=== PATIENT | male | born 1950 | race Caucasian/White ===

== ENCOUNTER 2020-05-28 10:00 | Day surgery (SDC) | payer MEDICARE, MEDICAID, SELFPAY ==
[2020-05-21 15:26] VITALS: BMI 34.0
--- NOTE | 2020-05-26 09:07 | P.CONAN_ITS ---
Documented by User: Jyoti Whitaker 05/28/20 10:25 HPI - Anesthesia Eval Consult details Narrative: 69yo M for Colonoscopy Extensive cardiac and vascular disease Patient to cardiology 05/27/20 for clearance. Exertional capacity <4 METS. Increased risk, but no further testing due to low risk procedure. ICD interrogated 05/27/20 [facility] Past Medical History Medical History Angina pectoris CAD (coronary artery disease) Elevated cholesterol GERD (gastroesophageal reflux disease) History of blood transfusion HTN (hypertension) Hx of decubitus ulcer ICD (implantable cardioverter-defibrillator) in place Ischemic cardiomyopathy with implantable cardioverter-defibrillator (ICD) Myocardial infarction On beta cole at home Paroxysmal ventricular tachycardia Peripheral arterial disease PVD (peripheral vascular disease) Renal artery stenosis Surgical History Surgical History (Updated 05/28/20 @ 10:25 by Jyoti Whitaker) H/O cardiac catheterization History of heart artery stent History of renal stent Hx of qjrfv-tlccy-dnorcek bypass Hx of CABG Hx of colonoscopy Social History Social History Do you presently have visiting nurse or other home services: No Smoking Status: Former smoker Smoking Quit Date: Age 35 Use of substances other than those prescribed or required for medical reasons: No Have you been hit, kicked, punched, or otherwise hurt by someone within the past year? If so, by whom?: No Advance Directives: No Advance Directives Information Provided: No Advance Directives on File: No Recently lost weight without trying: No Meds Allergies Allergy/AdvReac Type Severity Reaction Status Date / Time meperidine [Demerol] Allergy Unknown Nausea and Verified 05/21/20 14:56 Vomiting ivp dye Allergy Unknown redness Uncoded 05/21/20 14:56 and itching Home Medications Medication Instructions Recorded Confirmed Type acetaminophen 650 mg PO Q6H PRN 05/21/20 05/21/20 History acyclovir 400 mg PO 05/21/20 History aspirin [Aspir-81] 81 mg PO DAILY 05/21/20 05/28/20 History calcium carbonate [Calcium 500] 500 mg PO BID 05/21/20 05/21/20 History clopidogrel 1 tab PO DAILY 05/21/20 05/28/20 History ezetimibe 1 tab PO DAILY 05/21/20 05/21/20 History isosorbide mononitrate 1 tab PO DAILY 05/21/20 05/28/20 History losartan 25 mg PO 05/21/20 History metoprolol succinate 1 tab PO DAILY 05/21/20 05/28/20 History metoprolol succinate 1 tab PO DAILY 05/21/20 05/28/20 History nitroglycerin 0.4 mg SUBLINGUAL 05/21/20 History omeprazole 1 cap PO DAILY 05/21/20 05/21/20 History rosuvastatin 1 tab PO BEDTIME 05/21/20 05/21/20 History Exam Exam Date and Time: May 26, 2020 0907 Height,Weight and Vital Signs: Height 5 ft 9 in Weight 104.326 kg Pertinent Lab Results Pertinent Lab Results: Laboratory Tests 12/19/19 04/27/20 10:30 11:30 WBC 8.7 Hgb 12.9 L Hct 39.3 L Plt Count 233 Sodium 138 Potassium 4.4 Chloride 102 BUN 23 H Creatinine 1.22 Assessment and Plan Assessment Anesthesia Assessment: Chart Reviewed Documented by User: Hermes Gonzalez 05/28/20 12:07 [facility] Past Medical History Medical History Angina pectoris CAD (coronary artery disease) Elevated cholesterol GERD (gastroesophageal reflux disease) History of blood transfusion HTN (hypertension) Hx of decubitus ulcer ICD (implantable cardioverter-defibrillator) in place Ischemic cardiomyopathy with implantable cardioverter-defibrillator (ICD) Myocardial infarction On beta cole at home Paroxysmal ventricular tachycardia Peripheral arterial disease PVD (peripheral vascular disease) Renal artery stenosis Surgical History Surgical History (Updated 05/28/20 @ 10:25 by Jyoti Whitaker) H/O cardiac catheterization History of heart artery stent History of renal stent Hx of okvhj-hnprr-yorkgjj bypass Hx of CABG Hx of colonoscopy Social History Social History Do you presently have visiting nurse or other home services: No Smoking Status: Former smoker Smoking Quit Date: Age 35 Use of substances other than those prescribed or required for medical reasons: No Have you been hit, kicked, punched, or otherwise hurt by someone within the past year? If so, by whom?: No Advance Directives: No Advance Directives Information Provided: No Advance Directives on File: No Recently lost weight without trying: No Meds Allergies Allergy/AdvReac Type Severity Reaction Status Date / Time meperidine [Demerol] Allergy Unknown Nausea and Verified 05/21/20 14:56 Vomiting ivp dye Allergy Unknown redness Uncoded 05/21/20 14:56 and itching Home Medications Medication Instructions Recorded Confirmed Type acetaminophen 650 mg PO Q6H PRN 05/21/20 05/21/20 History acyclovir 400 mg PO 05/21/20 History aspirin [Aspir-81] 81 mg PO DAILY 05/21/20 05/28/20 History calcium carbonate [Calcium 500] 500 mg PO BID 05/21/20 05/21/20 History clopidogrel 1 tab PO DAILY 05/21/20 05/28/20 History ezetimibe 1 tab PO DAILY 05/21/20 05/21/20 History isosorbide mononitrate 1 tab PO DAILY 05/21/20 05/28/20 History losartan 25 mg PO 05/21/20 History metoprolol succinate 1 tab PO DAILY 05/21/20 05/28/20 History metoprolol succinate 1 tab PO DAILY 05/21/20 05/28/20 History nitroglycerin 0.4 mg SUBLINGUAL 05/21/20 History omeprazole 1 cap PO DAILY 05/21/20 05/21/20 History rosuvastatin 1 tab PO BEDTIME 05/21/20 05/21/20 History Exam Airway Mallampati Class: II TM Dist: >3cm Neck ROM: Limited Heart: RRR Assessment and Plan Assessment Anesthesia Assessment: Anesthesia Plan Discussed Final Anesthetic Review NPO: Yes ASA Class: IV Anesthetic Plan Anesthetic Plan: MAC:
[2020-05-28 11:41] VITALS: BP 158/66; PULSE 46; RESP 18; TEMP 36.4; O2SAT 100
--- NOTE | 2020-05-28 12:06 | P.HPSUR_ITS ---
Pre-Procedural Eval Section B Chief Complaint: Screening Relevant Family History (Specify if Yes): No Relevant Social History: None Present Medications: see Short Stay Collaborative assessment Medical History: Significant History (CAD, [place], renal art stenosis, HTN) History of Previous Operations: Relevant previous surgery/procedure and date(s) (CABG, renal artery stent) Allergies: Allergies Allergy/AdvReac Type Severity Reaction Status Date / Time meperidine [Demerol] Allergy Unknown Nausea and Verified 05/21/20 14:56 Vomiting ivp dye Allergy Unknown redness Uncoded 05/21/20 14:56 and itching Review of Systems Sugical H&P ROS: Negative: Constitution, Cardiovascular, Respiratory, Neurological, Psychiatric, Hem-Onc, Allergic/Immunologic, Gastrointestinal, Genitourinary, Musculoskeletal, Integumentary, Endocrine and Eyes/Ears/Nose/Throat Exam Surgical H&P Exam: Normal: HEENT, Normal: Heart, Normal: Lungs, Normal: Extre mities, Normal: Abdomen, Normal: Skin and Normal: Neurological Plan Diagnosis/Plan: Unchanged Patient has been examined and remains a candidate for the planned procedure
[2020-05-28 12:55] VITALS: BP 82/56; PULSE 42; RESP 12; TEMP 36.6; O2SAT 95
--- NOTE | 2020-05-28 12:55 | P.BOP_ITS ---
Brief Operative Note Date of procedure: 05/28/20 Pre-op diagnosis: colon screen Post-op diagnosis: same Procedure: Operative Information Procedure Description: Colonoscopy COLONOSCOPY Instrument: Olympus variable stiffness pediatric scope 190L Colonoscopy Monitoring: Vital signs and clinical assessment, continuous EKG monitoring, Pulse oximetry, Carbon Dioxide monitoring and blood pressure monitoring were done throughout the procedure. Colon withdrawal time was 18 minutes. Procedure: The patient was placed in the left lateral decubitis position and pre-procedure medications were administered. After a digital rectal examination of the ano-rectum, the video colonoscope was inserted into the rectum and advanced through the colon to the cecum/TI. The colonoscope was slowly withdrawn in a retrograde panoramic fashion and the colon mucosa was carefully examined including a retroflexed view of the rectum. Findings and interventions are described below. Procedure Difficulty: Findings: Terminal Ileum-normal Cecum: 5-6 mm sessile polyp removed with forceps Ascending Colon: normal Transverse Colon -normal Descending Colon: 10-12 mm sessile polyp removed with cold snare, 2 clips used to close defect Sigmoid Colon: severe diverticulosis with mucosal hypertrophy and large mouthed tics Rectum: Retroflexion with moderate sized internal hemorrhoids, grade 1 Anorectum - normal Colon preparation: [place] Bowel Preparation Scale Right colon; 3 Transverse colon: 2 Left colon; 3 (0 = Unprepared colon segment with mucosa not seen due to solid stool that cannot be cleared. 1 = Portion of mucosa of the colon segment seen, but other areas of the colon segment not well seen due to staining, residual stool and/or opaque liquid. 2 = Minor amount of residual staining, small fragments of stool and/or opaque liquid, but mucosa of colon segment seen well. 3 = Entire mucosa of colon segment seen well with no residual staining, small fragments of stool or opaque liquid) Impression and Post Procedure Diagnosis: sigmoid diverticulosis internal hemorrhoids polyps Plan: High fiber diet leaflet Avoid straining at stool, epsom salts and sitz bath as needed, anusol supps or cream prn Repeat Colonoscopy in 5-10 years pending path, if health allows, otherwise this would be considered his last screening colonoscopy. Above findings were reviewed with the patient and relevant handouts were provided if indicated. Surgeon: Mello Wallis MD Anesthesia: MAC Condition: stable Disposition: PACU
[2020-05-28 13:18] VITALS: BP 104/48; PULSE 50; RESP 14; O2SAT 96
[2020-05-28 13:33] VITALS: BP 128/56; PULSE 43; RESP 16; TEMP 36.6; O2SAT 98
== END 2020-05-28 14:13 | disposition home or self-care (01) ==
PROVIDERS: PCP Nurse Practitioner Family; Visit Provider Internal Medicine Gastroenterology
PROC: 0DJD8ZZ Inspection of Lower Intestinal Tract, Via Natural or Artificial Opening Endoscopic (ICD-10-PCS; CPT 45378; principal; 2020-05-28 12:50)
DX: Z12.11 Encounter for screening for malignant neoplasm of colon (principal); D12.4 Benign neoplasm of descending colon; K63.5 Polyp of colon; K57.30 Diverticulosis of large intestine without perforation or abscess without bleeding; K64.0 First degree hemorrhoids; K21.9 Gastro-esophageal reflux disease without esophagitis; I25.119 Atherosclerotic heart disease of native coronary artery with unspecified angina pectoris; Z98.61 Coronary angioplasty status; Z95.1 Presence of aortocoronary bypass graft; I10 Essential (primary) hypertension; I73.9 Peripheral vascular disease, unspecified; I70.1 Atherosclerosis of renal artery; Z95.810 Presence of automatic (implantable) cardiac defibrillator; E78.00 Pure hypercholesterolemia, unspecified; Z79.899 Other long term (current) drug therapy
CPT/HCPCS: 45385; 45380; 88305

== ENCOUNTER → 2020-06-08 08:31 | Outpatient (BNVA) | payer MEDICARE, MEDICAID, SELFPAY | PROVIDERS: PCP Nurse Practitioner Family; Referring Provider Nurse Practitioner Family; Visit Provider Nurse Practitioner | DX: D12.6 Benign neoplasm of colon, unspecified (principal) | CPT/HCPCS: 99213 ==

== ENCOUNTER 2020-06-29 08:47 | Outpatient (REF) | payer MEDICARE, MEDICAID, SELFPAY ==
--- NOTE | 2020-06-29 | US_ITS ---
EXAMINATION: NONINVASIVE ASSESSMENT OF THE ARTERIES OF BOTH LOWER EXTREMITIES WITH PVR EXAM AND BILATERAL LOWER EXTREMITY DUPLEX CLINICAL INFORMATION: Peripheral vascular disease TECHNIQUE: Ankle pulse volume recordings, ankle pressure measurements and ankle brachial indices were obtained of the lower extremity arterial system bilaterally in addition to duplex Doppler techniques with wave form analysis and measurement of velocities in the common femoral, profunda femoral, superficial femoral, popliteal and tibial arteries. The study was performed only at rest. COMPARISON: Previous exam December 2019 FINDINGS: There is a left axillary artery to left common femoral artery and left femoral to right femoral artery bypass graft. Both grafts are patent. Peak systolic velocity in the subclavian artery is 173 to 191 cm/s with biphasic flow. Peak systolic velocity in the graft is 238 cm/s with biphasic flow. There is hypoechoic material seen around the graft suggestive of a hematoma or leak that is unchanged. The femoral to femoral bypass graft is patent. Peak systolic velocity measures 207 cm/s with biphasic flow. RIGHT LE. The right ankle-brachial index is: 0.5 2. Right ankle pressure: Decreased 3. Right ankle PVR waveform: Dampened 4. Right direct duplex Doppler findings: * Common femoral artery: 36 cm/s, Diastolic flow reversal: No, biphasic * Superficial femoral artery (proximal, mid, distal): 67 proximal, 120 mid cm/s, the distal superficial femoral artery is occluded. Diastolic flow reversal: No, biphasic to monophasic. * Popliteal artery: Occluded * Posterior tibial artery: 8 cm/s, Diastolic flow reversal: No. Monophasic. The right profunda is occluded just beyond its origin. There is a graft off the right superficial femoral artery to the tibioperoneal trunk. This is occluded. LEFT LE. The left ankle-brachial index is: 0.78 2. Left ankle pressure: normal. 3. Left ankle PVR waveform: normal. 4. Left direct duplex Doppler findings: * Common femoral artery: 73 cm/s, Diastolic flow reversal: No, biphasic flow * Superficial femoral artery (proximal, mid, distal): 38 cm/s proximally and occluded in the mid and distal portions., Diastolic flow reversal: No, biphasic. * There is a graft off the left superficial femoral artery to the tibial peroneal trunk that is patent. This is not well visualized proximally/proximal anastomosis is not seen. Peak systolic velocity measures 51 cm/s with biphasic flow. * Popliteal artery: 23 cm/s, Diastolic flow reversal: No, monophasic. * Posterior tibial artery: 26 cm/s, Diastolic flow reversal: No, biphasic. The left profunda is patent. DOMINIQUE Reference: * >0.97-1.25 = normal - no significant arterial disease * 0.75-0.96 = mild peripheral arterial disease * 0.5-0.74 = moderate peripheral arterial disease * <0.50 = severe peripheral arterial disease US/US DOMINIQUE complete IMPRESSION: Patent left axillary to left femoral bypass graft. Patent femoral to femoral bypass graft. There is increased soft tissue seen surrounding the graft suggestive of a hematoma or leak that is stable. Right: The right DOMINIQUE is 0.5. The [place] right distal superficial femoral and popliteal arteries are occluded. The right femoral to tibioperoneal bypass graft is occluded. Left: The left DOMINIQUE is 0.8. The left superficial femoral artery to tibioperoneal trunk bypass graft is patent. The left posterior tibial is patent with biphasic flow. Findings are similar to December 2019 exam.
== END 2020-06-29 08:48 | disposition home or self-care (01) ==
LOC: HO.US 08:47
PROVIDERS: Visit Provider Surgery Vascular Surgery
DX: I73.9 Peripheral vascular disease, unspecified (principal)
CPT/HCPCS: 93923; 93925

== ENCOUNTER 2020-07-13 10:28 | Outpatient (REF) | payer MEDICARE, MEDICAID, SELFPAY ==
[2020-07-13 12:20] LABS: Alanine Aminotransferase 16 U/L (0-40); Albumin Level 4.2 g/dL (3.5-5.0); Alkaline Phosphatase 48 U/L (39-117); Anion Gap 13 (12-20); Aspartate Amino Transferase 20 U/L (5-37); Bilirubin Total 0.6 mg/dL (0.0-1.0); Blood Urea Nitrogen 16 mg/dL (9-16); Carbon Dioxide 28 mmol/L (22-29); Chloride 105 mmol/L (96-108); Cholesterol 146 mg/dL; Estimated Glomerular Filt Rate > 60; Glucose Fasting 97 mg/dL (60-99); HDL Cholesterol 44 mg/dL; LDL Cholesterol Calculated 61 mg/dl; Potassium 4.6 mmol/l (3.3-5.1); Sodium 141 mmol/L (135-145); Total Protein 6.9 g/dL (6.5-8.0); Triglycerides 209 mg/dL
== END 2020-07-13 10:29 | disposition home or self-care (01) ==
LOC: HO.HMGCLDS 10:28
PROVIDERS: PCP Nurse Practitioner Family; Visit Provider Nurse Practitioner Family
DX: I73.9 Peripheral vascular disease, unspecified (principal)
CPT/HCPCS: 80053; 80061

== ENCOUNTER → 2020-07-14 09:01 | Outpatient (BNVA) | payer MEDICAID, MEDICARE, SELFPAY | PROVIDERS: PCP Nurse Practitioner Family; Referring Provider Nurse Practitioner Family; Visit Provider Surgery Vascular Surgery | DX: Z76.89 Persons encountering health services in other specified circumstances (principal) ==

== ENCOUNTER 2020-07-17 09:43 | Outpatient (REF) | payer MEDICARE, MEDICAID, SELFPAY ==
[2020-07-17 12:04] LABS: Prostate Specific Antigen Scr 0.78 ng/mL (<0.05-4.0)
== END 2020-07-17 09:44 | disposition home or self-care (01) ==
LOC: HO.HMGCLDS 09:43
PROVIDERS: PCP Nurse Practitioner Family; Visit Provider Nurse Practitioner Family
DX: Z12.5 Encounter for screening for malignant neoplasm of prostate (principal)
CPT/HCPCS: 84153

== ENCOUNTER → 2020-10-08 14:44 | Outpatient (BNVA) | payer MEDICARE, MEDICAID, SELFPAY | PROVIDERS: PCP Nurse Practitioner Family; Visit Provider Surgery Vascular Surgery | DX: I73.9 Peripheral vascular disease, unspecified (principal) | CPT/HCPCS: 99212 ==

== ENCOUNTER 2020-10-19 13:17 | Outpatient (REF) | payer MEDICARE, MEDICAID, SELFPAY ==
--- NOTE | ~2020-10-19 | US_ITS ---
EXAMINATION: COLOR-FLOW DUPLEX IMAGING OF THE BILATERAL LOWER EXTREMITY ARTERIAL SYSTEM. VELOCITY MEASUREMENTS THROUGHOUT THE FEMORAL ARTERIES. CLINICAL INFORMATION: 70-year-old male status post left axillary to bifemoral bypass graft and reverse saphenous vein graft in the right leg, now presenting with bilateral leg ischemia. COMPARISON: Bilateral leg arterial Doppler study and DOMINIQUE of 06/29/2020. FINDINGS: The left axillary to bifemoral bypass graft is occluded. RIGHT FEMORAL RUNOFF VELOCITIES: The right common femoral artery is occluded. The right profunda femoral artery is occluded. Right superficial femoral artery is occluded. Right popliteal velocity is occluded. Posterior tibial velocity is occluded proximally with trace flow distally. Anterior tibial velocity is occluded. Dorsal pedis velocity is occluded. No flow is seen in the reverse saphenous vein bypass graft in the right leg. Right DOMINIQUE: 0.27 LEFT FEMORAL RUNOFF VELOCITIES: The left common femoral artery measures 67cm/s and is monophasic. The left profunda femoral artery is occluded. Left proximal superficial femoral artery measures 20 cm/s and is monophasic. Mid and distal superficial femoral artery are occluded. Left popliteal velocity is occluded. Posterior tibial velocity is 32cm/s and flow is monophasic. Anterior tibial velocity is occluded. Dorsal pedis velocity is trace and flow is monophasic. The superficial femoral vein occludes just after the origin of the left reverse saphenous vein graft. Graft is patent as entirely. The posterior tibial artery has flow. Left DOMINIQUE: 0.54 US/US arterial duplex LE BI IMPRESSION: 1. Occluded subclavian to femoral-femoral bypass graft which is new since the prior examination. 2. Occluded right reverse saphenous vein graft from the common femoral artery to the tibioperoneal trunk as previously seen. Essentially no flow seen in the [place] arteries of the right leg. 3. Persistent patent left reversed saphenous vein graft from the proximal superficial femoral artery to the tibioperoneal trunk.
--- NOTE | ~2020-10-19 | US_ITS ---
EXAMINATION: COLOR-FLOW DUPLEX IMAGING OF THE BILATERAL LOWER EXTREMITY ARTERIAL SYSTEM. VELOCITY MEASUREMENTS THROUGHOUT THE FEMORAL ARTERIES. CLINICAL INFORMATION: 70-year-old male status post left axillary to bifemoral bypass graft and reverse saphenous vein graft in the right leg, now presenting with bilateral leg ischemia. COMPARISON: Bilateral leg arterial Doppler study and DOMINIQUE of 06/29/2020. FINDINGS: The left axillary to bifemoral bypass graft is occluded. RIGHT FEMORAL RUNOFF VELOCITIES: The right common femoral artery is occluded. The right profunda femoral artery is occluded. Right superficial femoral artery is occluded. Right popliteal velocity is occluded. Posterior tibial velocity is occluded proximally with trace flow distally. Anterior tibial velocity is occluded. Dorsal pedis velocity is occluded. No flow is seen in the reverse saphenous vein bypass graft in the right leg. Right DOMINIQUE: 0.27 LEFT FEMORAL RUNOFF VELOCITIES: The left common femoral artery measures 67cm/s and is monophasic. The left profunda femoral artery is occluded. Left proximal superficial femoral artery measures 20 cm/s and is monophasic. Mid and distal superficial femoral artery are occluded. Left popliteal velocity is occluded. Posterior tibial velocity is 32cm/s and flow is monophasic. Anterior tibial velocity is occluded. Dorsal pedis velocity is trace and flow is monophasic. The superficial femoral vein occludes just after the origin of the left reverse saphenous vein graft. Graft is patent as entirely. The posterior tibial artery has flow. Left DOMINIQUE: 0.54 US/US DOMINIQUE complete IMPRESSION: 1. Occluded subclavian to femoral-femoral bypass graft which is new since the prior examination. 2. Occluded right reverse saphenous vein graft from the common femoral artery to the tibioperoneal trunk as previously seen. Essentially no flow seen in the [place] arteries of the right leg. 3. Persistent patent left reversed saphenous vein graft from the proximal superficial femoral artery to the tibioperoneal trunk.
== END 2020-10-19 13:18 | disposition home or self-care (01) ==
LOC: HO.US 13:17
PROVIDERS: PCP Nurse Practitioner Family; Visit Provider Surgery Vascular Surgery
DX: I65.29 Occlusion and stenosis of unspecified carotid artery (principal); I70.213 Atherosclerosis of native arteries of extremities with intermittent claudication, bilateral legs
CPT/HCPCS: 93923; 93925

== ENCOUNTER 2020-10-30 10:57 | Outpatient (REF) | payer MEDICARE, MEDICAID, SELFPAY ==
[2020-10-30 15:12] LABS: Alanine Aminotransferase 16 U/L (0-40); Albumin Level 4.3 g/dL (3.5-5.0); Alkaline Phosphatase 42 U/L (39-117); Anion Gap 15 (12-20); Aspartate Amino Transferase 22 U/L (5-37); Bilirubin Total 0.7 mg/dL (0.0-1.0); Blood Urea Nitrogen 20 mg/dL (9-16); Carbon Dioxide 23 mmol/L (22-29); Chloride 105 mmol/L (96-108); Cholesterol 145 mg/dL; Estimated Glomerular Filt Rate > 60; Glucose Fasting 92 mg/dL (60-99); HDL Cholesterol 45 mg/dL; LDL Cholesterol Calculated 58 mg/dl; Potassium 4.3 mmol/L (3.3-5.1); Sodium 139 mmol/L (135-145); Total Protein 6.9 g/dL (6.5-8.0); Triglycerides 211 mg/dL
== END 2020-10-30 10:58 | disposition home or self-care (01) ==
LOC: HO.HMGCLDS 10:57
PROVIDERS: PCP Nurse Practitioner Family; Visit Provider Nurse Practitioner Family
DX: I73.9 Peripheral vascular disease, unspecified (principal)
CPT/HCPCS: 36415; 80053; 80061

== ENCOUNTER → 2020-11-03 11:26 | Outpatient (BNVA) | payer MEDICARE, MEDICAID, SELFPAY | PROVIDERS: PCP Nurse Practitioner Family; Visit Provider Surgery Vascular Surgery | CPT/HCPCS: 99212 ==

== ENCOUNTER 2021-06-09 08:35 | Outpatient (REF) | payer MEDICARE, MEDICAID, SELFPAY ==
[2021-06-09 11:25] LABS: Appearance Urine CLEAR; Color Urine YELLOW; Glucose Urine UA NEG (NEG); Leukocyte Esterase Urine NEG (NEG); Nitrite Urine NEG (NEG); UACC Culture Trigger NO; Urine Blood NEG (NEG); Urine Ketones NEG (NEG); Urine Protein 2+ MG/DL (NEG-TRACE)
[2021-06-09 11:43] LABS: RBC Urine 0-2 /HPF (0); Squamous Epithelial Cell Urine TRACE /LPF; WBC Urine 0-2 /HPF (0-4)
[2021-06-09 11:58] LABS: Alanine Aminotransferase 25 U/L (0-40); Albumin Level 4.4 g/dL (3.5-5.0); Alkaline Phosphatase 35 U/L (39-117); Anion Gap 13 (12-20); Aspartate Amino Transferase 24 U/L (5-37); Bilirubin Total 0.9 mg/dL (0.0-1.0); Blood Urea Nitrogen 17 mg/dL (9-16); Calcium 9.3 mg/dL (8.4-10.2); Carbon Dioxide 27 mmol/L (22-29); Chloride 103 mmol/L (96-108); Cholesterol 133 mg/dL; Estimated Glomerular Filt Rate > 60; Glucose Fasting 99 mg/dL (60-99); HDL Cholesterol 41 mg/dL; LDL Cholesterol Calculated 51 mg/dl; Potassium 4.2 mmol/L (3.3-5.1); Sodium 139 mmol/L (135-145); Total Protein 6.9 g/dL (6.5-8.0); Triglycerides 208 mg/dL
[2021-06-09 12:22] LABS: TSH reflex Free T4 1.75 uIU/mL (0.32-4.0)
== END 2021-06-09 08:36 | disposition home or self-care (01) ==
LOC: HO.HMGCLDS 08:35
PROVIDERS: PCP Nurse Practitioner Family; Visit Provider Nurse Practitioner Family
DX: I21.9 Acute myocardial infarction, unspecified (principal); E78.1 Pure hyperglyceridemia; Z12.5 Encounter for screening for malignant neoplasm of prostate
CPT/HCPCS: 36415; 80053; 80061; 81001; 84153; 84443

== ENCOUNTER 2021-07-05 11:29 | Outpatient (REF) | payer MEDICARE, MEDICAID, SELFPAY | END 2021-07-05 11:30 | disposition home or self-care (01) | LOC: HO.HMGCLDS 11:29 | PROVIDERS: Visit Provider Internal Medicine | DX: Z20.822 Contact with and (suspected) exposure to COVID-19 (principal) | CPT/HCPCS: C9803; U0003; U0005 ==

== ENCOUNTER 2021-07-28 09:39 | Outpatient (REF) | payer MEDICARE, MEDICAID, SELFPAY ==
[2021-07-28 11:35] LABS: Appearance Urine CLEAR; Color Urine YELLOW; Glucose Urine UA NEG (NEG); Leukocyte Esterase Urine NEG (NEG); Nitrite Urine NEG (NEG); Specific Gravity - Urine 1.025 (1.005-1.025); UACC Culture Trigger NO; Urine Blood NEG (NEG); Urine Ketones NEG (NEG); Urine Protein 2+ MG/DL (NEG-TRACE)
[2021-07-28 12:04] LABS: Alanine Aminotransferase 28 U/L (0-40); Albumin Level 4.2 g/dL (3.5-5.0); Alkaline Phosphatase 32 U/L (39-117); Anion Gap 15 (12-20); Aspartate Amino Transferase 25 U/L (5-37); Bilirubin Total 0.7 mg/dL (0.0-1.0); Blood Urea Nitrogen 19 mg/dL (9-16); Calcium 9.4 mg/dL (8.4-10.2); Carbon Dioxide 27 mmol/L (22-29); Chloride 103 mmol/L (96-108); Cholesterol 134 mg/dL; Estimated Glomerular Filt Rate > 60; Glucose Fasting 98 mg/dL (60-99); HDL Cholesterol 43 mg/dL; LDL Cholesterol Calculated 44 mg/dl; Potassium 4.5 mmol/L (3.3-5.1); Sodium 140 mmol/L (135-145); Total Protein 6.9 g/dL (6.5-8.0); Triglycerides 239 mg/dL
[2021-07-28 12:23] LABS: Squamous Epithelial Cell Urine TRACE /LPF
[2021-07-28 12:24] LABS: RBC Urine 0-2 /HPF (0); WBC Urine 0-2 /HPF (0-4)
[2021-07-28 12:29] LABS: TSH reflex Free T4 2.37 uIU/mL (0.32-4.0)
== END 2021-07-28 09:40 | disposition home or self-care (01) ==
LOC: HO.HMGCLDS 09:39
PROVIDERS: PCP Nurse Practitioner Family; Visit Provider Nurse Practitioner Family
DX: E78.5 Hyperlipidemia, unspecified (principal); I21.9 Acute myocardial infarction, unspecified
CPT/HCPCS: 36415; 80053; 80061; 81001; 84443

== ENCOUNTER 2021-10-13 08:06 | Outpatient (REF) | payer MEDICARE, MEDICAID, SELFPAY ==
[2021-10-13 11:17] LABS: Appearance Urine CLEAR; Color Urine YELLOW; Glucose Urine UA NEG (NEG); Leukocyte Esterase Urine NEG (NEG); Nitrite Urine NEG (NEG); PH 6.5 (5.0-8.0); Specific Gravity - Urine 1.025 (1.005-1.025); UACC Culture Trigger NO; Urine Blood TRACE (NEG); Urine Ketones NEG (NEG); Urine Protein 3+ MG/DL (NEG-TRACE)
[2021-10-13 11:52] LABS: RBC Urine 0 /HPF (0); WBC Urine 0-2 /HPF (0-4)
[2021-10-13 11:54] LABS: Cholesterol 137 mg/dL; HDL Cholesterol 45 mg/dL; LDL Cholesterol Calculated 45 mg/dl; Triglycerides 235 mg/dL
== END 2021-10-13 08:07 | disposition home or self-care (01) ==
LOC: HO.HMGCLDS 08:06
PROVIDERS: Visit Provider Nurse Practitioner Family
DX: E78.1 Pure hyperglyceridemia (principal); I21.9 Acute myocardial infarction, unspecified
CPT/HCPCS: 36415; 80061; 81001

== ENCOUNTER 2022-03-16 10:34 | Outpatient (REF) | payer MEDICARE, SELFPAY ==
[2022-03-16 13:28] LABS: MANUAL DIFF FLAG NO
[2022-03-16 13:39] LABS: Basophils Absolute Auto 0.1 X10*3/uL (0.0-0.2); Basophils Percent Auto 0.8 % (0-2); Eosinophils Absolute Auto 0.4 X10*3/uL (0.0-0.4); Hematocrit 42.7 % (42.0-52.0); Hemoglobin 13.8 g/dl (14.0-18.0); Imm Gran Abs Auto 0.04 X10*3/uL (0.00-0.03); Imm Gran Pct Auto 0.4 % (0.0-0.4); Lymphocytes Absolute Auto 3.4 X10*3/uL (1.2-4.9); Lymphocytes Percent Auto 34.3 % (20-40); Mean Corpuscular HGB Conc 32.3 g/dl (31.0-36.0); Mean Corpuscular Hemoglobin 28.9 pg (27.0-33.0); Mean Corpuscular Volume 89.3 fL (80.0-98.0); Mean Platelet Volume 9.8 fL (9.4-12.4); Monocytes Absolute Auto 0.6 X10*3/uL (0.1-1.2); Neutrophils Absolute Auto 5.4 x10*3/uL (2.0-8.3); Neutrophils Percent Auto 54.5 % (45-73); Platelet Count 208 X10*3/uL (160-400); Red Blood Count 4.78 X10*6/uL (4.60-5.80); Red Cell Distribution Width 13.4 % (11.0-16.0); White Blood Count 9.8 X10*3/uL (4.8-10.8)
[2022-03-16 13:58] LABS: Appearance Urine CLOUDY; Color Urine YELLOW; Glucose Urine UA NEG (NEG); Leukocyte Esterase Urine NEG (NEG); Nitrite Urine NEG (NEG); Specific Gravity - Urine >= 1.030 (1.005-1.025); UACC Culture Trigger NO; Urine Blood NEG (NEG); Urine Ketones NEG (NEG); Urine Protein 2+ MG/DL (NEG-TRACE)
[2022-03-16 14:23] LABS: Amorphous Sediment Urine 3+ /LPF; Bacteria Urine TRACE /LPF; RBC Urine 0-2 /HPF (0); Squamous Epithelial Cell Urine TRACE /LPF; WBC Urine 0-2 /HPF (0-4)
[2022-03-16 14:36] LABS: TSH reflex Free T4 1.82 uIU/mL (0.32-4.0)
[2022-03-16 15:12] LABS: Alanine Aminotransferase 19 U/L (0-40); Albumin Level 4.5 g/dL (3.5-5.0); Alkaline Phosphatase 33 U/L (39-117); Anion Gap 18 (12-20); Aspartate Amino Transferase 17 U/L (5-37); Bilirubin Total 0.6 mg/dL (0.0-1.0); Blood Urea Nitrogen 27 mg/dL (9-16); Calcium 9.1 mg/dL (8.4-10.2); Carbon Dioxide 23 mmol/L (22-29); Chloride 106 mmol/L (96-108); Cholesterol 127 mg/dL; Estimated Glomerular Filt Rate 51; Glucose Fasting 107 mg/dL (60-99); HDL Cholesterol 38 mg/dL; LDL Cholesterol Calculated 50 mg/dl; Potassium 4.8 mmol/L (3.3-5.1); Sodium 142 mmol/L (135-145); Total Protein 7.2 g/dL (6.5-8.0); Triglycerides 196 mg/dL
== END 2022-03-16 10:35 | disposition home or self-care (01) ==
LOC: HO.HMGCLDS 10:34
PROVIDERS: PCP Nurse Practitioner Family; Visit Provider Nurse Practitioner Family
DX: E78.5 Hyperlipidemia, unspecified (principal)
CPT/HCPCS: 36415; 80053; 80061; 81001; 81003; 84443; 85025

== ENCOUNTER 2022-04-21 10:00 | Outpatient (REF) | payer MEDICARE, MEDICAID, SELFPAY ==
[2022-04-21 12:55] LABS: Prostate Specific Antigen Scr 0.73 ng/mL (<0.05-4.0)
== END 2022-04-21 10:01 | disposition home or self-care (01) ==
LOC: HO.HMGCLDS 10:00
PROVIDERS: PCP Nurse Practitioner Family; Visit Provider Nurse Practitioner Family
DX: Z12.5 Encounter for screening for malignant neoplasm of prostate (principal)
CPT/HCPCS: 36415; 84153

== ENCOUNTER 2023-01-10 12:02 | Outpatient (REF) | payer MEDICARE, MEDICAID, SELFPAY ==
--- NOTE | ~2023-01-10 | XR_ITS ---
EXAMINATION: XR SHOULDER, LEFT CLINICAL INFORMATION: Left shoulder pain. COMPARISON: None available. TECHNIQUE: AP external rotation, Grashey, scapular Y, and axillary views of the left shoulder. FINDINGS: There are some degenerative changes present at the AC joint. Some minimal degenerative changes seen at the inferior glenoid with some minimal sclerosis. The glenohumeral joint is preserved. No calcification is seen in the rotator cuff. Changes of CABG and median sternotomy are noted. The visualized ribs are unremarkable. XR/XR shoulder LT min 2V IMPRESSION: Mild degenerative changes in the AC joint and inferior glenoid.
== END 2023-01-10 12:03 | disposition home or self-care (01) ==
LOC: HO.XRAY 12:02
PROVIDERS: PCP Nurse Practitioner Family; Visit Provider Nurse Practitioner Family
DX: M25.512 Pain in left shoulder (principal)
CPT/HCPCS: 73030

== ENCOUNTER 2023-03-16 09:04 | Outpatient (REF) | payer MEDICARE, MEDICAID, SELFPAY ==
[2023-03-16 11:26] LABS: MANUAL DIFF FLAG NO
[2023-03-16 11:47] LABS: Basophils Absolute Auto 0.1 X10*3/uL (0.0-0.2); Basophils Percent Auto 0.9 % (0-2); Eosinophils Absolute Auto 0.3 X10*3/uL (0.0-0.4); Eosinophils Percent Auto 4.1 % (0-4); Hematocrit 40.4 % (42.0-52.0); Imm Gran Abs Auto 0.01 X10*3/uL (0.00-0.03); Imm Gran Pct Auto 0.1 % (0.0-0.4); Lymphocytes Absolute Auto 2.5 X10*3/uL (1.2-4.9); Lymphocytes Percent Auto 35.6 % (20-40); Mean Corpuscular HGB Conc 32.2 g/dl (31.0-36.0); Mean Corpuscular Hemoglobin 29.1 pg (27.0-33.0); Mean Corpuscular Volume 90.4 fL (80.0-98.0); Mean Platelet Volume 10.2 fL (9.4-12.4); Monocytes Absolute Auto 0.4 X10*3/uL (0.1-1.2); Neutrophils Absolute Auto 3.7 x10*3/uL (2.0-8.3); Neutrophils Percent Auto 53.3 % (45-73); Platelet Count 165 X10*3/uL (160-400); Red Blood Count 4.47 X10*6/uL (4.60-5.80); Red Cell Distribution Width 13.5 % (11.0-16.0); White Blood Count 6.9 X10*3/uL (4.8-10.8)
[2023-03-16 12:05] LABS: Alanine Aminotransferase 15 U/L (0-40); Albumin Level 4.3 g/dL (3.5-5.0); Alkaline Phosphatase 29 U/L (39-117); Anion Gap 16 (12-20); Aspartate Amino Transferase 19 U/L (5-37); Bilirubin Total 0.6 mg/dL (0.0-1.0); Blood Urea Nitrogen 23 mg/dL (9-16); Calcium 9.6 mg/dL (8.4-10.2); Carbon Dioxide 20 mmol/L (22-29); Chloride 108 mmol/L (96-108); Cholesterol 115 mg/dL; Estimated Glomerular Filt Rate > 60; Glucose Fasting 103 mg/dL (60-99); HDL Cholesterol 38 mg/dL; LDL Cholesterol Calculated 42 mg/dl; Potassium 4.3 mmol/L (3.3-5.1); Sodium 140 mmol/L (135-145); Triglycerides 179 mg/dL
[2023-03-16 12:08] LABS: Prostate Specific Antigen Scr 0.69 ng/mL (<0.05-4.0)
[2023-03-16 12:10] LABS: Appearance Urine Clear; Color Urine Yellow; Glucose Urine UA Negative (Negative); Leukocyte Esterase Urine Negative (Negative); Nitrite Urine Negative (Negative); PH 5.5 (5.0-9.0); UMIC TRIGGER UACC YES; Urine Blood Trace (Negative); Urine Ketones Negative (Negative); Urine Protein 300 (3+) mg/dL (Neg-Trace)
[2023-03-16 12:14] LABS: Bacteria Urine None Seen (None Seen); Hyaline Casts Urine 0-2 /LPF (0-2); RBC Urine 0-2 /HPF (0-2); Squamous Epithelial Cell Urine 0-2 /HPF (0-2); WBC Urine 0-5 /HPF (0-5)
== END 2023-03-16 09:05 | disposition home or self-care (01) ==
LOC: HO.HMGCLDS 09:04
PROVIDERS: PCP Nurse Practitioner Family; Visit Provider Nurse Practitioner Family
DX: Z12.5 Encounter for screening for malignant neoplasm of prostate (principal); I73.9 Peripheral vascular disease, unspecified; E78.5 Hyperlipidemia, unspecified
CPT/HCPCS: 36415; 80053; 80061; 81001; 81003; 84153; 84443; 85025

== ENCOUNTER 2023-03-29 08:54 | Outpatient (AMB) | payer MEDICARE, MEDICAID, SELFPAY ==
--- NOTE | 2023-03-29 09:10 | AM.OFFVISMDC ---
Intake Intake Visit Reasons: Annual PE Allergies meperidine [Demerol] Allergy (Unknown, Verified 01/05/23 13:03) Nausea and Vomiting ivp dye Allergy (Unknown, Uncoded 03/28/22 12:49) redness and itching PFSH Medical History (Reviewed 01/05/23 @ 13:03 by Kwaku Flood [facility]) Angina pectoris CAD (coronary artery disease) Dilated cardiomyopathy Elevated cholesterol GERD (gastroesophageal reflux disease) History of blood transfusion HTN (hypertension) Hx of decubitus ulcer ICD (implantable cardioverter-defibrillator) in place Ischemic cardiomyopathy Ischemic cardiomyopathy with implantable cardioverter-defibrillator (ICD) Myocardial infarction On beta cole at home Paroxysmal ventricular tachycardia Peripheral arterial disease PVD (peripheral vascular disease) Renal artery stenosis Thoracic aortic aneurysm Surgical History H/O cardiac catheterization History of heart artery stent History of renal stent Hx of jdrba-jflva-nbytjat bypass Hx of CABG Hx of colonoscopy Hx of endoscopy Family History Father History of cancer Mother History of cancer Brother Substance use disorder Family/Other Substance use disorder Social History Housing: House Do you presently have visiting nurse or other home services: No Alcohol intake: never Patient Tobacco Use Status: Former Tobacco user Years Smoked: 35 years ago e-Cigarette/Vaping Use: Never Used Second Hand Smoke Exposure: No service: No Current occupational status: retired Cognitive needs: No Hearing needs: No Vision needs: Yes Coding Diagnoses
[2023-03-29 09:11] VITALS: BP 122/74; PULSE 54; O2SAT 97; BMI 31.9
--- NOTE | 2023-03-29 09:11 | A.OFFPC_ITS ---
Vital Signs 03/29/23 09:11 Height 5 ft 9 in Weight 216 lb 6 oz BMI 31.9 BP 122/74 Blood Pressure Location Rt brachial Position Sitting Pulse 54 Pulse Source Pulse Oximeter Pulse Oximetry (%) 97 Oxygen Delivery Method Room Air Intake Visit Reasons: Annual PE Allergies meperidine [Demerol] Allergy (Unknown, Verified 03/29/23 09:15) Nausea and Vomiting ivp dye Allergy (Unknown, Uncoded 03/29/23 09:15) redness and itching Tobacco use date assessed: 03/29/23 Fall risk assessment: 1 Fall in past year Last assessed Fall Risk: 03/29/23 Dental Screening Dental Screen Date: 03/29/23 Did you have a dental visit in the last 12 months?: No Did you have a dental problem in the last 6 months where you did not have access to dental care?: No Was dental information given to patient?: Patient has dentist HPI Annual PE HPI Details Pt is here for a PE. Labs were already performed. PSA is up to date. Pt has a family hx of prostate cancer (father). Colon screen is up to date. Pt sees a vascular specialist, cardiology, and podiatry. Pt reports hitting his eye with a piece of plastic. Denies blurred vision and drainage. He knows to seek medical attention with any worsening symptoms. Pt is fair skinned and has dry patches to his face and scalp. Will refer to derm. [facility] Medical History Angina pectoris CAD (coronary artery disease) Dilated cardiomyopathy Elevated cholesterol GERD (gastroesophageal reflux disease) History of blood transfusion HTN (hypertension) Hx of decubitus ulcer ICD (implantable cardioverter-defibrillator) in place Ischemic cardiomyopathy Ischemic cardiomyopathy with implantable cardioverter-defibrillator (ICD) Myocardial infarction On beta cole at home Paroxysmal ventricular tachycardia Peripheral arterial disease PVD (peripheral vascular disease) Renal artery stenosis Thoracic aortic aneurysm Surgical History H/O cardiac catheterization History of heart artery stent History of renal stent Hx of ggyoh-jfavv-ciuvjpb bypass Hx of CABG Hx of colonoscopy Hx of endoscopy Family History Father History of cancer Mother History of cancer Brother Substance use disorder Family/Other Substance use disorder Social History (Reviewed 03/29/23 @ 09:44 by Yifan Delcid, [facility]) Housing: House Do you presently have visiting nurse or other home services: No Alcohol intake: never Patient Tobacco Use Status: Former Tobacco user Years Smoked: 35 years ago e-Cigarette/Vaping Use: Never Used Second Hand Smoke Exposure: No service: No Current occupational status: retired Cognitive needs: No Hearing needs: No Vision needs: Yes Questionnaire Thrive Questionnaire Date Thrive assessed: 01/05/23 AUDIT C Alcohol Use Questionnaire (AUDIT-C) 1. How often do you have a drink containing alcohol?: Never 3. How often do you have six or more drinks on one occasion?: Never Total Score: 0 SAMMIE-7 AMB Questionnaire SAMMIE-7 Date SAMMIE - 7 assessed: 01/05/23 Feeling nervous, anxious, or on edge: 0 = Not at all Not being able to stop or control worryin = Several days Worrying too much about different things: 1 = Several days Trouble relaxin = Not at all Being so restless that it is hard to sit still: 0 = Not at all Becoming easily annoyed or irritable: 1 = Several days Feeling afraid as if something awful might happen: 1 = Several days Total SAMMIE-7 score (0-4 normal; 5-9 mild; 10-14 moderate; 15-21 severe): 4 Source: Developed by Drs. Torsten Schroeder, Ayaka Cam, Christopher Hinton and colleagues, with an educational neal from [employer]. SAMMIE-7 Assessment Billing SAMMIE-7 Assessment Tool: SAMMIE-7 Assessment 30924 Review of Systems Const Denies chills and Denies fever(s) Eyes Denies blurry vision ENT Denies vertigo, Denies dizziness and Denies sore throat Card Denies chest pain at rest, Denies chest pain with activity, Denies diaphoresis, Denies dyspnea and Denies dyspnea on exertion Resp Denies cough, Denies dyspnea, Denies dyspnea on exertion and Denies wheezing GI Denies abdominal pain, Denies melena, Denies hematochezia, Denies constipation, Denies diarrhea and Denies loose stools Denies hematuria Musc Denies numbness and Denies tingling Skin/Breast Denies lesions Neuro Denies vertigo, Denies dizziness, Denies numbness and Denies tingling Psych Denies anxiety, Denies depression, Denies homicidal ideation, Denies suicidal ideation and Denies other (substance abuse) Aller/Immun Denies wheezing Physical exam (Primary Care) Vital Signs: Last Vital Signs Pulse 54 03/29/23 09:11 BP 122/74 03/29/23 09:11 Pulse Ox 97 03/29/23 09:11 Oxygen Delivery Method Room Air 03/29/23 09:11 BMI result Body Mass Index 31.9 Tobacco/Smoking Status: Tobacco use Status Tobacco use date assessed 03/29/23 03/29/23 09:18 Patient Tobacco Use Status Former Tobacco user 03/29/23 09:18 e-Cigarette/Vaping Use Never Used 03/29/23 09:18 Thrive Assessment: Date of Thrive Assessment Date Thrive assessed 01/05/23 03/29/23 09:18 Const General: cooperative Nutritional Appearance: well nourished Orientation/consciousness: patient oriented x3 HENMT Other: lower lateral sclera (right eye), erythema. Head: Yes normal to inspection, Yes normocephalic and Yes atraumatic Ears: TM's normal bilaterally Eyes General: appearance normal, both eyes and all related structures Alignment and Position: alignment normal and position normal Neck Neck: Yes normal visual inspection and Yes no lymphadenopathy Thyroid: Thyroid normal Resp Effort & Inspection: normal respiratory effort Auscultation: clear to auscultation bilaterally Cardio Rate: regular rate Rhythm: regular rhythm Heart sounds: S1 normal heart sound present, S2 normal heart sound present and no murmurs GI Other: small umbilical hernia Palpation (GI): Soft to palpation and nontender Auscultation: normal bowel sounds Other: DEREK: ? slightly enlarged prostate, no nodules palpated Male General Exam: Yes normal external exam Penis: normal penis Scrotum: scrotum normal, testes descended bilaterally and no inguinal hernias Testes: no testicular mass Skin Other: scattered circular dry patches to face and scalp Rashes: no rashes Neuro General: patient oriented x3, moves all extremities, no focal motor deficits and deep tendon reflexes 2+ bilaterally Romberg Test: Negative Psych Appearance: grossly normal Mental Status: mental status grossly normal Speech and movement: Normal speech and movement present Affect: normal affect Attitude: cooperative Thought process: Normal thought process present Thought content: Normal thought content present Insight: Good insight present (Psych) Judgement: Good judgement present (Psych) Assessment and Plan Assessment & Plan (1) Physical exam: Code(s): Z00.00 - Encounter for general adult medical examination without abnormal findin gs (2) Skin lesion: Code(s): L98.9 - Disorder of the skin and subcutaneous tissue, unspecified Plan The patient agreed to the use of a medical customer service representative for this encounter. Scribed for JACLYN Ackerman by Juliana Harden medical customer service representative, on 03/29/2023 at 09:40 EST. Orders: Referrals Dermatology Referral L98.9 - Disorder of the skin and subcutaneous tissue, unspecified Coding Level of Care Code Est Pt Prev Care >65y(64957) Diagnoses Physical exam Z00.00 Skin lesion L98.9 Additional Codes SAMMIE-7 Assessment Billing - SAMMIE-7 Assessment Tool: SAMMIE-7 Assessment 61784 ([id number])
== END 2023-03-29 09:50 | disposition home or self-care (01) ==
PROVIDERS: Visit Provider Nurse Practitioner Family
DX: Z00.00 Encounter for general adult medical examination without abnormal findings (principal); L98.9 Disorder of the skin and subcutaneous tissue, unspecified
CPT/HCPCS: 99397

== ENCOUNTER 2023-03-29 09:59 | Outpatient (REF) | payer MEDICARE, MEDICAID, SELFPAY ==
[2023-03-29 13:50] LABS: Cholesterol 114 mg/dL; HDL Cholesterol 40 mg/dL; LDL Cholesterol Calculated 39 mg/dl; Triglycerides 177 mg/dL
== END 2023-03-29 10:00 | disposition home or self-care (01) ==
LOC: HO.HMGCLDS 09:59
PROVIDERS: PCP Nurse Practitioner Family; Visit Provider Nurse Practitioner Acute Care
DX: I25.10 Atherosclerotic heart disease of native coronary artery without angina pectoris (principal)
CPT/HCPCS: 36415; 80061

== ENCOUNTER 2023-04-04 10:00 | Outpatient (RCR) | payer MEDICARE, MEDICAID, SELFPAY ==
--- NOTE | 2023-02-28 16:18 | MHC.PT.EP ---
[facility] [place] Office [place] Office [place] Office [address] [phone] F: [phone] F: [phone] F: [phone] F: [phone] Physical Therapy Plan of Care Date of Evaluation: Date of Surgery: NA Diagnosis: PAIN IN L SHOULDER Assessment: Pt IS 72 YO M REFERRED TO PT FROM [facility] WITH PAIN IN L SHOULDER. Pt REPORTS HE FELL LANDING ON L SHOULDER IN SEPTEMBER. WAITED TO SEE IF IT WOULD GET BETTER AND IT DIDNT. WHEN AT PCP HE MENTIONED IT AND HAD XRAYS DONE AND REFERRED TO PT. HAD PT AFTER HEART SURGERY 3-4 YEARS AGO CAN ONLY WALK SMALL DISTANCES BECAUSE OF SIGNIFICANT PVD..HAS BEEN USING WC FOR ABOUT 3 YEARS Frequency and Duration: The patient will be seen 2X/WK X 6WKS Short Term Goals: 1. INCREASED POSTURE AWARENESS AND AWARENESS SHLDER CARE 2. I HEP WITH DC EX PLAN Rehabilitation Attendant Goals: 1. INCREASED L SHLDER ROM 10-20 DEGREES 2. DECREASED L SHLDER PAIN AT LEAST 50% WITH ADLS Treatment Plan: Modalities to reduce pain, spasms and effusion. Manual therapy to restore motion and function. Therapeutic exercise to improve strength and flexibility. Neuromuscular re-education for posture and balance. Therapeutic activities to return to functional activities of daily living. Electronically signed by: CJ MONTOYA PT Please sign and return to therapist. Thank you for your referral.
[2023-03-21 12:20] LABS: Urine Cytology See Pathology rpt
[2023-03-21 12:30] LABS: Appearance Urine Clear; Color Urine Yellow; Glucose Urine UA Negative (Negative); Leukocyte Esterase Urine Trace (Negative); Nitrite Urine Negative (Negative); PH 5.5 (5.0-9.0); Specific Gravity - Urine 1.025 (1.005-1.025); UMIC TRIGGER UA YES; UMIC TRIGGER UACC YES; Urine Blood Negative (Negative); Urine Ketones Negative (Negative); Urine Protein 100 (2+) mg/dL (Neg-Trace)
[2023-03-21 12:35] LABS: Bacteria Urine None Seen (None Seen); Hyaline Casts Urine 0-2 /LPF (0-2); RBC Urine 0-2 /HPF (0-2); Squamous Epithelial Cell Urine 0-2 /HPF (0-2); WBC Urine 0-5 /HPF (0-5)
--- NOTE | 2023-04-04 12:44 | MHC.PT.DC ---
[facility] [place] Office [place] Office [place] Office [address] Dianne Arthur 140 [facility] [phone] F: [phone] F: [phone] F: [phone] F: [phone] Physical Therapy Discharge Report Diagnosis: PAIN IN L SHOULDER Date of Surgery: NA Date of Evaluation: 02/28/23 Date of Discharge: 04/04/23 Treatments to Date: 7 Cancellations to Date: No Shows to Date: Discharge Status: Achieved Goals Improved Function Independent with HEP Discharge Summary: HAS MET MOST PT GOALS, LESS PAIN, GOOD PERF HEP Electronically signed by: CJ MONTOYA PT Please sign and return to therapist. Thank you for your referral.
== END 2023-04-04 12:45 | disposition home or self-care (01) ==
LOC: HO.PT 10:00
PROVIDERS: PCP Nurse Practitioner Family; Visit Provider Nurse Practitioner Family
DX: M25.512 Pain in left shoulder (principal)
CPT/HCPCS: 81001; 87086; 88112; 97110; 97140; 97161; 97535

== ENCOUNTER 2023-08-01 09:35 | Outpatient (AMB) | payer MEDICARE, MEDICAID, SELFPAY ==
--- NOTE | 2023-08-01 09:37 | MHC.PC.OV ---
Vital Signs 08/01/23 09:40 Height 5 ft 9 in Weight 212 lb BMI 31.3 BP 112/74 Blood Pressure Location Rt brachial Position Sitting Pulse 58 Pulse Source Pulse Oximeter Pulse Oximetry (%) 97 Oxygen Delivery Method Room Air Intake Visit Reasons: 4 month Follow up Intake Note: Patient here for follow up Allergies meperidine [Demerol] Allergy (Unknown, Verified 08/01/23 09:41) Nausea and Vomiting ivp dye Allergy (Unknown, Uncoded 08/01/23 09:41) redness and itching Tobacco use date assessed: 03/29/23 HPI 4 month Follow up HPI Details HTN: Blood pressure is stable, managed with amlodipine 2.5mg bid, isosorbide mononitrate 30mg, losartan 25mg, and metoprolol 200mg. Denies chest pain, shortness of breath, headache, dizziness, and blurred vision. Micro hem noted previously. He denies any visible hematuria. Cytology in the past was negative. Will order UA and CT urogram. Will also refer to urology. Hx of proteinuria, on a ARB. Will refer to nephrology. [facility] Medical History (Updated 08/01/23 @ 10:02 by JACLYN Paolmo) Thoracic aortic aneurysm Ischemic cardiomyopathy Dilated cardiomyopathy ICD (implantable cardioverter-defibrillator) in place History of blood transfusion GERD (gastroesophageal reflux disease) Hx of decubitus ulcer Renal artery stenosis Ischemic cardiomyopathy with implantable cardioverter-defibrillator (ICD) Paroxysmal ventricular tachycardia Peripheral arterial disease On beta cole at home Elevated cholesterol PVD (peripheral vascular disease) Myocardial infarction CAD (coronary artery disease) Angina pectoris HTN (hypertension) Surgical History Hx of endoscopy H/O cardiac catheterization History of heart artery stent History of renal stent Hx of uoesr-snzbf-kwwunwl bypass Hx of colonoscopy Hx of CABG Family History Father History of cancer Mother History of cancer Brother Substance use disorder Family/Other Substance use disorder Social History Housing: House Do you presently have visiting nurse or other home services: No Alcohol intake: never Patient Tobacco Use Status: Former Tobacco user Years Smoked: 35 years ago e-Cigarette/Vaping Use: Never Used Second Hand Smoke Exposure: No service: No Current occupational status: retired Cognitive needs: No Hearing needs: No Vision needs: Yes Questionnaire Thrive Questionnaire Date Thrive assessed: 01/05/23 ASMMIE-7 AMB Questionnaire SAMMIE-7 Date SAMMIE - 7 assessed: 01/05/23 Source: Developed by Drs. Torsten Schroeder, Ayaka Cam, Christopher Hinton and colleagues, with an educational neal from [employer]. Review of Systems Const Reports as per HPI Physical exam (Primary Care) Vital Signs: Last Vital Signs Pulse 58 08/01/23 09:40 BP 112/74 08/01/23 09:40 Pulse Ox 97 08/01/23 09:40 Oxygen Delivery Method Room Air 08/01/23 09:40 BMI result Body Mass Index 31.3 Tobacco/Smoking Status: Tobacco use Status Tobacco use date assessed 03/29/23 08/01/23 09:43 Patient Tobacco Use Status Former Tobacco user 08/01/23 09:43 e-Cigarette/Vaping Use Never Used 08/01/23 09:43 Thrive Assessment: Date of Thrive Assessment Date Thrive assessed 01/05/23 08/01/23 09:43 Const General: cooperative Nutritional Appearance: obese Orientation/consciousness: patient oriented x3 Resp Effort & Inspection: normal respiratory effort Auscultation: clear to auscultation bilaterally Cardio Rate: regular rate Rhythm: regular rhythm Heart sounds: S1 normal heart sound present and S2 normal heart sound present Neuro General: patient oriented x3 Extrem Right lower extremity: edema (trace) Left lower extremity: edema (trace) Psych Appearance: grossly normal Mental Status: mental status grossly normal Speech and movement: Normal speech and movement present Affect: normal affect Attitude: cooperative Thought process: Normal thought process present Thought content: Normal thought content present Insight: Good insight present (Psych) Judgement: Good judgement present (Psych) Assessment and Plan Assessment & Plan (1) HTN (hypertension): Code(s): I10 - Essential (primary) hypertension (2) Microscopic hematuria: Code(s): R31.29 - Other microscopic hematuria (3) Protein in urine: Code(s): R80.9 - Proteinuria, unspecified Plan The patient agreed to the use of a medical coding auditor for this encounter. Scribed for Yifan Delcid, [employer]- by Juliana Harden, medical coding auditor, on 08/01/2023 at 09:55 EST. Orders: Orders Complete Blood Count Auto Diff Today I10 - Essential (primary) hypertension TSH reflex Free T4 Today I10 - Essential (primary) hypertension Comprehensive [place]. Panel Fast Today I10 - Essential (primary) hypertension UA CC w/rflx Micro + Cult Today I10 - Essential (primary) hypertension Lipid Panel Today I10 - Essential (primary) hypertension CT urogram Today R31.29 - Other microscopic hematuria Referrals Urology Referral R31.29 - Other microscopic hematuria Nephrology Referral R80.9 - Proteinuria, unspecified Coding Level of Care Code Est Pt Level 3 (82297) Diagnoses HTN (hypertension) I10 Microscopic hematuria R31.29 Protein in urine R80.9
[2023-08-01 09:40] VITALS: BP 112/74; PULSE 58; O2SAT 97; BMI 31.3
== END 2023-08-01 10:05 | disposition home or self-care (01) ==
PROVIDERS: PCP Nurse Practitioner Family; Visit Provider Nurse Practitioner Family
DX: I10 Essential (primary) hypertension (principal); R31.29 Other microscopic hematuria; R80.9 Proteinuria, unspecified
CPT/HCPCS: 99213

== ENCOUNTER 2023-08-24 10:41 | Outpatient (AMB) | payer MEDICARE, MEDICAID, SELFPAY ==
--- NOTE | 2023-08-24 11:05 | HO.NEPHOV_ITS ---
HPI HPI Comments History of Present Illness Details 72 yr old man with a h/o significant PVD and CAD with HTN was found to have proteinuria by dipstick Initially he had trace hematuria. Repeat UA did not show hematuria. NO RBCs were seem REferred for evaluation of protinuria Also has an appoinment with Urology and IVP has been ordered OF note, he has severe PVD. Being managed in [place] h/o ODELL - attempted stenting few years ago and was complicated by severe hemorrhage and acute PR At present, BP is well controlled. Renal function has been stable. [facility] Medical History (Updated 08/24/23 @ 11:33 by Darron Hyde MD) Thoracic aortic aneurysm Ischemic cardiomyopathy Dilated cardiomyopathy ICD (implantable cardioverter-defibrillator) in place History of blood transfusion GERD (gastroesophageal reflux disease) Hx of decubitus ulcer Renal artery stenosis Ischemic cardiomyopathy with implantable cardioverter-defibrillator (ICD) Paroxysmal ventricular tachycardia Peripheral arterial disease On beta cole at home Elevated cholesterol PVD (peripheral vascular disease) Myocardial infarction CAD (coronary artery disease) Angina pectoris HTN (hypertension) Surgical History Hx of endoscopy H/O cardiac catheterization History of heart artery stent History of renal stent Hx of nmrqb-vmoas-eaqnfuh bypass Hx of colonoscopy Hx of CABG Family History Father History of cancer Mother History of cancer Brother Substance use disorder Family/Other Substance use disorder Social History Housing: House Do you presently have visiting nurse or other home services: No Alcohol intake: never Patient Tobacco Use Status: Former Tobacco user Years Smoked: 35 years ago e-Cigarette/Vaping Use: Never Used Second Hand Smoke Exposure: No service: No Current occupational status: retired Cognitive needs: No Hearing needs: No Vision needs: Yes Vital Signs 08/24/23 11:06 Height 5 ft 9 in Weight 216 lb 4 oz BMI 31.9 BP 102/60 Blood Pressure Location Rt brachial Position Sitting Pulse 57 Pulse Source Pulse Oximeter Pulse Oximetry (%) 98 Oxygen Delivery Method Room Air Physical Exam Vital Signs: Last Vital Signs Pulse 57 08/24/23 11:06 BP 102/60 08/24/23 11:06 Pulse Ox 98 08/24/23 11:06 Oxygen Delivery Method Room Air 08/24/23 11:06 BMI result Body Mass Index 31.9 In a wheelchair Const General: comfortable Nutritional Appearance: well nourished Orientation/consciousness: patient oriented x3 HEENT Head: No normal to inspection Mouth: moist mucous membranes Neck Neck: Yes supple and Yes no JVD Resp Auscultation: clear to auscultation bilaterally, no rales and rub present Cardio Jugular venous distension: no JVD Palpation: no palpable S3 and no palpable S4 Heart sounds: no rubs GI Palpation (GI): Soft to palpation and nontender Percussion: No Fluid wave present General: Yes no CVA tenderness Back/Spine/Pelvis Back: no CVA tenderness Skin General skin exam: no rashes or lesions noted Neuro General: patient oriented x3 Extrem General: Yes no pedal edema and No clubbing Assessment & Plan Assessment & Plan (1) Protein in urine: Code(s): R80.9 - Proteinuria, unspecified Plan: Will quantify proteinuria Most likely due to underlying hypertensive disease GN or AiN are unlikely NO significant hematuria Will quantify proteinuria Keep Losartan for renal protection Renal sonogram Will hold off on IVP for now Further work up based on baseline investigations (2) HTN (hypertension): Code(s): I10 - Essential (primary) hypertension Plan: BP is well controlled. No change in meds Low salt diet (3) PAD (peripheral artery disease): Code(s): I73.9 - Peripheral vascular disease, unspecified Plan: Continue follow up with Vascular surgeon (4) Renal artery stenosis: Comment: renal stent x 2 Code(s): I70.1 - Atherosclerosis of renal artery Plan: At present, BP is well controlled and renal function is stable Would continue conservative medical management Check renal sonogram for renal sizes and echogenicity (5) Ischemic cardiomyopathy with implantable cardioverter-defibrillator (ICD): Comment: [employer] VVI ICD Model 1411- Implanted 2016 Code(s): I25.5 - Ischemic cardiomyopathy; Z95.810 - Presence of automatic (implantable) cardiac defibrillator Plan: Continue close follow up with Cardiology Orders: Orders Blood Urea Nitrogen Today I10 - Essential (primary) hypertension, R80.9 - Proteinuria, unspecified Sodium Urine Random Today I10 - Essential (primary) hypertension, R80.9 - Proteinuria, unspecified UA and rflx microscopic Today I10 - Essential (primary) hypertension, R80.9 - Proteinuria, unspecified Creatinine Urine Today I10 - Essential (primary) hypertension, R80.9 - Prot einuria, unspecified Complete Blood Count no Diff Today I10 - Essential (primary) hypertension, R80.9 - Proteinuria, unspecified US renal BI Today I10 - Essential (primary) hypertension, R80.9 - Proteinuria, unspecified Electrolytes Today I10 - Essential (primary) hypertension, R80.9 - Proteinuria, unspecified Creatinine Today I10 - Essential (primary) hypertension, R80.9 - Proteinuria, unspecified Calcium Today I10 - Essential (primary) hypertension, R80.9 - Proteinuria, unspecified Total Protein Urine Random Today I10 - Essential (primary) hypertension, R80.9 - Proteinuria, unspecified Coding Level of Care Code New Pt Level 5 (36826) Diagnoses Protein in urine R80.9 HTN (hypertension) I10 PAD (peripheral artery disease) I73.9 Renal artery stenosis I70.1 Ischemic cardiomyopathy with implantable cardioverter-defibrillator (ICD) I25.5; Z95.810 Results Reviewed Nephrology Results: Hgb 13.0 g/dl (14.0-18.0) L 03/16/23 WBC 6.9 X10*3/uL (4.8-10.8) 03/16/23 Plt Count 165 X10*3/uL (160-400) 03/16/23 Sodium 140 mmol/L (135-145) 03/16/23 Potassium 4.3 mmol/L (3.3-5.1) 03/16/23 Chloride 108 mmol/L (96-108) 03/16/23 Carbon Dioxide 20 mmol/L (22-29) L 03/16/23 BUN 23 mg/dL (9-16) H 03/16/23 Creatinine 1.01 mg/dL (0.5-1.4) 03/16/23 Calcium 9.6 mg/dL (8.4-10.2) 03/16/23 Urine Protein 100 (2+) mg/dL (Neg-Trace) H 03/21/23
[2023-08-24 11:06] VITALS: BP 102/60; PULSE 57; O2SAT 98; BMI 31.9
== END 2023-08-24 11:36 | disposition home or self-care (01) ==
PROVIDERS: PCP Nurse Practitioner Family; Referring Provider Nurse Practitioner Family; Visit Provider Internal Medicine Hypertension Specialist
DX: R80.9 Proteinuria, unspecified (principal); I10 Essential (primary) hypertension; I73.9 Peripheral vascular disease, unspecified; I70.1 Atherosclerosis of renal artery; I25.5 Ischemic cardiomyopathy; Z95.810 Presence of automatic (implantable) cardiac defibrillator; Z95.828 Presence of other vascular implants and grafts
CPT/HCPCS: 99205

== ENCOUNTER → 2023-08-24 10:41 | Outpatient (BNVA) | payer MEDICARE, MEDICAID, SELFPAY | PROVIDERS: PCP Nurse Practitioner Family; Referring Provider Nurse Practitioner Family; Visit Provider Internal Medicine Hypertension Specialist | DX: R80.9 Proteinuria, unspecified (principal); I73.9 Peripheral vascular disease, unspecified; I10 Essential (primary) hypertension; I70.1 Atherosclerosis of renal artery; I25.5 Ischemic cardiomyopathy; Z95.810 Presence of automatic (implantable) cardiac defibrillator | CPT/HCPCS: 99202 ==

== ENCOUNTER 2023-09-18 10:25 | Outpatient (REF) | payer MEDICARE, MEDICAID, SELFPAY ==
[2023-09-18 19:44] LABS: Urine Cytology See Pathology rpt
== END 2023-09-18 10:26 | disposition home or self-care (01) ==
LOC: HO.LAB 10:25
PROVIDERS: PCP Nurse Practitioner Family; Visit Provider Urology
DX: R31.29 Other microscopic hematuria (principal); Z87.891 Personal history of nicotine dependence; Z79.82 Long term (current) use of aspirin
CPT/HCPCS: 81003; 88112; 99202

== ENCOUNTER 2023-09-18 10:25 | Outpatient (AMB) | payer MEDICARE, MEDICAID, SELFPAY ==
--- NOTE | 2023-09-18 10:41 | A.OFFVIS_ITS ---
Intake Intake Visit Reasons: Microscopic hematuria Intake Note: Patient presents today for a follow-up on: Meds- None Allergies to Antibiotic- No Known Allergies Blood Thinner- Aspirin Patient stated he is not having any symptoms, pain, or visible blood in the urine Safety Spec Required: No Accompanied by: Self / Same As Patient Allergies meperidine [Demerol] Allergy (Unknown, Verified 09/18/23 10:43) Nausea and Vomiting ivp dye Allergy (Unknown, Uncoded 09/18/23 10:43) redness and itching Medication List - Last Reconciled 09/18/23 by Sharita Powell MD acetaminophen 500 mg PO Q6H PRN amlodipine 2.5 mg PO BID aspirin 81 mg PO DAILY clopidogrel 1 tab PO DAILY ezetimibe 1 tab PO DAILY isosorbide mononitrate ER 1 tab PO DAILY losartan 50 mg PO metoprolol succinate ER 200 mg PO DAILY nitroglycerin 0.4 mg sublingual omega-3 fatty acids 2,000 mg (2 x 1,000 mg) PO BID 90 days omeprazole 20 mg PO DAILY 90 days rosuvastatin 1 tab PO BEDTIME HPI HPI Comments History of Present Illness Details John is a 72-year-old male who is here for evaluation for microscopic hematuria. Past Medical history - significant peripheral vascular disease, history of CABG, history of thoracic abdominal aortic aneurysm. He is on Plavix blood thinner. He states he gets lower extremity pain from walking and uses a wheelchair to get around when outside of his home. The patient denies irritative voiding symptoms, denies gross hematuria, he has history of nicotine use. I have reviewed chart, PSA 03/16/2023--0.69. I have discussed avoiding dietary bladder irritants, including caffeine usage, he states that he drinks a lot of water daily. I have discussed reasons for blood in the urine may include but are not limited to kidney stones, cancer in the urinary tract, kidney stone disease or inflammatory conditions of the urinary tract, BPH. I have discussed workup to include evaluation of the upper tracts and cystoscopy evaluation. UA--leukocytes negative, protein 3+, Plan: The patient has seen nephrology for proteinuria and has renal ultrasound pending for October 03, 2023. Schedule Office cystoscopy, urine for cytology [facility] Medical History Thoracic aortic aneurysm Ischemic cardiomyopathy Dilated cardiomyopathy ICD (implantable cardioverter-defibrillator) in place History of blood transfusion GERD (gastroesophageal reflux disease) Hx of decubitus ulcer Renal artery stenosis Ischemic cardiomyopathy with implantable cardioverter-defibrillator (ICD) Paroxysmal ventricular tachycardia Peripheral arterial disease On beta cole at home Elevated cholesterol PVD (peripheral vascular disease) Myocardial infarction CAD (coronary artery disease) Angina pectoris HTN (hypertension) Surgical History Hx of endoscopy H/O cardiac catheterization History of heart artery stent History of renal stent Hx of [id number]-[id number] bypass Hx of colonoscopy Hx of CABG Family History Father History of cancer Mother History of cancer Brother Substance use disorder Family/Other Substance use disorder Social History Housing: House Do you presently have visiting nurse or other home services: No Alcohol intake: never Patient Tobacco Use Status: Former Tobacco user Years Smoked: 35 years ago e-Cigarette/Vaping Use: Never Used Second Hand Smoke Exposure: No service: No Current occupational status: retired Cognitive needs: No Hearing needs: No Vision needs: Yes Review of Systems Const All systems reviewed & are unremarkable except as noted in HPI and below Reports no additional complaints Eyes Reports no additional complaints ENT Reports no additional complaints Card Denies dyspnea Resp Denies cough and Denies dyspnea GI Reports no additional complaints Musc Reports no additional complaints Skin/Breast Denies rash and Denies unusual bruising Neuro Reports no additional complaints Psych Reports no additional complaints Endo Reports no additional complaints Gianfranco/Lymph Reports no additional complaints Aller/Immun Reports no additional complaints Physical Exam Const General: healthy appearing, no acute distress and well developed Orientation/consciousness: patient oriented x3 HEENT Head: Yes normocephalic and Yes atraumatic Eyes Conjunctivae: conjunctivae normal Neck Neck: Yes normal visual inspection Chest Chest palpation & inspection: normal inspection of the chest Resp Effort & Inspection: normal respiratory effort Cardio Rate: regular rate GI Inspection: Yes normal to inspection Skin General skin exam: no rashes or lesions noted Neuro General: patient oriented x3 Extrem General: No pedal edema Psych Appearance: grossly normal Affect: normal affect Results AMB Urinalysis, Automated UA Leukoctes 0 A[place]/uL Last Edit by Kelle Shahblake Shah [facility] on 09/18/23 10 :46 UA Nitrite Negative [facility] on 09/18/23 10: 46 UA Urobilinogen 1 mg/dL [facility] on 09/18/23 10:46 UA Protein 300 mg/dL Last Edit by Kelle Shah Shah, [facility] on 09/18/23 10: 46 UA pH 6.0 Last [facility], [facility] on 09/18/23 10:46 UA Blood 0 [place]/uL Last Edit by Kelle Shah Shah, [facility] on 09/18/23 10:46 UA Specific [place] 1.030 Last [facility], [facility] on 10:46 UA Ketone Negative Last Edit by Kelle Shah Shah, [facility] on 09/18/23 10:4 6 UA Bilirubin 1 mg/dL Last [facility] on 09/18/23 10: 46 UA Glucose 0 mg/dL Last Edit [facility], [facility] on 09/18/23 10:46 Results Reviewed Results Reviewed: Laboratory Last Values Urine pH (Auto) 6.0 09/18/23 10:44 Specific [place] (Auto) 1.030 09/18/23 10:44 Urine Protein (Auto) 300 mg/dL 09/18/23 10:44 Glucose (UA)(Auto) 0 mg/dL 09/18/23 10:44 Urine Ketones (Auto) Negative 09/18/23 10:44 Urine Blood (Auto) 0 [place]/uL 09/18/23 10:44 Urine Nitrite (Auto) Negative 09/18/23 10:44 Urine Bilirubin (Auto) 1 mg/dL 09/18/23 10:44 Urine Urobilinogen (Auto) 1 mg/dL 09/18/23 10:44 Leukocyte Esterase (Auto) 0 A[place]ley/uL 09/18/23 10:44 Assessment & Plan Assessment & Plan (1) Microscopic hematuria: Code(s): R31.29 - Other microscopic hematuria (2) History of nicotine use: Code(s): Z87.891 - Personal history of nicotine dependence Plan Office cystoscopy. Urine for cytology Orders: Orders AMB Urinalysis Automated Today R33.9 - Retention of urine, unspecified Patient Instructions: The patient had an opportunity to ask questions regarding treatment plan. All questions were answered. Laboratory studies and physical exam results were discussed and reviewed in detail. No major barriers to understanding were identified. The patient expressed understanding and agreement with the above treatment plan. The patient is aware they should contact our office by phone for worsening of their current condition or the appearance of new symptoms. Compliance is encouraged with any medications and followup testing that is ordered. It is a privilege to be allowed the opportunity to participate in the urologic care of your patient. If you have any questions or concerns regarding treatment for the above conditions please do not hesitate to contact me. The office telephone contact is [phone]. This note is constructed in part using voice recognition software. While every effort has been made to ensure accuracy personal computer network analyst errors may have been included. Yours sincerely, Sharita Powell MD Coding Level of Care Code New Pt Level 4 (39444) Diagnoses Microscopic hematuria R31.29 History of nicotine use Z87.891
== END 2023-09-18 11:15 | disposition home or self-care (01) ==
PROVIDERS: PCP Nurse Practitioner Family; Visit Provider Urology
DX: R31.29 Other microscopic hematuria (principal); Z87.891 Personal history of nicotine dependence; R33.9 Retention of urine, unspecified
CPT/HCPCS: 99204

== ENCOUNTER 2023-09-25 10:51 | Outpatient (AMB) | payer MEDICARE, MEDICAID, SELFPAY ==
[2023-09-25 11:04] VITALS: BP 150/60; PULSE 49; O2SAT 96; BMI 31.5
--- NOTE | 2023-09-25 11:04 | HO.NEPHOV_ITS ---
HPI HPI Comments History of Present Illness Details 72 yr old man with a h/o significant PVD and CAD with HTN was found to have proteinuria by dipstick Initially he had trace hematuria. Repeat UA did not show hematuria. NO RBCs were seem REferred for evaluation of protinuria Also has an appoinment with Urology and IVP has been ordered OF note, he has severe PVD. Being managed in [place] h/o ODELL - attempted stenting few years ago and was complicated by severe hemorrhage and acute IN At present, BP is well controlled. Renal function has been stable. [facility] Medical History Thoracic aortic aneurysm Ischemic cardiomyopathy Dilated cardiomyopathy ICD (implantable cardioverter-defibrillator) in place History of blood transfusion GERD (gastroesophageal reflux disease) Hx of decubitus ulcer Renal artery stenosis Ischemic cardiomyopathy with implantable cardioverter-defibrillator (ICD) Paroxysmal ventricular tachycardia Peripheral arterial disease On beta cole at home Elevated cholesterol PVD (peripheral vascular disease) Myocardial infarction CAD (coronary artery disease) Angina pectoris HTN (hypertension) Surgical History Hx of endoscopy H/O cardiac catheterization History of heart artery stent History of renal stent Hx of [id number]-epmogde bypass Hx of colonoscopy Hx of CABG Family History Father History of cancer Mother History of cancer Brother Substance use disorder Family/Other Substance use disorder Social History Housing: House Do you presently have visiting nurse or other home services: No Alcohol intake: never Patient Tobacco Use Status: Former Tobacco user Years Smoked: 35 years ago e-Cigarette/Vaping Use: Never Used Second Hand Smoke Exposure: No service: No Current occupational status: retired Cognitive needs: No Hearing needs: No Vision needs: Yes Vital Signs 09/25/23 11:04 Height 5 ft 9 in Weight 213 lb BMI 31.5 BP 150/60 H Blood Pressure Location Lt brachial Position Sitting Pulse 49 L Pulse Source Pulse Oximeter Pulse Oximetry (%) 96 Oxygen Delivery Method Room Air Physical Exam Vital Signs: Last Vital Signs Pulse 49 L 09/25/23 11:04 BP 150/60 H 09/25/23 11:04 Pulse Ox 96 09/25/23 11:04 Oxygen Delivery Method Room Air 09/25/23 11:04 BMI result Body Mass Index 31.5 In a wheelchair Const General: comfortable Nutritional Appearance: well nourished Orientation/consciousness: patient oriented x3 HEENT Head: No normal to inspection Mouth: moist mucous membranes Neck Neck: Yes supple and Yes no JVD Resp Auscultation: clear to auscultation bilaterally, no rales and rub present Cardio Jugular venous distension: no JVD Palpation: no palpable S3 and no palpable S4 Heart sounds: no rubs GI Palpation (GI): Soft to palpation and nontender Percussion: No Fluid wave present General: Yes no CVA tenderness Back/Spine/Pelvis Back: no CVA tenderness Skin General skin exam: no rashes or lesions noted Neuro General: patient oriented x3 Extrem General: Yes no pedal edema and No clubbing Assessment & Plan Assessment & Plan (1) Protein in urine: Code(s): R80.9 - Proteinuria, unspecified Plan: Will quantify proteinuria Most likely due to underlying hypertensive disease GN or AiN are unlikely NO significant hematuria Will quantify proteinuria Keep Losartan for renal protection Renal sonogram Will hold off on IVP for now Further work up based on baseline investigations (2) HTN (hypertension): Code(s): I10 - Essential (primary) hypertension Plan: BP is well controlled. No change in meds Low salt diet (3) PAD (peripheral artery disease): Code(s): I73.9 - Peripheral vascular disease, unspecified Plan: Continue follow up with Vascular surgeon (4) Renal artery stenosis: Comment: renal stent x 2 Code(s): I70.1 - Atherosclerosis of renal artery Plan: At present, BP is well controlled and renal function is stable Would continue conservative medical management Check renal sonogram for renal sizes and echogenicity (5) Ischemic cardiomyopathy with implantable cardioverter-defibrillator (ICD): Comment: [employer] VVI ICD Model 1411- Implanted 2015 Code(s): I25.5 - Ischemic cardiomyopathy; Z95.810 - Presence of automatic (implantable) cardiac defibrillator Plan: Continue close follow up with Cardiology Plan Work up in progress Await renal sonogram/Doppler Await office cystoscopy by Orders: Orders Basic Metabolic Panel 3 Months I10 - Essential (primary) hypertension, R80.9 - Proteinuria, unspecified Creatinine Urine 3 Months I10 - Essential (primary) hypertension, R80.9 - Proteinuria, unspecified Total Protein Urine Random 3 Months I10 - Essential (primary) hypertension, R80.9 - Proteinuria, unspecified Coding Level of Care Code Est Pt Level 4 (88594) Diagnoses Protein in urine R80.9 HTN (hypertension) I10 PAD (peripheral artery disease) I73.9 Renal artery stenosis I70.1 Ischemic cardiomyopathy with implantable cardioverter-defibrillator (ICD) I25.5; Z95.810 Results Reviewed Nephrology Results: Hgb 13.0 g/dl (14.0-18.0) L 03/16/23 WBC 6.9 X10*3/uL (4.8-10.8) 03/16/23 Plt Count 165 X10*3/uL (160-400) 03/16/23 Sodium 140 mmol/L (135-145) 03/16/23 Potassium 4.3 mmol/L (3.3-5.1) 03/16/23 Chloride 108 mmol/L (96-108) 03/16/23 Carbon Dioxide 20 mmol/L (22-29) L 03/16/23 BUN 23 mg/dL (9-16) H 03/16/23 Creatinine 1.01 mg/dL (0.5-1.4) 03/16/23 Calcium 9.6 mg/dL (8.4-10.2) 03/16/23 Urine Protein 100 (2+) mg/dL (Neg-Trace) H 03/21/23
== END 2023-09-25 11:15 | disposition home or self-care (01) ==
PROVIDERS: PCP Nurse Practitioner Family; Visit Provider Internal Medicine Hypertension Specialist
DX: R80.9 Proteinuria, unspecified (principal); I10 Essential (primary) hypertension; I73.9 Peripheral vascular disease, unspecified; I70.1 Atherosclerosis of renal artery; I25.5 Ischemic cardiomyopathy; Z95.810 Presence of automatic (implantable) cardiac defibrillator
CPT/HCPCS: 99214

== ENCOUNTER → 2023-09-25 10:51 | Outpatient (BNVA) | payer MEDICARE, MEDICAID, SELFPAY | PROVIDERS: PCP Nurse Practitioner Family; Visit Provider Internal Medicine Hypertension Specialist | DX: R80.9 Proteinuria, unspecified (principal); I10 Essential (primary) hypertension; I73.9 Peripheral vascular disease, unspecified; I70.1 Atherosclerosis of renal artery; I25.5 Ischemic cardiomyopathy; Z95.810 Presence of automatic (implantable) cardiac defibrillator | CPT/HCPCS: 99212 ==

== ENCOUNTER 2023-10-03 08:14 | Outpatient (REF) | payer MEDICARE, MEDICAID, SELFPAY ==
--- NOTE | ~2023-10-03 | US_ITS ---
EXAMINATION: US RETROPERITONEAL LIMITED (RENAL ONLY) CLINICAL INFORMATION: Proteinuria, unspecified. COMPARISON: None available. TECHNIQUE: Real-time imaging of the kidneys. Limited visualization due to bowel gas. FINDINGS: RIGHT KIDNEY: 9.6 x 4.1 x 5.2 cm (SAG x AP x TRV). Multiple renal cysts, largest midpole 1.9 x 1.2 x 1.7 cm is complex with moderately thickened septations. Midpole 1.2 x 1.4 x 1.3 cm simple cyst. Koo-ky-wrafh pole 1.1 x 1.2 x 0.8 cm simple cyst. No hydronephrosis. No renal calculi. Limited visualization. LEFT KIDNEY: 12.3 x 6.8 x 6.5 cm (SAG x AP x TRV). No hydronephrosis. No renal calculi. Limited visualization. Multiple renal cysts, largest midpole exophytic 5.9 x 5.5 x 6.3 cm is complex with thick internal septations and internal echoes. US/US renal BI IMPRESSION: Bilateral renal cysts, largest left 6.3 cm and right 1.9 cm are moderately complex. CT scan with intravenous contrast employing renal mass protocol recommended.
== END 2023-10-03 08:15 | disposition home or self-care (01) ==
LOC: HO.US 08:14
PROVIDERS: PCP Nurse Practitioner Family; Visit Provider Internal Medicine Hypertension Specialist
DX: R80.9 Proteinuria, unspecified (principal); I10 Essential (primary) hypertension
CPT/HCPCS: 76775

== ENCOUNTER 2023-10-30 08:23 | Outpatient (AMB) | payer MEDICARE, MEDICAID, SELFPAY ==
--- NOTE | 2023-10-30 08:43 | MHC.OFFVIS ---
Intake Intake Visit Reasons: 5w/US Intake Note: Patient presents today for a follow-up on US Meds- None Allergies to Antibiotic- No Known Allergies Blood Thinner- Aspirin Patient having Cysto today per Dr. Pollard Urinalysis test clear for Cysto? Yes Disposable Uro-G Cystoscope Cannula: Lot: [id number] Exp: 06/08/2026 Mail Courier Required: No Accompanied by: Self / Same As Patient Allergies meperidine [Demerol] Allergy (Unknown, Verified 10/30/23 08:45) Nausea and Vomiting ivp dye Allergy (Unknown, Uncoded 10/30/23 08:45) redness and itching Medication List - Last Reconciled 10/30/23 by Sharita Powell MD acetaminophen 500 mg PO Q6H PRN amlodipine 2.5 mg PO BID aspirin 81 mg PO DAILY clopidogrel 1 tab PO DAILY ezetimibe 1 tab PO DAILY isosorbide mononitrate ER 1 tab PO DAILY losartan 50 mg PO metoprolol succinate ER 200 mg PO DAILY nitroglycerin 0.4 mg sublingual omega-3 fatty acids 2,000 mg (2 x 1,000 mg) PO BID 90 days omeprazole 20 mg PO DAILY 90 days rosuvastatin 1 tab PO BEDTIME HPI HPI Comments History of Present Illness Details 10/30/2023--John is a 73-year-old male who has been evaluated for microscopic hematuria. He is here in follow-up. I have reviewed recent renal ultrasound dated 10/03/23, notable for bilateral renal cysts simple and complex. He is also followed by Nephrology. I have discussed CT abd/ renal mass protocol for follow up in 6 months Office Cysto today- findings: no suspicious bladder lesions, bilobar enlargement of prostate with bladder wall thickening. I have discussed to start an alpha cole, tamsulosin 0.4 mg daily. Review of chart: 09/18/23--John is a 72-year-old male who is here for evaluation for microscopic hematuria. Past Medical history - significant peripheral vascular disease, history of CABG, history of thoracic abdominal aortic aneurysm. He is on Plavix blood thinner. He states he gets lower extremity pain from walking and uses a wheelchair to get around when outside of his home. The patient denies irritative voiding symptoms, denies gross hematuria, he has history of nicotine use. I have reviewed chart, PSA 03/16/2023--0.69. I have discussed avoiding dietary bladder irritants, including caffeine usage, he states that he drinks a lot of water daily. I have discussed reasons for blood in the urine may include but are not limited to kidney stones, cancer in the urinary tract, kidney stone disease or inflammatory conditions of the urinary tract, BPH. I have discussed workup to include evaluation of the upper tracts and cystoscopy evaluation. UA--leukocytes negative, protein 3+, Plan: The patient has seen nephrology for proteinuria and has renal ultrasound pending for October 03, 2023. Schedule Office cystoscopy, urine for cytology 10/30/23--PLAN: tamsulosin 0.4 mg daily in the evening CT abd w/wo IV contrast in 6 months PFSH Medical History Thoracic aortic aneurysm Ischemic cardiomyopathy Dilated cardiomyopathy ICD (implantable cardioverter-defibrillator) in place History of blood transfusion GERD (gastroesophageal reflux disease) Hx of decubitus ulcer Renal artery stenosis Ischemic cardiomyopathy with implantable cardioverter-defibrillator (ICD) Paroxysmal ventricular tachycardia Peripheral arterial disease On beta cole at home Elevated cholesterol PVD (peripheral vascular disease) Myocardial infarction CAD (coronary artery disease) Angina pectoris HTN (hypertension) Surgical History Hx of endoscopy H/O cardiac catheterization History of heart artery stent History of renal stent Hx of bbbly-qnqnj-rbuhbvq bypass Hx of colonoscopy Hx of CABG Family History Father History of cancer Mother History of cancer Brother Substance use disorder Family/Other Substance use disorder Social History Housing: House Do you presently have visiting nurse or other home services: No Alcohol intake: never Patient Tobacco Use Status: Former Tobacco user Years Smoked: 35 years ago e-Cigarette/Vaping Use: Never Used Second Hand Smoke Exposure: No service: No Current occupational status: retired Cognitive needs: No Hearing needs: No Vision needs: Yes Review of Systems Const All systems reviewed & are unremarkable except as noted in HPI and below Reports no additional complaints Eyes Reports no additional complaints ENT Reports no additional complaints Card Denies dyspnea Resp Denies cough and Denies dyspnea GI Reports no additional complaints Musc Reports no additional complaints Skin/Breast Denies rash Neuro Reports no additional complaints Psych Reports no additional complaints Endo Reports no additional complaints Gianfranco/Lymph Reports no additional complaints Aller/Immun Reports no additional complaints Office Procedures Cystoscopy Consent Discussed risk and benefit or proposed procedure with the patient. Information consent for procedure given to the patient. Discussed technical aspects, risks, benefits and alternatives in full. Addressed all of the patient's questions and concerns regarding the procedure. The patient demonstrated knowledge and understanding. They wish to proceed with this procedure. Preparation The patient was prepped in the usual manner. A childcare teacher was present and in the room. Genitalia was prepped with betadine solution in a sterile manner. Lidocaine Jelly 2% was placed into the urethra and 16Fr flexible Olympus cystoscope was inserted into the meatus after adequate lubrication. Procedure Time out per protocol performed. Bladder Inspection Bladder Inspection: The bladder was inspected in its entirety with utilization retroflexion displaying: Tumor(s): none visualized Trabeculation: moderate Mucosal Erthema: N/A Orifices: normal shape and position Urethra: normal Cystoscopy findings: prostatic urethra -bilobar enlargement of prostate, bulbous urethra WNL, no suspicious bladder lesions visualized [id number] DISPOSABLE SCOPE URO-G FLEXIBLE SCOPE Procedure code (CPT) selection complete Office Meds lidocaine HCl 2 % mucosal jelly in applicator Performing Provider: Sharita Powell MD [place] [facility] [place] [facility] Administered by: Javid Mortensen LPN on 10/30/23 09:24 Dose Route Admin Location Dispensed Lot Number Expiration Date ND Fiberline Supervisor 20 mL intra-urethral 20 mL naproxen 500 mg tablet Performing Provider: Sharita Powell MD [place] [facility] [place] [facility] Administered by: Javid Mortensen LPN on 10/30/23 09:24 Dose Route Admin Location Dispensed Lot Number Expiration Date NDC Fiberline Supervisor 500 mg PO 1 tab ciprofloxacin HCl 500 mg tablet Performing Provider: Sharita Powell MD [place] [facility] [place] [facility] Administered by: Javid Mortensen LPN on 10/30/23 09:24 Dose Route Admin Location Dispensed Lot Number Expiration Date NDC Fiberline Supervisor 500 mg PO 1 tab Results AMB Urinalysis, Automated UA Leukoctes 0 Ainsley/uL Last Edit by Kelle Shah [facility] on 10/30/23 08:48 UA Nitrite Negative Last Edit by Kelle Shah, [facility] on 10/30/23 08:48 UA Urobilinogen 0.2 mg/dL Last Edit by Kelle Shah [facility] on 10/30/23 08:48 UA Protein 300 mg/dL Last Edit by Kelle Shah, [facility] on 10/30/23 08:48 UA pH 6.0 Last Edit by Kelle Shahblake Shah, [facility] on 10/30/23 08:48 UA Blood 25 [place]/uL Last Edit by Kelle Shah, [facility] on 10/30/23 08:48 UA Specific [place] 1.025 Last Edit by Kelle Shah, [facility] on 10/30/23 08:48 UA Ketone Negative Last Edit by Kelle Shahblake Shah, [facility] on 10/30/23 08:48 UA Bilirubin 0 mg/dL Last Edit by Kelle Shahblake Shah [facility] on 10/30/23 08:48 UA Glucose 0 mg/dL Last Edit by Kelle Shahblake Shah [facility] on 10/30/23 08:48 Results Reviewed Results Reviewed: Laboratory Last Values Urine pH (Auto) 6.0 10/30/23 08:46 Specific [place] (Auto) 1.025 10/30/23 08:46 Urine Protein (Auto) 300 mg/dL 10/30/23 08:46 Glucose (UA)(Auto) 0 mg/dL 10/30/23 08:46 Urine Ketones (Auto) Negative 10/30/23 08:46 Urine Blood (Auto) 25 [place]/uL 10/30/23 08:46 Urine Nitrite (Auto) Negative 10/30/23 08:46 Urine Bilirubin (Auto) 0 mg/dL 10/30/23 08:46 Urine Urobilinogen (Auto) 0.2 mg/dL 10/30/23 08:46 Leukocyte Esterase (Auto) 0 Ainsley/uL 10/30/23 08:46 Date of Service: 10/03/23 EXAMINATION: US RETROPERITONEAL LIMITED (RENAL ONLY) CLINICAL INFORMATION: Proteinuria, unspecified. COMPARISON: None available. TECHNIQUE: Real-time imaging of the kidneys. Limited visualization due to bowel gas. FINDINGS: RIGHT KIDNEY: 9.6 x 4.1 x 5.2 cm (SAG x AP x TRV). Multiple renal cysts, largest midpole 1.9 x 1.2 x 1.7 cm is complex with moderately thickened septations. Midpole 1.2 x 1.4 x 1.3 cm simple cyst. Cih-kl-zlywt pole 1.1 x 1.2 x 0.8 cm simple cyst. No hydronephrosis. No renal calculi. Limited visualization. LEFT KIDNEY: 12.3 x 6.8 x 6.5 cm (SAG x AP x TRV). No hydronephrosis. No renal calculi. Limited visualization. Multiple renal cysts, largest midpole exophytic 5.9 x 5.5 x 6.3 cm is complex with thick internal septations and internal echoes. IMPRESSION: Bilateral renal cysts, largest left 6.3 cm and right 1.9 cm are moderately complex. CT scan with intravenous contrast employing renal mass protocol recommended. Assessment & Plan Assessment & Plan (1) Renal artery stenosis: Comment: renal stent x 2 Code(s): I70.1 - Atherosclerosis of renal artery (2) Complex renal cyst: Code(s): N28.1 - Cyst of kidney, acquired (3) Microscopic hematuria: Code(s): R31.29 - Other microscopic hematuria Plan tamsulosin 0.4 mg daily in the evening CT abd w/wo IV contrast in 6 months Orders: Orders AMB Urinalysis Automated Today R33.9 - Retention of urine, unspecified AMB Cystoscopy Today R31.29 - Other microscopic hematuria CT abdomen wo/w IV con 5 Months I70.1 - Atherosclerosis of renal artery, N28.1 - Cyst of kidney, acquired, R31.29 - Other microscopic hematuria Medications: New tamsulosin (Flomax) 0.4 mg PO BEDTIME 30 caps 7RF Patient Instructions: The patient had an opportunity to ask questions regarding treatment plan. All questions were answered. Imaging, Laboratory studies and physical exam results were discussed and reviewed in detail. No major barriers to understanding were identified. The patient expressed understanding and agreement with the above treatment plan. The patient is aware they should contact our office by phone for worsening of their current condition or the appearance of new symptoms. Compliance is encouraged with any medications and followup testing that is ordered. It is a privilege to be allowed the opportunity to participate in the urologic care of your patient. If you have any questions or concerns regarding treatment for the above conditions please do not hesitate to contact me. The office telephone contact is [phone]. This note is constructed in part using voice recognition software. While every effort has been made to ensure accuracy automobile brakes bonder errors may have been included. Yours sincerely, Sharita Powell MD Coding Level of Care Code Est Pt Level 4 (22760) Diagnoses Renal artery stenosis I70.1 Complex renal cyst N28.1 Microscopic hematuria R31.29 CPT Codes Cystoscopy - CPT: 30317-[id number] ([id number])
== END 2023-10-30 10:16 | disposition home or self-care (01) ==
PROVIDERS: PCP Nurse Practitioner Family; Visit Provider Urology
DX: I70.1 Atherosclerosis of renal artery (principal); N28.1 Cyst of kidney, acquired; R31.29 Other microscopic hematuria; R33.9 Retention of urine, unspecified
CPT/HCPCS: 52000; 99214

== ENCOUNTER → 2023-10-30 08:23 | Outpatient (BNVA) | payer MEDICARE, MEDICAID, SELFPAY | PROVIDERS: PCP Nurse Practitioner Family; Visit Provider Urology | DX: R31.29 Other microscopic hematuria (principal); I70.1 Atherosclerosis of renal artery; N28.1 Cyst of kidney, acquired; R33.9 Retention of urine, unspecified | CPT/HCPCS: 52000; 81003; 99212 ==

== ENCOUNTER 2023-12-26 10:22 | Outpatient (REF) | payer MEDICARE, MEDICAID, SELFPAY ==
[2023-12-26 13:16] LABS: MANUAL DIFF FLAG NO
[2023-12-26 13:22] LABS: Basophils Absolute Auto 0.1 X10*3/uL (0.0-0.2); Basophils Percent Auto 1.2 % (0-2); Eosinophils Absolute Auto 0.2 X10*3/uL (0.0-0.4); Eosinophils Percent Auto 3.2 % (0-4); Hematocrit 41.1 % (42.0-52.0); Hemoglobin 13.2 g/dl (14.0-18.0); Imm Gran Abs Auto 0.02 X10*3/uL (0.00-0.03); Imm Gran Pct Auto 0.3 % (0.0-0.4); Lymphocytes Absolute Auto 2.4 X10*3/uL (1.2-4.9); Lymphocytes Percent Auto 33.1 % (20-40); Mean Corpuscular HGB Conc 32.1 g/dl (31.0-36.0); Mean Corpuscular Hemoglobin 28.9 pg (27.0-33.0); Mean Corpuscular Volume 90.1 fL (80.0-98.0); Mean Platelet Volume 10.2 fL (9.4-12.4); Monocytes Absolute Auto 0.5 X10*3/uL (0.1-1.2); Monocytes Percent Auto 6.6 % (2-11); Neutrophils Percent Auto 55.6 % (45-73); Platelet Count 162 X10*3/uL (160-400); Red Blood Count 4.56 X10*6/uL (4.60-5.80); Red Cell Distribution Width 13.5 % (11.0-16.0); White Blood Count 7.2 X10*3/uL (4.8-10.8)
[2023-12-26 13:47] LABS: Appearance Urine Clear; Color Urine Yellow; Glucose Urine UA Negative (Negative); Leukocyte Esterase Urine Negative (Negative); Nitrite Urine Negative (Negative); PH 5.5 (5.0-9.0); Specific Gravity - Urine >= 1.030 (1.005-1.025); UMIC TRIGGER UACC YES; Urine Blood Negative (Negative); Urine Ketones Trace mg/dL (Negative); Urine Protein 300 (3+) mg/dL (Neg-Trace)
[2023-12-26 13:48] LABS: Alanine Aminotransferase 20 U/L (0-40); Albumin Level 4.2 g/dL (3.5-5.0); Alkaline Phosphatase 27 U/L (39-117); Anion Gap 16 (12-20); Aspartate Amino Transferase 21 U/L (5-37); Bilirubin Total 0.7 mg/dL (0.0-1.0); Blood Urea Nitrogen 18 mg/dL (9-16); Calcium 9.4 mg/dL (8.4-10.2); Carbon Dioxide 24 mmol/L (22-29); Chloride 106 mmol/L (96-108); Cholesterol 126 mg/dL (<200); Estimated Glomerular Filt Rate 56; Glucose Fasting 109 mg/dL (60-99); Glucose Random 109 mg/dL (60-115); HDL Cholesterol 46 mg/dL (>40); LDL Cholesterol Calculated 36 mg/dL (<100); Sodium 141 mmol/L (135-145); Total Protein 6.8 g/dL (6.5-8.0); Triglycerides 221 mg/dL (<150)
[2023-12-26 14:18] LABS: Bacteria Urine None Seen (None Seen); Hyaline Casts Urine 0-2 /LPF (0-2); RBC Urine 0-2 /HPF (0-2); Squamous Epithelial Cell Urine 0-2 /HPF (0-2); WBC Urine 0-5 /HPF (0-5)
[2023-12-26 14:19] LABS: Creatinine Urine 432.63 mg/dL
[2023-12-26 14:45] LABS: Total Protein Urine Random 392 mg/dL (<12)
[2023-12-26 20:31] LABS: TSH reflex Free T4 1.76 uIU/mL (0.32-4.0)
== END 2023-12-26 10:23 | disposition home or self-care (01) ==
LOC: HO.HMGCLDS 10:22
PROVIDERS: Internal Medicine Hypertension Specialist; Urology; PCP Nurse Practitioner Family; Visit Provider Nurse Practitioner Family
DX: R80.9 Proteinuria, unspecified (principal); I10 Essential (primary) hypertension; I70.1 Atherosclerosis of renal artery
CPT/HCPCS: 36415; 80048; 80053; 80061; 81001; 81003; 82570; 84156; 84443; 85025; 99212

== ENCOUNTER 2023-12-26 11:08 | Outpatient (AMB) | payer MEDICARE, MEDICAID, SELFPAY ==
[2023-12-26 11:09] VITALS: BP 70/54; PULSE 50; O2SAT 98; BMI 32.0
--- NOTE | 2023-12-26 11:09 | HO.NEPHOV ---
Vital Signs 12/26/23 11:09 Height 5 ft 9 in Weight 217 lb BMI 32.0 BP 70/54 L Blood Pressure Location Rt brachial Position Sitting Pulse 50 Pulse Source Pulse Oximeter Pulse Oximetry (%) 98 Oxygen Delivery Method Room Air Intake Visit Reasons: 3 MO FU/ Confirmed Lead Fabricator Required: No Accompanied by: Self / Same As Patient Allergies meperidine [Demerol] Allergy (Unknown, Verified 12/26/23 11:11) Nausea and Vomiting ivp dye Allergy (Unknown, Uncoded 10/30/23 08:45) redness and itching HPI Comments Details: 72 yr old man with a h/o significant PVD and CAD with HTN was found to have proteinuria by dipstick Initially he had trace hematuria. Repeat UA did not show hematuria. NO RBCs were seem REferred for evaluation of protinuria Also has an appoinment with Urology and IVP has been ordered OF note, he has severe PVD. Being managed in [place] h/o ODELL - attempted stenting few years ago and was complicated by severe hemorrhage and acute VA At present, BP is well controlled. Renal function has been stable. [facility] Medical History Thoracic aortic aneurysm Ischemic cardiomyopathy Dilated cardiomyopathy ICD (implantable cardioverter-defibrillator) in place History of blood transfusion GERD (gastroesophageal reflux disease) Hx of decubitus ulcer Renal artery stenosis Ischemic cardiomyopathy with implantable cardioverter-defibrillator (ICD) Paroxysmal ventricular tachycardia Peripheral arterial disease On beta cole at home Elevated cholesterol PVD (peripheral vascular disease) Myocardial infarction CAD (coronary artery disease) Angina pectoris HTN (hypertension) Surgical History Hx of endoscopy H/O cardiac catheterization History of heart artery stent History of renal stent Hx of etayt-dgdqb-ntsqiod bypass Hx of colonoscopy Hx of CABG Family History Father History of cancer Mother History of cancer Brother Substance use disorder Family/Other Substance use disorder Social History Housing: House Do you presently have visiting nurse or other home services: No Alcohol intake: never Patient Tobacco Use Status: Former Tobacco user Years Smoked: 35 years ago e-Cigarette/Vaping Use: Never Used Second Hand Smoke Exposure: No service: No Current occupational status: retired Cognitive needs: No Hearing needs: No Vision needs: Yes Physical Exam Vital Signs: Last Vital Signs Pulse 50 12/26/23 11:09 BP 70/54 L 12/26/23 11:09 Pulse Ox 98 12/26/23 11:09 Oxygen Delivery Method Room Air 12/26/23 11:09 BMI result Body Mass Index 32.0 In a wheelchair Left UE 130/60 ; With a bruit over elbow Right UE : 80/50 Const General: comfortable Nutritional Appearance: well nourished Orientation/consciousness: patient oriented x3 HEENT Head: No normal to inspection Mouth: moist mucous membranes Neck Neck: Yes supple and Yes no JVD Resp Auscultation: clear to auscultation bilaterally, no rales and rub present Cardio Jugular venous distension: no JVD Palpation: no palpable S3 and no palpable S4 Heart sounds: no rubs GI Palpation (GI): Soft to palpation and nontender Percussion: No Fluid wave present General: Yes no CVA tenderness Back/Spine/Pelvis Back: no CVA tenderness Skin General skin exam: no rashes or lesions noted Neuro General: patient oriented x3 Extrem General: Yes no pedal edema and No clubbing Results Reviewed Results Reviewed: Bilateral renal cysts, largest left 6.3 cm and right 1.9 cm are moderately complex. CT scan with intravenous contrast employing renal mass protocol recommended. Nephrology Results: Hgb 13.2 g/dl (14.0-18.0) L 12/26/23 WBC 7.2 X10*3/uL (4.8-10.8) 12/26/23 Plt Count 162 X10*3/uL (160-400) 12/26/23 Sodium 141 mmol/L (135-145) 12/26/23 Potassium 5.0 mmol/L (3.3-5.1) 12/26/23 Chloride 106 mmol/L (96-108) 12/26/23 Carbon Dioxide 24 mmol/L (22-29) 12/26/23 BUN 18 mg/dL (9-16) H 12/26/23 Creatinine 1.26 mg/dL (0.5-1.4) 12/26/23 Calcium 9.4 mg/dL (8.4-10.2) 12/26/23 Urine Protein 300 (3+) mg/dL (Neg-Trace) H 12/26/23 Urine Creatinine 432.63 mg/dL 12/26/23 Renal US 10/03/23 Assessment & Plan Assessment & Plan (1) Protein in urine: Code(s): R80.9 - Proteinuria, unspecified Category: Medical Plan: Mild CKD with proteinuria Most likely due to underlying hypertensive disease GN or AiN are unlikely NO significant hematuria proteinuria - protein creatinine ratio was 0.90. UA did not reveal any significant RBCs/hematuria. Specific gravity was more than 1.010. Keep Losartan for renal protection Renal sonogram Showed complex cyst and currently being evaluated by Urology. Waiting for cystoscopy as well (2) HTN (hypertension): Code(s): I10 - Essential (primary) hypertension Category: Medical Plan: BP is well controlled. No change in meds Low salt diet (3) PAD (peripheral artery disease): Code(s): I73.9 - Peripheral vascular disease, unspecified Category: Medical Plan: Continue follow up with Vascular surgeon (4) Renal artery stenosis: Comment: renal stent x 2 Code(s): I70.1 - Atherosclerosis of renal artery Category: Medical Plan: At present, BP is well controlled and renal function is stable Would continue conservative medical management Check renal sonogram for renal sizes and echogenicity (5) Ischemic cardiomyopathy with implantable cardioverter-defibrillator (ICD): Comment: [employer] VVI ICD Model 1411- Implanted 2015 Code(s): I25.5 - Ischemic cardiomyopathy; Z95.810 - Presence of automatic (implantable) cardiac defibrillator Category: Medical Plan: Continue close follow up with Cardiology Coding Level of Care Code Est Pt Level 4 (03738) Diagnoses Protein in urine R80.9 HTN (hypertension) I10 PAD (peripheral artery disease) I73.9 Renal artery stenosis I70.1 Ischemic cardiomyopathy with implantable cardioverter-defibrillator (ICD) I25.5; Z95.810
== END 2023-12-26 11:27 | disposition home or self-care (01) ==
PROVIDERS: PCP Nurse Practitioner Family; Visit Provider Internal Medicine Hypertension Specialist
DX: R80.9 Proteinuria, unspecified (principal); I10 Essential (primary) hypertension; I73.9 Peripheral vascular disease, unspecified; I70.1 Atherosclerosis of renal artery; I25.5 Ischemic cardiomyopathy; Z95.810 Presence of automatic (implantable) cardiac defibrillator
CPT/HCPCS: 99214

== ENCOUNTER 2024-01-01 10:11 | Outpatient (AMB) | payer MEDICARE, MEDICAID, SELFPAY ==
--- NOTE | 2024-01-01 10:14 | A.OFFPC_ITS ---
Vital Signs 01/01/24 10:16 Height 5 ft 9 in Weight 218 lb BMI 32.2 BP 130/70 Blood Pressure Location Lt brachial Position Sitting Pulse 64 Pulse Source Pulse Oximeter Pulse Oximetry (%) 97 Oxygen Delivery Method Room Air Intake Visit Reasons: 5 month fu Intake Note: Patient here for HTN f/u, he also wanted to talk about recent cardiovascular visit. Allergies meperidine [Demerol] Allergy (Unknown, Verified 01/01/24 10:53) Nausea and Vomiting ivp dye Allergy (Unknown, Uncoded 01/01/24 10:53) redness and itching Medication List - Last Reconciled 01/01/24 by Yifan Delcid, [employer]- acetaminophen 500 mg PO Q6H PRN amlodipine 2.5 mg PO BID aspirin 81 mg PO DAILY clopidogrel 1 tab PO DAILY ezetimibe 1 tab PO DAILY isosorbide mononitrate ER 1 tab PO DAILY losartan 50 mg PO DAILY metoprolol succinate ER 200 mg PO DAILY nitroglycerin 0.4 mg sublingual PRN omega-3 fatty acids 2,000 mg (2 x 1,000 mg) PO BID 90 days omeprazole 20 mg PO DAILY 90 days rosuvastatin 1 tab PO BEDTIME tamsulosin (Flomax) 0.4 mg PO BEDTIME 90 days Tobacco use date assessed: 01/01/24 Fall risk assessment: No Falls in past year Last assessed Fall Risk: 01/01/24 Dental Screening Dental Screen Date: 01/01/24 Did you have a dental visit in the last 12 months?: No Did you have a dental problem in the last 6 months where you did not have access to dental care?: No Was dental information given to patient?: Patient has dentist HPI 5 month fu HPI Details HTN: Blood pressure is stable, managed with amlodipine 2.5mg bid, isosorbide mononitrate, losartan 50mg, and metoprolol 200mg. Denies chest pain, shortness of breath, headache, dizziness, and blurred vision. Pt follows up with nephrology, urology, and cardiology. #2 Fall last week, developed swelling to his medial left elbow. Ironically, he was following up with vascular around this time, US: upper left arterial-venous fistual involving distal brachial artery and basilic vein. Possible superficial venous thrombus near a venous valve in the basilic vein. Pt has a follow up with sarah in 8 days. pt denies any changes in swelling/tenderness. [facility] Medical History Thoracic aortic aneurysm Ischemic cardiomyopathy Dilated cardiomyopathy ICD (implantable cardioverter-defibrillator) in place History of blood transfusion GERD (gastroesophageal reflux disease) Hx of decubitus ulcer Renal artery stenosis Ischemic cardiomyopathy with implantable cardioverter-defibrillator (ICD) Paroxysmal ventricular tachycardia Peripheral arterial disease On beta cole at home Elevated cholesterol PVD (peripheral vascular disease) Myocardial infarction CAD (coronary artery disease) Angina pectoris HTN (hypertension) Surgical History Hx of endoscopy H/O cardiac catheterization History of heart artery stent History of renal stent Hx of hvykv-qelvs-kgyvklp bypass Hx of colonoscopy Hx of CABG Family History Father History of cancer Mother History of cancer Brother Substance use disorder Family/Other Substance use disorder Social History Housing: House Do you presently have visiting nurse or other home services: No Alcohol intake: never Patient Tobacco Use Status: Former Tobacco user Years Smoked: 35 years ago e-Cigarette/Vaping Use: Never Used Second Hand Smoke Exposure: No service: No Current occupational status: retired Cognitive needs: No Hearing needs: No Vision needs: Yes Questionnaire PHQ-9 Over the last 2 weeks, how often have you been bothered by any of the following problems? 1. Little interest or pleasure in doing things: not at all 2. Feeling down, depressed, or hopeless: not at all 3. Trouble falling or staying asleep, or sleeping too much: not at all 4. Feeling tired or having little energy: not at all 5. Poor appetite or overeating: not at all 6. Feeling bad about yourself - or that you are a failure or have let yourself or your family down: not at all 7. Trouble concentrating on things, such as reading the newspaper or watching television: not at all 8. Moving or speaking so slowly that other people could have noticed. Or the o pposite - being so fidgety or restless that you have been moving around a lot more than usual: not at all 9. Thoughts that you would be better off or of hurting yourself in some way: not at all Total score: 0 Depression Screening Interpretation: Negative Depression Screening Done: Yes 23257 - PHQ-9 Billing: Yes Source: Developed by Drs. Torsten Schroeder, Ayaka Cam, Christopher Hinton and colleagues, with an educational neal from [employer]. Thrive Questionnaire Date Thrive assessed: 01/01/24 I am a: Patient What is your living situation today?: I choose not to answer this question Within the past 12 months, did the food you bought not last and you didn't have the money to get more?: I choose not to answer this question Within the past 12 months, did you worry whether your food would run out before you got money to buy more?: I choose not to answer this question Do you have trouble paying for medicines?: I choose not to answer this question Do you have trouble getting transportation to medical appointments?: I choose not to answer this question Do you have trouble paying your heating and electricity bill?: I choose not to answer this question Do you have trouble taking care of your child, family member or friend?: I choose not to answer this question Do you have trouble with day-to-day activities such as bathing, preparing meals, shopping, managing finances, etc.?: I choose not to answer this question Are you currently unemployed and looking for a job?: I choose not to answer this question Are you interested in more education?: I choose not to answer this question Currently or been in a relationship where the following occur: I choose not to answer this question THRIVE Score: 0 AUDIT C Alcohol Use Questionnaire (AUDIT-C) 1. How often do you have a drink containing alcohol?: Never 3. How often do you have six or more drinks on one occasion?: Never Total Score: 0 Score Reviewed/Action Taken: No SAMMIE-7 AMB Questionnaire SAMMIE-7 Date SAMMIE - 7 assessed: 01/05/23 Feeling nervous, anxious, or on edge: 0 = Not at all Not being able to stop or control worryin = Several days Worrying too much about different things: 1 = Several days Trouble relaxin = Not at all Being so restless that it is hard to sit still: 0 = Not at all Becoming easily annoyed or irritable: 0 = Not at all Feeling afraid as if something awful might happen: 1 = Several days Total SAMMIE-7 score (0-4 normal; 5-9 mild; 10-14 moderate; 15-21 severe): 3 Source: Developed by Drs. Torsten Schroeder, Ayaka Cam, Christopher Hinton and colleagues, with an educational neal from [employer]. SAMMIE-7 Assessment Billing SAMMIE-7 Assessment Tool: SAMMIE-7 Assessment 93239 Review of Systems Const Reports as per HPI Physical exam (Primary Care) Vital Signs: Last Vital Signs Pulse 64 01/01/24 10:16 BP 130/70 01/01/24 10:16 Pulse Ox 97 01/01/24 10:16 Oxygen Delivery Method Room Air 01/01/24 10:16 BMI result Body Mass Index 32.2 Tobacco/Smoking Status: Tobacco use Status Tobacco use date assessed 01/01/24 01/01/24 10:21 Patient Tobacco Use Status Former Tobacco user 01/01/24 10:15 e-Cigarette/Vaping Use Never Used 01/01/24 10:15 PHQ-9: PHQ-9 Score PHQ-9: Total score 0 01/01/24 10:32 Depression Screening Interpretation: Negative Thrive Assessment: Date of Thrive Assessment Date Thrive assessed 01/01/24 01/01/24 10:24 Currently or been in a relationship where the following occur: I choose not to answer this question Const General: cooperative Nutritional Appearance: obese Orientation/consciousness: patient oriented x3 Resp Effort & Inspection: normal respiratory effort Auscultation: clear to auscultation bilaterally Cardio Rate: regular rate Rhythm: regular rhythm Heart sounds: S1 normal heart sound present and S2 normal heart sound present Neuro General: patient oriented x3 Extrem Other: swelling to left medial elbow region just medial to AC region, + bruit palpated Right lower extremity: edema (trace) Left lower extremity: edema (trace) Psych Appearance: grossly normal Mental Status: mental status grossly normal Speech and movement: Normal speech and movement present Affect: normal affect Attitude: cooperative Thought process: Normal thought process present Thought content: Normal thought content present Insight: Good insight present (Psych) Judgement: Good judgement present (Psych) Assessment and Plan Assessment & Plan (1) HTN (hypertension): Code(s): I10 - Essential (primary) hypertension Plan: Stable currently (2) AV fistula: Code(s): I77.0 - Arteriovenous fistula, acquired Plan: Seeing vascular, no changes in region (according to pt). Pt knows to seek medical attention JONNA with any changes. Plan The patient agreed to the use of a emergency medicine medical director for this encounter. Scribed for JACLYN Ackerman by mahsa Crump scribe, on 01/01/2024 at 10:30 EST. Coding Level of Care Code Est Pt Level 3 (71673) Diagnoses HTN (hypertension) I10 AV fistula I77.0 Additional Codes SAMMIE-7 Assessment Billing - SAMMIE-7 Assessment Tool: SAMMIE-7 Assessment 39194 ([id number])
[2024-01-01 10:16] VITALS: BP 130/70; PULSE 64; O2SAT 97; BMI 32.2
== END 2024-01-01 10:49 | disposition home or self-care (01) ==
PROVIDERS: PCP Nurse Practitioner Family; Visit Provider Nurse Practitioner Family
DX: I10 Essential (primary) hypertension (principal); I77.0 Arteriovenous fistula, acquired
CPT/HCPCS: 99213

== ENCOUNTER 2024-03-26 10:27 | Outpatient (REF) | payer MEDICARE, MEDICAID, SELFPAY ==
[2024-03-26 14:08] LABS: Blood Urea Nitrogen 19 mg/dL (9-16); Estimated Glomerular Filt Rate > 60
== END 2024-03-26 10:28 | disposition home or self-care (01) ==
LOC: HO.HMGCLDS 10:27
PROVIDERS: Urology; PCP Nurse Practitioner Family; Referring Provider Internal Medicine Hypertension Specialist; Visit Provider Nurse Practitioner Family
DX: N28.1 Cyst of kidney, acquired (principal); I70.1 Atherosclerosis of renal artery; R80.9 Proteinuria, unspecified
CPT/HCPCS: 36415; 82565; 84520

== ENCOUNTER 2024-04-01 08:50 | Outpatient (REF) | payer MEDICARE, MEDICAID, SELFPAY ==
--- NOTE | ~2024-04-01 | CT_ITS ---
EXAMINATION: CT ABDOMEN WITHOUT AND WITH CONTRAST CLINICAL INFORMATION: Atherosclerosis of renal artery. COMPARISON: Renal ultrasound 10/03/2023. TECHNIQUE: Contiguous axial thin section helical images of the abdomen were performed before and after the administration of 85 mL of Omnipaque 350 intravenous contrast. The data set was reformatted in the coronal and sagittal planes and reviewed on an independent workstation. This CT examination was performed using dose optimization techniques as appropriate, variously including the following: *Automated exposure control *Adjustment of mA and/or kV according to patient size (this includes techniques or standardized protocols for targeted exams where dose is matched to indication/reason for exam; i.e. extremities or head) *Use of iterative reconstruction technique DLP: 493 mGy-cm FINDINGS: LUNG BASES: No suspicious lung nodule. LIVER, GALLBLADDER, AND BILIARY TREE: Small hypodensities in the liver too small to characterize but most likely cysts. No imaging follow-up is recommended. No biliary ductal dilatation. The gallbladder has been removed. PANCREAS: No discrete pancreatic mass. No pancreatic ductal dilatation. SPLEEN: The spleen is normal in size. ADRENAL GLANDS AND KIDNEYS: No adrenal mass. Atrophic right kidney. Complex cyst in the mid right kidney measures 1.3 cm with a calcified septation measuring 3 mm. Bosniak 2F. Compensatory hypertrophy of the left kidney. There is a complex density cystic capsular/perinephric lesion in the mid to lower left kidney measuring 5.5 cm. This has a layering effect suggesting old blood product. Recommend correlation for any history of renal biopsy or spontaneous hematoma. Additional cysts in the right kidney are simple and do not need any follow-up. No hydronephrosis. BOWEL LOOPS: Small and large bowel loops are normal in caliber. Mild colonic diverticulosis. LYMPH NODES: No pathologically enlarged lymph nodes. VASCULAR: The exam was not performed as a CT angiogram which limits assessment. There is severe atherosclerotic disease throughout the lower thoracic and abdominal aorta with infrarenal abdominal aortic occlusion. The stents in the distal aorta and proximal iliac arteries are occluded. There is a bypass graft in the left chest wall which appears occluded. The right renal artery is occluded. The left renal artery is stented and appears patent, though in-stent stenosis cannot be determined due to technique and the artifact created by the dense calcium and mental. I suspect embolization coils along the anterior upper aspect of the kidney left kidney. Mild atherosclerosis of the celiac artery. Moderate to severe atherosclerosis of the superior mesenteric artery. Inferior mesenteric artery appears occluded proximally. BONES: No destructive osseous lesions. Degenerative changes in the spine. CT/CT abdomen wo/w IV con IMPRESSION: The exam was not performed as a CT angiogram which limits assessment. Stented left renal artery is patent, but in stent stenosis cannot be assessed due to the technique, dense calcium, and metallic artifact. Consider renal artery Doppler. Calcified aortoiliac occlusion. Occluded bilateral iliac artery stents. Bypass graft in the left chest wall appears occluded though this appearance could be related to the bolus timing of the exam as it was not performed to evaluate the bypass graft. Clinical correlation is necessary. Atrophic right kidney. Compensatory hypertrophy of the left kidney. 1.3 cm Bosniak 2F calcified septated cyst in the mid right kidney. Recommend follow-up CT in 6 months. 5.5 cm complex cystic lesion/collection along the left mid kidney capsular surface. This could be a chronic hematoma. Recommend correlation for any history of renal biopsy, renal trauma, spontaneous hemorrhage. Fleischner guidelines were followed. Electronically signed by: Seymour Park MD 04/18/2024 09:11 AM EDT
[2024-04-01] MEDS: iohexoL 350 MG/ML 75 ML INFUS..BTL 85 ML IV (09:50)
== END 2024-04-01 08:51 | disposition home or self-care (01) ==
LOC: HO.CT 08:50
PROVIDERS: PCP Nurse Practitioner Family; Visit Provider Urology
DX: I70.1 Atherosclerosis of renal artery (principal); N28.1 Cyst of kidney, acquired; R31.29 Other microscopic hematuria
CPT/HCPCS: 74170; Q9967

== ENCOUNTER 2024-05-22 08:11 | Outpatient (AMB) | payer MEDICARE, MEDICAID, SELFPAY ==
[2024-05-22 08:12] VITALS: BP 102/60; PULSE 76; O2SAT 97; BMI 30.9
--- NOTE | 2024-05-22 08:12 | MHC.PC.OV ---
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 Will order labs. Colon screen is up to date. Due for PSA, will order. Denies dribbling with urination, weak stream, and frequent nocturia. Pt is seeing cardiology, dermatology, plastic surgery, nephrology, vascular, podiatry, and urology. Recently, right anti-helix skin cancer removed, grafting involved. [facility] Medical History NSTEMI (non-ST elevated myocardial infarction) STEMI (ST elevation myocardial infarction) BCC (basal cell carcinoma), ear Thoracic aortic aneurysm Ischemic cardiomyopathy Dilated cardiomyopathy ICD (implantable cardioverter-defibrillator) in place History of blood transfusion GERD (gastroesophageal reflux disease) Hx of decubitus ulcer Renal artery stenosis Ischemic cardiomyopathy with implantable cardioverter-defibrillator (ICD) Paroxysmal ventricular tachycardia Peripheral arterial disease On beta cole at home Elevated cholesterol PVD (peripheral vascular disease) Myocardial infarction CAD (coronary artery disease) Angina pectoris HTN (hypertension) Surgical History H/O skin graft Hx of endoscopy H/O cardiac catheterization History of heart artery stent History of renal stent Hx of nraio-godgi-dvmyuyr bypass Hx of colonoscopy Hx of CABG Family History Father History of cancer Mother History of cancer Brother Substance use disorder Family/Other Substance use disorder Social History Housing: House Do you presently have visiting nurse or other home services: No Alcohol intake: never Patient Tobacco Use Status: Former Tobacco user Years Smoked: 35 years ago e-Cigarette/Vaping Use: Never Used Second Hand Smoke Exposure: No service: No Current occupational status: retired Cognitive needs: No Hearing needs: No Vision needs: Yes Questionnaire PHQ-9 Over the last 2 weeks, how often have you been bothered by any of the following problems? 1. Little interest or pleasure in doing things: not at all 2. Feeling down, depressed, or hopeless: not at all 3. Trouble falling or staying asleep, or sleeping too much: not at all 4. Feeling tired or having little energy: not at all 5. Poor appetite or overeating: not at all 6. Feeling bad about yourself - or that you are a failure or have let yourself or your family down: not at all 7. Trouble concentrating on things, such as reading the newspaper or watching television: not at all 8. Moving or speaking so slowly that other people could have noticed. Or the opposite - being so fidgety or restless that you have been moving around a lot more than usual: not at all 9. Thoughts that you would be better off or of hurting yourself in some way: not at all Total score: 0 Depression Screening Interpretation: Negative Depression Screening Done: Yes 77259 - PHQ-9 Billing: Yes Source: Developed by Drs. Torsten Schroeder, Ayaka Cam, Christopher Hinton and colleagues, with an educational neal from [employer]. Thrive Questionnaire Date Thrive assessed: 05/22/24 I am a: Patient What is your living situation today?: I have a steady place to live Within the past 12 months, did the food you bought not last and you didn't have the money to get more?: Sometimes True Within the past 12 months, did you worry whether your food would run out before you got money to buy more?: Often true Do you have trouble paying for medicines?: No Do you have trouble getting transportation to medical appointments?: No Do you have trouble paying your heating and electricity bill?: No Do you have trouble taking care of your child, family member or friend?: No Do you have trouble with day-to-day activities such as bathing, preparing meals, shopping, managing finances, etc.?: No Are you interested in more education?: No Please select the resources that you would like help with: None Currently or been in a relationship where the following occur: No concerns reported THRIVE Score: 2 AUDIT C Alcohol Use Questionnaire (AUDIT-C) 1. How often do you have a drink containing alcohol?: Never 3. How often do you have six or more drinks on one occasion?: Never Total Score: 0 Score Reviewed/Action Taken: Yes SAMMIE-7 AMB Questionnaire SAMMIE-7 Date SAMMIE - 7 assessed: 05/22/24 Feeling nervous, anxious, or on edge: 0 = Not at all Not being able to stop or control worryin = Not at all Worrying too much about different things: 0 = Not at all Trouble relaxin = Not at all Being so restless that it is hard to sit still: 0 = Not at all Becoming easily annoyed or irritable: 0 = Not at all Feeling afraid as if something awful might happen: 0 = Not at all Total SAMMIE-7 score (0-4 normal; 5-9 mild; 10-14 moderate; 15-21 severe): 0 Source: Developed by Drs. Torsten Schroeder, Ayaka Cam, Christopher Hinton and colleagues, with an educational neal from [employer]. SAMMIE-7 Assessment Billing SAMMIE-7 Assessment Tool: SAMMIE-7 Assessment 61067 Review of Systems Const Denies chills and Denies fever(s) Eyes Denies blurry vision ENT Denies vertigo, Denies dizziness and Denies sore throat Card Denies chest pain at rest, Denies chest pain with activity, Denies diaphoresis, Denies dyspnea and Denies dyspnea on exertion Resp Denies cough, Denies dyspnea, Denies dyspnea on exertion and Denies wheezing GI Denies abdominal pain, Denies melena, Denies hematochezia, Denies constipation, Denies diarrhea and Denies loose stools Denies hematuria Musc Denies numbness and Denies tingling Skin/Breast Denies lesions Neuro Denies vertigo, Denies dizziness, Denies numbness and Denies tingling Psych Denies anxiety, Denies depression, Denies homicidal ideation, Denies suicidal ideation and Denies other (substance abuse) Aller/Immun Denies wheezing Physical exam (Primary Care) Vital Signs: Last Vital Signs Pulse 76 05/22/24 08:12 BP 102/60 05/22/24 08:12 Pulse Ox 97 05/22/24 08:12 BMI result Body Mass Index 30.9 Tobacco/Smoking Status: Tobacco use Status Tobacco use date assessed 01/01/24 05/22/24 08:14 Patient Tobacco Use Status Former Tobacco user 05/22/24 08:14 e-Cigarette/Vaping Use Never Used 05/22/24 08:14 PHQ-9: PHQ-9 Score PHQ-9: Total score 0 05/22/24 08:14 Depression Screening Interpretation: Negative Thrive Assessment: Date of Thrive Assessment Date Thrive assessed 05/22/24 05/22/24 08:14 Currently or been in a relationship where the following occur: No concerns reported Const General: cooperative Nutritional Appearance: well nourished Orientation/consciousness: patient oriented x3 HENMT Head: Yes normal to inspection, Yes normocephalic and Yes atraumatic Ears: TM's normal bilaterally Eyes General: appearance normal, both eyes and all related structures Alignment and Position: alignment normal and position normal Neck Neck: Yes normal visual inspection, Yes no lymphadenopathy and Yes supple Resp Effort & Inspection: normal respiratory effort Auscultation: clear to auscultation bilaterally Cardio Rate: regular rate Rhythm: regular rhythm Heart sounds: S1 normal heart sound present, S2 normal heart sound present and Murmur heart sound present systolic GI Palpation (GI): Soft to palpation and nontender Auscultation: normal bowel sounds Male General Exam: Yes normal external exam Penis: normal penis Scrotum: scrotum normal, testes descended bilaterally and no inguinal hernias Testes: no testicular mass Skin Other: right upper antihelix with healing scabbed lesion Rashes: no rashes Neuro General: patient oriented x3, moves all extremities, no focal motor deficits and deep tendon reflexes 2+ bilaterally Romberg Test: Negative Extrem Other: left medial proximal forearm with bulging palpable thrill (fistula) Psych Appearance: grossly normal Mental Status: mental status grossly normal Speech and movement: Normal speech and movement present Affect: normal affect Attitude: cooperative Thought process: Normal thought process present Thought content: Normal thought content present Insight: Good insight present (Psych) Judgement: Good judgement present (Psych) Coding Level of Care Code Est Pt Prev Care >65y(28010) Diagnoses Physical exam Z00.00 Screening PSA (prostate specific antigen) Z12.5 Additional Codes SAMMIE-7 Assessment Billing - SAMMIE-7 Assessment Tool: SAMMIE-7 Assessment 19855 ([id number]) Assessment & Plan Assessment & Plan (1) Physical exam: Code(s): Z00.00 - Encounter for general adult medical examination without abnormal findings Category: Medical Plan: Labs ordered (2) Screening PSA (prostate specific antigen): Code(s): Z12.5 - Encounter for screening for malignant neoplasm of prostate Category: Medical Plan: PSA order Plan The patient agreed to the use of a medical laboratory manager for this encounter. Scribed for JACLYN Ackerman by Juliana Harden medical laboratory manager, on 05/22/2024 at 08:30 EST. Orders: Orders Complete Blood Count Auto Diff Today Z00.00 - Encounter for general adult medical examination without abnormal findings Comprehensive [place]. Panel Fast Today Z00.00 - Encounter for general adult medical examination without abnormal findings TSH reflex Free T4 Today Z00.00 - Encounter for general adult medical examination without abnormal findings UA CC w/rflx Micro + Cult Today Z00.00 - Encounter for general adult medical examination without abnormal findings Lipid Panel Today Z00.00 - Encounter for general adult medical examination without abnormal findings Prostate Specific Antigen Scr Today Z12.5 - Encounter for screening for malignant neoplasm of prostate
== END 2024-05-22 09:41 | disposition home or self-care (01) ==
PROVIDERS: PCP Nurse Practitioner Family; Visit Provider Nurse Practitioner Family
DX: Z00.00 Encounter for general adult medical examination without abnormal findings (principal); Z12.5 Encounter for screening for malignant neoplasm of prostate

== ENCOUNTER → 2024-05-22 08:11 | Outpatient (BNVA) | payer MEDICARE, MEDICAID, SELFPAY | PROVIDERS: PCP Nurse Practitioner Family; Visit Provider Nurse Practitioner Family | DX: Z00.00 Encounter for general adult medical examination without abnormal findings (principal); I10 Essential (primary) hypertension; E78.00 Pure hypercholesterolemia, unspecified | CPT/HCPCS: 96127; 99397 ==

== ENCOUNTER 2024-05-23 10:53 | Outpatient (AMB) | payer MEDICARE, MEDICAID, SELFPAY ==
[2024-05-23 11:02] VITALS: BP 82/54; PULSE 52; O2SAT 96; BMI 30.6
--- NOTE | 2024-05-23 11:02 | HO.NEPHOV ---
Vital Signs 05/23/24 11:02 05/23/24 11:38 Height 5 ft 9 in Weight 207 lb BMI 30.6 BP 82/54 L 120/60 Blood Pressure Location Rt brachial Lt brachial Position Sitting Sitting Pulse 52 Pulse Source Pulse Oximeter Pulse Oximetry (%) 96 Oxygen Delivery Method Room Air Intake Visit Reasons: HTN / 5 MO FU/ Conf Data Communications Analyst Required: No Accompanied by: Self / Same As Patient Allergies meperidine [Demerol] Allergy (Unknown, Verified 05/23/24 11:15) Nausea and Vomiting ivp dye Allergy (Unknown, Uncoded 01/01/24 10:53) redness and itching Medication List - Last Reconciled 05/23/24 by Darron Hyde MD acetaminophen 500 mg PO Q6H PRN amlodipine 2.5 mg PO BID aspirin 81 mg PO DAILY clopidogrel 1 tab PO DAILY dapagliflozin propanediol (Farxiga) 10 mg PO DAILY diphenhydramine HCl (Allergy (diphenhydramine)) 50 mg (2 x 25 mg) PO ONCE PRN ezetimibe 1 tab PO DAILY furosemide 20 mg PO DAILY isosorbide mononitrate ER 1 tab PO DAILY losartan 50 mg PO DAILY metoprolol succinate ER 200 mg PO DAILY nitroglycerin 0.4 mg sublingual PRN omega-3 fatty acids 2,000 mg (2 x 1,000 mg) PO BID 90 days omeprazole 20 mg PO DAILY 90 days rosuvastatin 1 tab PO BEDTIME HPI Comments Details: 72 yr old man with a h/o significant PVD and CAD with HTN was found to have proteinuria by dipstick Initially he had trace hematuria. Repeat UA did not show hematuria. NO RBCs were seem REferred for evaluation of protinuria Also has an appoinment with Urology and IVP has been ordered OF note, he has severe PVD. Being managed in [place] h/o ODELL - attempted stenting few years ago and was complicated by severe hemorrhage and acute AL At present, BP is well controlled. Renal function has been stable. 05/23/[address] [facility] Underwent cardiac Cath Farxiga ahs been added . [facility] Medical History NSTEMI (non-ST elevated myocardial infarction) STEMI (ST elevation myocardial infarction) BCC (basal cell carcinoma), ear Thoracic aortic aneurysm Ischemic cardiomyopathy Dilated cardiomyopathy ICD (implantable cardioverter-defibrillator) in place History of blood transfusion GERD (gastroesophageal reflux disease) Hx of decubitus ulcer Renal artery stenosis Ischemic cardiomyopathy with implantable cardioverter-defibrillator (ICD) Paroxysmal ventricular tachycardia Peripheral arterial disease On beta cole at home Elevated cholesterol PVD (peripheral vascular disease) Myocardial infarction CAD (coronary artery disease) Angina pectoris HTN (hypertension) Surgical History H/O skin graft Hx of endoscopy H/O cardiac catheterization History of heart artery stent History of renal stent Hx of [id number]-webyeoy bypass Hx of colonoscopy Hx of CABG Family History Father History of cancer Mother History of cancer Brother Substance use disorder Family/Other Substance use disorder Social History Housing: House Do you presently have visiting nurse or other home services: No Alcohol intake: never Patient Tobacco Use Status: Former Tobacco user Years Smoked: 35 years ago e-Cigarette/Vaping Use: Never Used Second Hand Smoke Exposure: No service: No Current occupational status: retired Cognitive needs: No Hearing needs: No Vision needs: Yes Physical Exam Vital Signs: Last Vital Signs Pulse 52 05/23/24 11:02 BP 82/54 L 05/23/24 11:02 Pulse Ox 96 05/23/24 11:02 Oxygen Delivery Method Room Air 05/23/24 11:02 BMI result Body Mass Index 30.6 Results Reviewed Results Reviewed: CT Mar 2024 ADRENAL GLANDS AND KIDNEYS: No adrenal mass. Atrophic right kidney. Complex cyst in the mid right kidney measures 1.3 cm with a calcified septation measuring 3 mm. Bosniak 2F. Compensatory hypertrophy of the left kidney. There is a complex density cystic capsular/perinephric lesion in the mid to lower left kidney measuring 5.5 cm. This has a layering effect suggesting old blood product. Recommend correlation for any history of renal biopsy or spontaneous hematoma. Additional cysts in the right kidney are simple and do not need any follow-up. No hydronephrosis. Nephrology Results: Hgb 13.2 g/dl (14.0-18.0) L 12/26/23 WBC 7.2 X10*3/uL (4.8-10.8) 12/26/23 Plt Count 162 X10*3/uL (160-400) 12/26/23 Sodium 141 mmol/L (135-145) 12/26/23 Potassium 5.0 mmol/L (3.3-5.1) 12/26/23 Chloride 106 mmol/L (96-108) 12/26/23 Carbon Dioxide 24 mmol/L (22-29) 12/26/23 BUN 19 mg/dL (9-16) H 03/26/24 Creatinine 1.14 mg/dL (0.5-1.4) 03/26/24 Calcium 9.4 mg/dL (8.4-10.2) 12/26/23 Urine Protein 300 (3+) mg/dL (Neg-Trace) H 12/26/23 Urine Creatinine 432.63 mg/dL 12/26/23 Renal US 10/03/23 Assessment & Plan Assessment & Plan (1) Protein in urine: Code(s): R80.9 - Proteinuria, unspecified Category: Medical Plan: Mild CKD with proteinuria Most likely due to underlying hypertensive disease GN or AiN are unlikely NO significant hematuria proteinuria - protein creatinine ratio was 0.90. UA did not reveal any significant RBCs/hematuria. Specific gravity was more than 1.010. Keep Losartan for renal protection Renal sonogram Showed complex cyst and currently being evaluated by Urology. Waiting for cystoscopy as well . (2) HTN (hypertension): Code(s): I10 - Essential (primary) hypertension Category: Medical Plan: BP is well controlled. Left arm readings greater beatriz right arm No change in meds Low salt diet (3) PAD (peripheral artery disease): Code(s): I73.9 - Peripheral vascular disease, unspecified Category: Medical Plan: Continue follow up with Vascular surgeon (4) Renal artery stenosis: Comment: renal stent x 2 Code(s): I70.1 - Atherosclerosis of renal artery Category: Medical Plan: At present, BP is well controlled and renal function is stable Would continue conservative medical management (5) Ischemic cardiomyopathy with implantable cardioverter-defibrillator (ICD): Comment: [employer] VVI ICD Model 1411- Implanted 2015 Code(s): I25.5 - Ischemic cardiomyopathy; Z95.810 - Presence of automatic (implantable) cardiac defibrillator Category: Medical Plan: Continue close follow up with Cardiology Recheck renal panel post cath (6) Complex renal cyst: Code(s): N28.1 - Cyst of kidney, acquired Category: Medical Plan AWait follow up Orders: Orders Basic Metabolic Panel 6 Months I10 - Essential (primary) hypertension, N28.1 - Cyst of kidney, acquired Coding Level of Care Code Est Pt Level 4 (96042) Diagnoses Protein in urine R80.9 HTN (hypertension) I10 PAD (peripheral artery disease) I73.9 Renal artery stenosis I70.1 Ischemic cardiomyopathy with implantable cardioverter-defibrillator (ICD) I25.5; Z95.810 Complex renal cyst N28.1
[2024-05-23 11:38] VITALS: BP 120/60
== END 2024-05-23 11:46 | disposition home or self-care (01) ==
PROVIDERS: PCP Nurse Practitioner Family; Visit Provider Internal Medicine Hypertension Specialist
DX: R80.9 Proteinuria, unspecified (principal); I10 Essential (primary) hypertension; I73.9 Peripheral vascular disease, unspecified; I70.1 Atherosclerosis of renal artery; I25.5 Ischemic cardiomyopathy; Z95.810 Presence of automatic (implantable) cardiac defibrillator; N28.1 Cyst of kidney, acquired
CPT/HCPCS: 99214

== ENCOUNTER → 2024-05-23 10:53 | Outpatient (BNVA) | payer MEDICARE, MEDICAID, SELFPAY | PROVIDERS: PCP Nurse Practitioner Family; Visit Provider Internal Medicine Hypertension Specialist | DX: I10 Essential (primary) hypertension (principal); N28.1 Cyst of kidney, acquired; R80.9 Proteinuria, unspecified; I73.9 Peripheral vascular disease, unspecified; I70.1 Atherosclerosis of renal artery; I25.5 Ischemic cardiomyopathy; Z95.810 Presence of automatic (implantable) cardiac defibrillator | CPT/HCPCS: 99212 ==

== ENCOUNTER 2024-05-30 08:27 | Outpatient (AMB) | payer MEDICARE, MEDICAID, SELFPAY ==
--- NOTE | 2024-05-30 08:29 | MHC.OFFVIS ---
Intake Visit Reasons: 7m/CT Intake Note: Patient is present for 7m/CT Urology Medication:DIPHENHYDRAMINE Antibiotic Allergy:NONE Blood Thinner:ASPIRIN Engineering Vice President Required: No Allergies meperidine [Demerol] Allergy (Unknown, Verified 05/30/24 08:31) Nausea and Vomiting ivp dye Allergy (Unknown, Uncoded 05/30/24 08:31) redness and itching Medication List - Last Reconciled 05/30/24 by Sharita Powell MD acetaminophen 500 mg PO Q6H PRN amlodipine 2.5 mg PO BID aspirin 81 mg PO DAILY clopidogrel 1 tab PO DAILY dapagliflozin propanediol (Farxiga) 10 mg PO DAILY ezetimibe 1 tab PO DAILY furosemide 20 mg PO DAILY isosorbide mononitrate ER 1 tab PO DAILY losartan 50 mg PO DAILY metoprolol succinate ER 200 mg PO DAILY nitroglycerin 0.4 mg sublingual PRN omega-3 fatty acids 2,000 mg (2 x 1,000 mg) PO BID 90 days omeprazole 20 mg PO DAILY 90 days rosuvastatin 1 tab PO BEDTIME HPI Comments Details: 05/30/24--John was initially referred due to microscopic hematuria. Upper tract imaging with renal ultrasound noted bilateral complex renal cysts. He is here in follow-up I have reviewed CT abdomen with and without IV contrast on 04/01/24- Atrophic right kidney. Compensatory hypertrophy of the left kidney. 1.3 cm Bosniak 2F calcified septated cyst in the mid right kidney. 5.5 cm complex cystic lesion/collection along the left mid kidney capsular surface. This could be a chronic hematoma. The patient is followed by nephrology. He was started on tamsulosin but stated he had dizziness and blood pressure lowered his PCP advised him to stop the tamsulosin. He states that he has a good urinary flow. Review of labs- PSA 03/16/2023--0.69. Patient has labs pending ordered by his PCP which include a screening PSA. Will follow-up in 1 year with renal ultrasound prior. Review of chart: 10/30/2023--John is a 73-year-old male who has been evaluated for microscopic hematuria. He is here in follow-up. I have reviewed recent renal ultrasound dated 10/03/23, notable for bilateral renal cysts simple and complex. He is also followed by Nephrology. I have discussed CT abd/ renal mass protocol for follow up in 6 months Office Cysto today- findings: no suspicious bladder lesions, bilobar enlargement of prostate with bladder wall thickening. I have discussed to start an alpha cole, tamsulosin 0.4 mg daily. 10/30/23--PLAN: tamsulosin 0.4 mg daily in the evening CT abd w/wo IV contrast in 6 months. 09/18/23--John is a 72-year-old male who is here for evaluation for microscopic hematuria. Past Medical history - significant peripheral vascular disease, history of CABG, history of thoracic abdominal aortic aneurysm. He is on Plavix blood thinner. He states he gets lower extremity pain from walking and uses a wheelchair to get around when outside of his home. The patient denies irritative voiding symptoms, denies gross hematuria, he has history of nicotine use. I have reviewed chart, PSA 03/16/2023--0.69. I have discussed avoiding dietary bladder irritants, including caffeine usage, he states that he drinks a lot of water daily. I have discussed reasons for blood in the urine may include but are not limited to kidney stones, cancer in the urinary tract, kidney stone disease or inflammatory conditions of the urinary tract, BPH. I have discussed workup to include evaluation of the upper tracts and cystoscopy evaluation. UA--leukocytes negative, protein 3+, Plan: The patient has seen nephrology for proteinuria and has renal ultrasound pending for October 03, 2023. Schedule Office cystoscopy, urine for cytology. [facility] Medical History NSTEMI (non-ST elevated myocardial infarction) STEMI (ST elevation myocardial infarction) BCC (basal cell carcinoma), ear Thoracic aortic aneurysm Ischemic cardiomyopathy Dilated cardiomyopathy ICD (implantable cardioverter-defibrillator) in place History of blood transfusion GERD (gastroesophageal reflux disease) Hx of decubitus ulcer Renal artery stenosis Ischemic cardiomyopathy with implantable cardioverter-defibrillator (ICD) Paroxysmal ventricular tachycardia Peripheral arterial disease On beta cole at home Elevated cholesterol PVD (peripheral vascular disease) Myocardial infarction CAD (coronary artery disease) Angina pectoris HTN (hypertension) Surgical History H/O skin graft Hx of endoscopy H/O cardiac catheterization History of heart artery stent History of renal stent Hx of cnebb-cbqxv-sejkxjw bypass Hx of colonoscopy Hx of CABG Family History Father History of cancer Mother History of cancer Brother Substance use disorder Family/Other Substance use disorder Social History Housing: House Do you presently have visiting nurse or other home services: No Alcohol intake: never Patient Tobacco Use Status: Former Tobacco user Years Smoked: 35 years ago e-Cigarette/Vaping Use: Never Used Second Hand Smoke Exposure: No service: No Current occupational status: retired Cognitive needs: No Hearing needs: No Vision needs: Yes Results AMB Urinalysis, Automated UA Leukoctes 0 [place]/uL Last Edit by STEVE Jacobson on 05/30/24 08:51 UA Nitrite Negative Last Edit by STEVE Jacobson on 05/30/24 08:51 UA Urobilinogen 0.2 mg/dL Last Edit by STEVE Jacobson on 05/30/24 08:51 UA Protein 300 mg/dL Last Edit by STEVE Jacobson on 05/30/24 08:51 UA pH 6.0 Last Edit by STEVE Jacobson on 05/30/24 08:51 UA Blood 0 [place]/uL Last Edit by STEVE Jacobson on 05/30/24 08:51 UA Specific [place] 1.025 Last Edit by STEVE Jacobson on 05/30/24 08:51 UA Ketone Negative Last Edit by STEVE Jacobson on 05/30/24 08:51 UA Bilirubin 0 mg/dL Last Edit by STEVE Jacobson on 05/30/24 08:51 UA Glucose 1000 mg/dL Last Edit by STEVE Jacobson on 05/30/24 08:51 Results Reviewed Results Reviewed: Laboratory Last Values Urine pH (Auto) 6.0 05/30/24 08:50 Specific [place] (Auto) 1.025 05/30/24 08:50 Urine Protein (Auto) 300 mg/dL 05/30/24 08:50 Glucose (UA)(Auto) 1000 mg/dL 05/30/24 08:50 Urine Ketones (Auto) Negative 05/30/24 08:50 Urine Blood (Auto) 0 [place]/uL 05/30/24 08:50 Urine Nitrite (Auto) Negative 05/30/24 08:50 Urine Bilirubin (Auto) 0 mg/dL 05/30/24 08:50 Urine Urobilinogen (Auto) 0.2 mg/dL 05/30/24 08:50 Leukocyte Esterase (Auto) 0 [place]/uL 05/30/24 08:50 Date of Service: 04/01/24 CT ABDOMEN WITHOUT AND WITH CONTRAST CLINICAL INFORMATION: Atherosclerosis of renal artery. COMPARISON: Renal ultrasound 10/03/2023. TECHNIQUE: Contiguous axial thin section helical images of the abdomen were performed before and after the administration of 85 mL of Omnipaque 350 intravenous contrast. The data set was reformatted in the coronal and sagittal planes and reviewed on an independent workstation. This CT examination was performed using dose optimization techniques as appropriate, variously including the following: *Automated exposure control *Adjustment of mA and/or kV according to patient size (this includes techniques or standardized protocols for targeted exams where dose is matched to indication/reason for exam; i.e. extremities or head) *Use of iterative reconstruction technique DLP: 493 mGy-cm FINDINGS: LUNG BASES: No suspicious lung nodule. LIVER, GALLBLADDER, AND BILIARY TREE: Small hypodensities in the liver too small to characterize but most likely cysts. No imaging follow-up is recommended. No biliary ductal dilatation. The gallbladder has been removed. PANCREAS: No discrete pancreatic mass. No pancreatic ductal dilatation. SPLEEN: The spleen is normal in size. ADRENAL GLANDS AND KIDNEYS: No adrenal mass. Atrophic right kidney. Complex cyst in the mid right kidney measures 1.3 cm with a calcified septation measuring 3 mm. Bosniak 2F. Compensatory hypertrophy of the left kidney. There is a complex density cystic capsular/perinephric lesion in the mid to lower left kidney measuring 5.5 cm. This has a layering effect suggesting old blood product. Recommend correlation for any history of renal biopsy or spontaneous hematoma. Additional cysts in the right kidney are simple and do not need any follow-up. No hydronephrosis. BOWEL LOOPS: Small and large bowel loops are normal in caliber. Mild colonic diverticulosis. LYMPH NODES: No pathologically enlarged lymph nodes. VASCULAR: The exam was not performed as a CT angiogram which limits assessment. There is severe atherosclerotic disease throughout the lower thoracic and abdominal aorta with infrarenal abdominal aortic occlusion. The stents in the distal aorta and proximal iliac arteries are occluded. There is a bypass graft in the left chest wall which appears occluded. The right renal artery is occluded. The left renal artery is stented and appears patent, though in-stent stenosis cannot be determined due to technique and the artifact created by the dense calcium and mental. I suspect embolization coils along the anterior upper aspect of the kidney left kidney. Mild atherosclerosis of the celiac artery. Moderate to severe atherosclerosis of the superior mesenteric artery. Inferior mesenteric artery appears occluded proximally. BONES: No destructive osseous lesions. Degenerative changes in the spine. IMPRESSION: The exam was not performed as a CT angiogram which limits assessment. Stented left renal artery is patent, but in stent stenosis cannot be assessed due to the technique, dense calcium, and metallic artifact. Consider renal artery Doppler. Calcified aortoiliac occlusion. Occluded bilateral iliac artery stents. Bypass graft in the left chest wall appears occluded though this appearance could be related to the bolus timing of the exam as it was not performed to evaluate the bypass graft. Clinical correlation is necessary. Atrophic right kidney. Compensatory hypertrophy of the left kidney. 1.3 cm Bosniak 2F calcified septated cyst in the mid right kidney. Recommend follow-up CT in 6 months. 5.5 cm complex cystic lesion/collection along the left mid kidney capsular surface. This could be a chronic hematoma. Recommend correlation for any history of renal biopsy, renal trauma, spontaneous hemorrhage. Date of Service: 10/03/23 EXAMINATION: US RETROPERITONEAL LIMITED (RENAL ONLY) CLINICAL INFORMATION: Proteinuria, unspecified. COMPARISON: None available. TECHNIQUE: Real-time imaging of the kidneys. Limited visualization due to bowel gas. FINDINGS: RIGHT KIDNEY: 9.6 x 4.1 x 5.2 cm (SAG x AP x TRV). Multiple renal cysts, largest midpole 1.9 x 1.2 x 1.7 cm is complex with moderately thickened septations. Midpole 1.2 x 1.4 x 1.3 cm simple cyst. Leo-ae-pnwcf pole 1.1 x 1.2 x 0.8 cm simple cyst. No hydronephrosis. No renal calculi. Limited visualization. LEFT KIDNEY: 12.3 x 6.8 x 6.5 cm (SAG x AP x TRV). No hydronephrosis. No renal calculi. Limited visualization. Multiple renal cysts, largest midpole exophytic 5.9 x 5.5 x 6.3 cm is complex with thick internal septations and internal echoes. IMPRESSION: Bilateral renal cysts, largest left 6.3 cm and right 1.9 cm are moderately complex. CT scan with intravenous contrast employing renal mass protocol recommended. Assessment & Plan Assessment & Plan (1) Renal artery stenosis: Comment: renal stent x 2 Code(s): I70.1 - Atherosclerosis of renal artery Category: Medical (2) Complex renal cyst: Code(s): N28.1 - Cyst of kidney, acquired Category: Medical (3) Microscopic hematuria: Code(s): R31.29 - Other microscopic hematuria Category: Medical (4) Protein in urine: Code(s): R80.9 - Proteinuria, unspecified Category: Medical Plan FU in one year - renal US prior Hypotension with tamsulosin use Orders: Orders US renal BI 10 Months N28.1 - Cyst of kidney, acquired AMB Urinalysis Automated Today Z13.9 - Encounter for screening, unspecified Patient Instructions: The patient had an opportunity to ask questions regarding treatment plan. The patient expressed understanding and agreement with the above treatment plan. The patient is aware they should contact our office by phone for worsening of their current condition or the appearance of new symptoms. Compliance is encouraged with any medications and followup testing that is ordered. It is a privilege to be allowed the opportunity to participate in the urologic care of your patient. If you have any questions or concerns regarding treatment for the above conditions please do not hesitate to contact me. The office telephone contact is [phone]. This note is constructed in part using voice recognition software. While every effort has been made to ensure accuracy rail maintenance worker errors may have been included. Yours sincerely, Sharita Powell MD Coding Level of Care Code Est Pt Level 4 (68517) Diagnoses Renal artery stenosis I70.1 Complex renal cyst N28.1 Microscopic hematuria R31.29 Protein in urine R80.9
== END 2024-05-30 09:16 | disposition home or self-care (01) ==
PROVIDERS: PCP Nurse Practitioner Family; Visit Provider Urology
DX: I70.1 Atherosclerosis of renal artery (principal); N28.1 Cyst of kidney, acquired; R31.29 Other microscopic hematuria; R80.9 Proteinuria, unspecified; Z13.9 Encounter for screening, unspecified
CPT/HCPCS: 99214

== ENCOUNTER → 2024-05-30 08:27 | Outpatient (BNVA) | payer MEDICARE, MEDICAID, SELFPAY | PROVIDERS: PCP Nurse Practitioner Family; Visit Provider Urology | DX: N28.1 Cyst of kidney, acquired (principal); R31.29 Other microscopic hematuria; R80.9 Proteinuria, unspecified; I70.1 Atherosclerosis of renal artery | CPT/HCPCS: 81003; 99212 ==

== ENCOUNTER 2024-06-26 12:44 | Outpatient (REF) | payer MEDICARE, MEDICAID, SELFPAY ==
[2024-06-26 16:19] LABS: Appearance Urine Clear; Color Urine Dark Yellow; Glucose Urine UA >=1000 mg/dL (Negative); Leukocyte Esterase Urine Negative (Negative); Nitrite Urine Negative (Negative); Specific Gravity - Urine >= 1.030 (1.005-1.025); UMIC TRIGGER UACC YES; Urine Blood Negative (Negative); Urine Ketones Trace mg/dL (Negative); Urine Protein 300 (3+) mg/dL (Neg-Trace)
[2024-06-26 16:22] LABS: Bacteria Urine None Seen (None Seen); Hyaline Casts Urine 0-2 /LPF (0-2); RBC Urine 0-2 /HPF (0-2); Squamous Epithelial Cell Urine 0-2 /HPF (0-2); WBC Urine 0-5 /HPF (0-5)
[2024-06-26 16:24] LABS: MANUAL DIFF FLAG NO
[2024-06-26 16:36] LABS: Basophils Absolute Auto 0.1 X10*3/uL (0.0-0.2); Basophils Percent Auto 0.7 % (0-2); Eosinophils Absolute Auto 0.2 X10*3/uL (0.0-0.4); Eosinophils Percent Auto 2.6 % (0-4); Hemoglobin 13.3 g/dl (14.0-18.0); Imm Gran Abs Auto 0.01 X10*3/uL (0.00-0.03); Imm Gran Pct Auto 0.1 % (0.0-0.4); Lymphocytes Absolute Auto 2.9 X10*3/uL (1.2-4.9); Lymphocytes Percent Auto 33.6 % (20-40); Mean Corpuscular HGB Conc 31.7 g/dl (31.0-36.0); Mean Corpuscular Hemoglobin 28.4 pg (27.0-33.0); Mean Corpuscular Volume 89.6 fL (80.0-98.0); Mean Platelet Volume 9.7 fL (9.4-12.4); Monocytes Absolute Auto 0.5 X10*3/uL (0.1-1.2); Monocytes Percent Auto 5.8 % (2-11); Neutrophils Absolute Auto 4.9 x10*3/uL (2.0-8.3); Neutrophils Percent Auto 57.2 % (45-73); Platelet Count 180 X10*3/uL (160-400); Red Blood Count 4.69 X10*6/uL (4.60-5.80); Red Cell Distribution Width 13.7 % (11.0-16.0); White Blood Count 8.6 X10*3/uL (4.8-10.8)
[2024-06-26 16:54] LABS: Alanine Aminotransferase 22 U/L (0-40); Albumin Level 4.1 g/dL (3.5-5.0); Alkaline Phosphatase 29 U/L (39-117); Anion Gap 14 (12-20); Aspartate Amino Transferase 29 U/L (5-37); Bilirubin Total 0.6 mg/dL (0.0-1.0); Blood Urea Nitrogen 20 mg/dL (9-16); Calcium 9.9 mg/dL (8.4-10.2); Carbon Dioxide 25 mmol/L (22-29); Chloride 105 mmol/L (96-108); Cholesterol 124 mg/dL (<200); Estimated Glomerular Filt Rate > 60; Glucose Fasting 98 mg/dL (60-99); HDL Cholesterol 50 mg/dL (>40); LDL Cholesterol Calculated 48 mg/dL (<100); Potassium 4.9 mmol/L (3.3-5.1); Sodium 139 mmol/L (135-145); Total Protein 6.8 g/dL (6.5-8.0); Triglycerides 132 mg/dL (<150)
[2024-06-26 17:03] LABS: Prostate Specific Antigen Scr 0.77 ng/mL (<0.05-4.0)
[2024-06-26 17:12] LABS: TSH reflex Free T4 1.63 uIU/mL (0.32-4.0)
== END 2024-06-26 12:45 | disposition home or self-care (01) ==
LOC: HO.HMGCLDS 12:44
PROVIDERS: PCP Nurse Practitioner Family; Visit Provider Nurse Practitioner Family
DX: Z00.00 Encounter for general adult medical examination without abnormal findings (principal); Z12.5 Encounter for screening for malignant neoplasm of prostate
CPT/HCPCS: 36415; 80053; 80061; 81001; 84153; 84443; 85025

== ENCOUNTER 2024-10-31 16:07 | Emergency (ER) | payer MEDICARE, MEDICAID, SELFPAY ==
[2024-10-31 16:31] VITALS: BP 126/63; PULSE 50; RESP 16; TEMP 36.2; O2SAT 96; BMI 30.9
[2024-10-31 17:41] LABS: Amphetamine Screen Urine Not Detected (Not Detect); Barbiturates, Urine Not Detected (Not Detect); Benzodiazepines Screen Urine Not Detected (Not Detect); Buprenorphine Scr Not Detected (Not Detect); Cannabinoid Screen Urine Not Detected (Not Detect); Cocaine Screen Urine Not Detected (Not Detect); Fentanyl, urine Not Detected (Not Detect); Methadone Screen, Urine Not Detected (Not Detect); Opiate Screen Urine Not Detected (Not Detect); Oxycodone Screen Urine Not Detected (Not Detect); Phencyclidine Screen Urine Not Detected (Not Detect)
--- NOTE | 2024-10-31 17:45 | ED.GENADULT ---
HPI - General Adult General Chief complaint: General Medical Stated complaint: drug screen Time Seen by Provider: 10/31/24 18:26 Source: patient and RN notes reviewed Mode of arrival: ambulatory Limitations: no limitations History of Present Illness ED Provider: Myranda Alexander PA-C HPI narrative: This is a 74-year-old male who presents emergency department for urine drug screen. Patient reports that his urine was tested today at work and states that he was told that Suboxone was in his system. He does not take Suboxone. He is hoping to have a retest today. He is feeling well, no current complaints. MD complaint: Urine drug screen Relieving factors: none Exacerbating factors: none Associated symptoms: denies other symptoms Treatments prior to arrival: none Related Data Home Medications ?Medication ?Instructions ?Recorded ?Confirmed aspirin 81 mg tablet,delayed 81 mg PO DAILY 05/21/20 05/30/24 release clopidogrel 75 mg tablet 1 tab PO DAILY 05/21/20 05/30/24 ezetimibe 10 mg tablet 1 tab PO DAILY 05/21/20 05/30/24 isosorbide mononitrate 30 mg 1 tab PO DAILY 05/21/20 05/30/24 tablet,extended release 24 hr rosuvastatin 20 mg tablet 1 tab PO BEDTIME 05/21/20 05/30/24 metoprolol succinate 200 mg 200 mg PO DAILY 09/16/20 05/30/24 tablet,extended release 24 hr amlodipine 2.5 mg tablet 2.5 mg PO BID 10/25/21 05/30/24 acetaminophen 325 mg tablet 500 mg PO Q6H PRN Pain 03/29/23 05/30/24 losartan 50 mg tablet 50 mg PO DAILY 12/26/23 05/30/24 nitroglycerin 0.4 mg sublingual 0.4 mg sublingual PRN 12/26/23 05/30/24 tablet dapagliflozin propanediol 10 mg 10 mg PO DAILY 05/22/24 05/30/24 tablet (Farxiga) furosemide 20 mg tablet 20 mg PO DAILY 05/22/24 05/30/24 Previous Rx's ?Medication ?Instructions ?Recorded omega-3 fatty acids 1,000 mg 2,000 mg (2 x 1,000 mg) PO BID 90 10/25/21 capsule days #360 caps omeprazole 20 mg capsule,delayed 20 mg PO DAILY 90 days #90 caps 03/28/24 release Allergies Allergy/AdvReac Type Severity Reaction Status Date / Time meperidine [Demerol] Allergy Unknown Nausea and Verified 10/31/24 16:35 Vomiting ivp dye Allergy Unknown redness Uncoded 10/31/24 16:35 and itching Review of Systems Review of Systems: Yes all other systems are reviewed and are negative [facility] Past Medical History Attestation statement: The following information was validated with the patient. Medical History NSTEMI (non-ST elevated myocardial infarction) STEMI (ST elevation myocardial infarction) BCC (basal cell carcinoma), ear Thoracic aortic aneurysm Ischemic cardiomyopathy Dilated cardiomyopathy ICD (implantable cardioverter-defibrillator) in place History of blood transfusion GERD (gastroesophageal reflux disease) Hx of decubitus ulcer Renal artery stenosis Ischemic cardiomyopathy with implantable cardioverter-defibrillator (ICD) Paroxysmal ventricular tachycardia Peripheral arterial disease On beta cole at home Elevated cholesterol PVD (peripheral vascular disease) Myocardial infarction CAD (coronary artery disease) Angina pectoris HTN (hypertension) Surgical History H/O skin graft Hx of endoscopy H/O cardiac catheterization History of heart artery stent History of renal stent Hx of gieuk-frsri-gphpgcf bypass Hx of colonoscopy Hx of CABG Family History Family History Father History of cancer Mother History of cancer Brother Substance use disorder Family/Other Substance use disorder Social History Social History Housing: House Do you presently have visiting nurse or other home services: No Alcohol intake: never Patient Tobacco Use Status: Former Tobacco user Years Smoked: 35 years ago e-Cigarette/Vaping Use: Never Used Second Hand Smoke Exposure: No Advance Directives: Yes Advance Directives Information Provided: Yes Advance Directives on File: No service: No Current occupational status: retired Cognitive needs: No Hearing needs: No Vision needs: Yes Physical Exam ED Vital Signs: Vital Signs - 24 hr 10/31/24 16:31 10/31/24 18:27 Temperature 97.2 F 97.2 F Pulse Rate 50 50 Respiratory Rate 16 16 Blood Pressure 126/63 126/63 Pulse Oximetry 96 96 Oxygen Delivery Method Room Air Room Air BMI result Body Mass Index 30.9 Const Other: General: Awake, alert, and oriented X3. No acute distress. HEENT: Normal inspection CVS: Normal heart rate and rhythm. Pulses normal. Respiratory: No respiratory distress Skin: Warm, dry, no rashes noted to exposed skin. Normal skin color. Normal skin turgor. Extremities: Normal to inspection Neuro: Oriented X 3. No motor deficit. No sensory deficit. Medical Decision Making Medical Decision Making [facility] Narrative: This is a 74-year-old male who presents emergency department for evaluation of urine drug screen. On arrival, vital signs within normal limits. He is speaking full sentences under no acute distress. Replete urine drug screen revealing no buprenorphine. He was given paper copy of this. He has no current complaints. He is feeling well. Patient stable for discharge Differential Diagnosis Differential Diagnoses: The differential diagnosis associated with the presentation includes Urine drug screen, anxiety, worried/well Lab Data [facility] Lab Attestation statement: I reviewed the patient's lab results. Negative buprenorphine Labs: Lab Results 10/31/24 Range/Units 17:17 Urine Opiates Screen Not Detected (Not Detect) Ur Buprenorphine Scrn Not Detected (Not Detect) ng/mL Ur Oxycodone Screen Not Detected (Not Detect) ng/mL Urine Methadone Screen Not Detected (Not Detect) ng/mL Urine Fentanyl Screen Not Detected (Not Detect) Ur Barbiturates Screen Not Detected (Not Detect) Ur Phencyclidine Scrn Not Detected (Not Detect) Ur Amphetamines Screen Not Detected (Not Detect) U Benzodiazepines Scrn Not Detected (Not Detect) Urine Cocaine Screen Not Detected (Not Detect) U Marijuana (THC) Screen Not Detected (Not Detect) Discharge Plan Discharge Clinical Impression: Encounter for drug screening Patient Disposition: Home, Self-Care Additional Instructions: You were seen in the emergency department today for urine drug screen. Your urine today did not show buprenorphine despite what the urine drug screen at work showed today. Follow-up with your primary care physician. If any new or worsening symptoms occur including but not limited to chest pain or shortness of breath, please seek emergent care Prescriptions: No Action omeprazole 20 mg capsule,delayed release(DR/EC) 20 mg PO DAILY 90 Days Qty: 90 1RF isosorbide mononitrate 30 mg tablet extended release 24 hr 1 tab PO DAILY clopidogrel 75 mg tablet 1 tab PO DAILY ezetimibe 10 mg tablet 1 tab PO DAILY rosuvastatin 20 mg tablet 1 tab PO BEDTIME aspirin [Aspir-81] 81 mg Tablet,Delayed Release (Dr/Ec) 81 mg PO DAILY acetaminophen 325 mg tablet 500 mg PO Q6H PRN (Reason: Pain) losartan 50 mg tablet 50 mg PO DAILY nitroglycerin 0.4 mg tablet, sublingual 0.4 mg sublingual PRN metoprolol succinate 200 mg tablet extended release 24 hr 200 mg PO DAILY amlodipine 2.5 mg tablet 2.5 mg PO BID Rx Instructions: 2 tabs po qam and 1 tab in the pm omega-3 fatty acids 1,000 mg capsule 2,000 mg PO BID 90 Days Qty: 360 1RF dapagliflozin propanediol [Farxiga] 10 mg tablet 10 mg PO DAILY furosemide 20 mg tablet 20 mg PO DAILY Interventions: ED Discharge Assessment Last Done: 10/31/24 18:27 Discharge Date/Time: 10/31/24 18:28 Print Language: Telugu
[2024-10-31 18:27] VITALS: BP 126/63; PULSE 50; RESP 16; TEMP 36.2; O2SAT 96
== END 2024-10-31 18:28 | disposition home or self-care (01) ==
PROVIDERS: Physician Assistant Medical; Emergency Provider Emergency Medicine; PCP Nurse Practitioner Family
DX: Z02.83 Encounter for blood-alcohol and blood-drug test (principal)
CPT/HCPCS: 80307; 99282

== ENCOUNTER 2024-11-19 08:56 | Outpatient (AMB) | payer MEDICARE, MEDICAID, SELFPAY ==
--- NOTE | 2024-11-19 08:58 | A.OFFPC_ITS ---
Vital Signs 11/19/24 09:01 Height 5 ft 9 in Weight 209 lb BMI 30.9 BP 112/62 Blood Pressure Location Lt brachial Position Sitting Pulse 60 Pulse Source Pulse Oximeter Pulse Oximetry (%) 96 Oxygen Delivery Method Room Air Intake Visit Reasons: 6m follow up Director Validation Required: No Accompanied by: Self / Same As Patient Allergies meperidine [Demerol] Allergy (Unknown, Verified 11/19/24 09:00) Nausea and Vomiting ivp dye Allergy (Unknown, Uncoded 10/31/24 16:35) redness and itching Tobacco use date assessed: 11/19/24 Fall risk assessment: 1 Fall in past year Last assessed Fall Risk: 11/19/24 Dental Screening Dental Screen Date: 11/19/24 Did you have a dental visit in the last 12 months?: Yes Did you have a dental problem in the last 6 months where you did not have access to dental care?: No Was dental information given to patient?: Patient has dentist HPI 6m follow up HPI Details Chief Complaint Post-discharge follow-up and assessment of current cardiac status. History of Present Illness The patient is a 74-year-old male presenting for a generalized follow-up post- hospital discharge. He initially sought care in the emergency room back in August for symptoms including diaphoresis and substernal chest pressure. A history of zxe-WQ-zvkevxelu myocardial infarction led to the decision for medical management due to extensive arterial disease. The recent hospital presentation alleviated with nitroglycerin and involved no new acute findings, as negative troponins and stable EKG and labs were reported. The patient's pre- existing condition includes a severely reduced ejection fraction, for which ongoing cardiology follow-up is maintained. Baseline issues include bilateral lower extremity edema and an ICD placement. Social History - Lives with a dog, indicating the impor tance of pet therapy for mental health. Health Maintenance Review of Systems - Cardiovascular: Reports substernal leonid st pressure and diaphoresis. - Respiratory: Reports lightheadedness a nd mild shortness of breath. -denies any RICE, blurred vision, dizzines s, N/V Physical Exam General: Cooperative, healthy appearing, comfortable, no acute distress and well developed Orientation: Patient oriented x3 Limitations: No limitations Head: Normal to inspection Ears: Hearing grossly normal bilaterally Nose: Normal external nose present Face and sinus: Normal facial exam Eyes: Appearance normal, both eyes and all related structures Neck: Normal visual inspection and Yes full ROM Respiratory: Normal respiratory effort and able to speak in complete sentences. Clear to auscultation bilaterally Cardiovascular: Heart was difficult to auscultate, S1 S2 GI: Normal to inspection. Soft to palpation and nontender Skin: No rashes or lesions noted Neuro: Patient oriented x3 Extremities: Edema, plus 1 bilaterally at lower extremities Results - Labs: Reported stable. - EKG: Reported stable. - Troponin levels: Negative. Plan I will obtain labs for cholesterol and regular food monitoring following the hospital discharge. The patient continues to see cardiology regularly due to his existing cardiac conditions, including NSTEMI, severely reduced ejection fraction, and ICD management. He remains on his adjusted medication regimen post-hospital stay and should schedule follow-up visits as needed. Pet therapy is encouraged for his mental health, and he will receive a supportive note. Baseline bilateral lower extremity edema will be monitored. Advised follow-up with cardiology in the upcoming weeks. Discussion Notes I discussed with the patient the stability of his condition following the recent hospital discharge, emphasizing the non-acute nature of his latest presentation, as evident by negative troponin levels and stable EKG. We reviewed the continuation of his current medical regimen and follow-up appointments with the cardiology team. I outlined the importance of pet therapy for his emotional health and provided a note to reinforce this. We will continue monitoring his bilateral lower extremity edema as it correlates with his baseline. The patient was informed about upcoming lab assessments for cholesterol management, and the need for continuity of care under cardiology supervision, considering his history of NSTEMI and existing severe LV dysfunction. Patient Instructions - Continue taking all prescribed medicat ions as directed. 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 - Incorporate pet therapy as advised for mental health support. - Ensure regular monitoring of your ICD during cardiology visits. - Report any new or worsening symptoms, such as increased breathlessness or chest pressure, immediately. - Follow a heart-healthy diet and keep t rack of cholesterol levels as recommended in your lab assessments. - Return for a follow-up in several week s as planned with your healthcare provider. [facility] Medical History NSTEMI (non-ST elevated myocardial infarction) STEMI (ST elevation myocardial infarction) BCC (basal cell carcinoma), ear Thoracic aortic aneurysm Ischemic cardiomyopathy Dilated cardiomyopathy ICD (implantable cardioverter-defibrillator) in place History of blood transfusion GERD (gastroesophageal reflux disease) Hx of decubitus ulcer Renal artery stenosis Ischemic cardiomyopathy with implantable cardioverter-defibrillator (ICD) Paroxysmal ventricular tachycardia Peripheral arterial disease On beta cole at home Elevated cholesterol PVD (peripheral vascular disease) Myocardial infarction CAD (coronary artery disease) Angina pectoris HTN (hypertension) Surgical History H/O skin graft Hx of endoscopy H/O cardiac catheterization History of heart artery stent History of renal stent Hx of gohpn-zpeni-tznmbdh bypass Hx of colonoscopy Hx of CABG Family History Father History of cancer Mother History of cancer Brother Substance use disorder Family/Other Substance use disorder Social History Housing: House Do you presently have visiting nurse or other home services: No Alcohol intake: never Patient Tobacco Use Status: Former Tobacco user Years Smoked: 35 years ago e-Cigarette/Vaping Use: Never Used Second Hand Smoke Exposure: No service: No Current occupational status: retired Cognitive needs: No Hearing needs: No Vision needs: Yes Questionnaire PHQ-9 Over the last 2 weeks, how often have you been bothered by any of the following problems? 1. Little interest or pleasure in doing things: not at all 2. Feeling down, depressed, or hopeless: not at all 3. Trouble falling or staying asleep, or sleeping too much: not at all 4. Feeling tired or having little energy: not at all 5. Poor appetite or overeating: not at all 6. Feeling bad about yourself - or that you are a failure or have let yourself or your family down: not at all 7. Trouble concentrating on things, such as reading the newspaper or watching television: not at all 8. Moving or speaking so slowly that other people could have noticed. Or the opposite - being so fidgety or restless that you have been moving around a lot more than usual: not at all 9. Thoughts that you would be better off or of hurting yourself in some way: not at all Total score: 0 Depression Screening Interpretation: Negative Depression Screening Done: Yes 05155 - PHQ-9 Billing: Yes Source: Developed by Drs. Torsten Schroeder, Ayaka Cam, Christopher Hinton and colleagues, with an educational neal from [employer]. Thrive Questionnaire Date Thrive assessed: 11/19/24 I am a: Patient What is your living situation today?: I have a steady place to live Within the past 12 months, did the food you bought not last and you didn't have the money to get more?: Never true Within the past 12 months, did you worry whether your food would run out before you got money to buy more?: Never true Do you have trouble paying for medicines?: No Do you have trouble getting transportation to medical appointments?: No Do you have trouble paying your heating and electricity bill?: No Do you have trouble taking care of your child, family member or friend?: No Do you have trouble with day-to-day activities such as bathing, preparing meals, shopping, managing finances, etc.?: Yes Are you currently unemployed and looking for a job?: No Are you interested in more education?: No Please select the resources that you would like help with: None Currently or been in a relationship where the following occur: No concerns reported THRIVE Score: 0 AUDIT C Alcohol Use Questionnaire (AUDIT-C) 1. How often do you have a drink containing alcohol?: Never 3. How often do you have six or more drinks on one occasion?: Never Total Score: 0 Score Reviewed/Action Taken: Yes SAMMIE-7 AMB Questionnaire SAMMIE-7 Date SAMMIE - 7 assessed: 11/19/24 Feeling nervous, anxious, or on edge: 2 = More than half the days Not being able to stop or control worryin = Several days Worrying too much about different things: 2 = More than half the days Trouble relaxin = More than half the days Being so restless that it is hard to sit still: 0 = Not at all Becoming easily annoyed or irritable: 0 = Not at all Feeling afraid as if something awful might happen: 0 = Not at all Total SAMMIE-7 score (0-4 normal; 5-9 mild; 10-14 moderate; 15-21 severe): 7 Source: Developed by Ayaka BurgosW. Tutu, Christopher Hinton and colleagues, with an educational neal from [employer]. SAMMIE-7 Assessment Billing SAMMIE-7 Assessment Tool: SAMMIE-7 Assessment 69494 Physical exam (Primary Care) Vital Signs: Last Vital Signs Pulse 60 11/19/24 09:01 BP 112/62 11/19/24 09:01 Pulse Ox 96 11/19/24 09:01 Oxygen Delivery Method Room Air 11/19/24 09:01 BMI result Body Mass Index 30.9 Tobacco/Smoking Status: Tobacco use Status Tobacco use date assessed 11/19/24 11/19/24 09:02 Patient Tobacco Use Status Former Tobacco user 11/19/24 08:58 e-Cigarette/Vaping Use Never Used 11/19/24 08:58 PHQ-9: PHQ-9 Score PHQ-9: Total score 0 11/19/24 09:02 Depression Screening Interpretation: Negative Thrive Assessment: Date of Thrive Assessment Date Thrive assessed 11/19/24 11/19/24 09:02 Currently or been in a relationship where the following occur: No concerns reported Coding Level of Care Code Est Pt Level 4 (00787) Diagnoses Chest pain R07.9 Diaphoresis R61 Additional Codes SAMMIE-7 Assessment Billing - SAMMIE-7 Assessment Tool: SAMMIE-7 Assessment 09749 ([id number]) PHQ-9 - 90234 - PHQ-9 Billing: Yes ([id number]) Assessment & Plan Assessment & Plan (1) Chest pain: Code(s): R07.9 - Chest pain, unspecified Category: Medical (2) Diaphoresis: Code(s): R61 - Generalized hyperhidrosis Category: Medical Plan . Orders: Orders UA CC w/rflx Micro + Cult Today R07.9 - Chest pain, unspecified Complete Blood Count Auto Diff Today R07.9 - Chest pain, unspecified Comprehensive [place]anchard. Panel Fast Today R07.9 - Chest pain, unspecified TSH reflex Free T4 Today R07.9 - Chest pain, unspecified Lipid Panel Today R07.9 - Chest pain, unspecified
[2024-11-19 09:01] VITALS: BP 112/62; PULSE 60; O2SAT 96; BMI 30.9
--- OUTSIDE RECORDS SUMMARY | 2024-11-19 09:34 | XMS_ITS | Encounter Summary ---
Author Organization [facility] Address [address] [place] [address] Care Team Providers Care Sheet Catcher Name Role Phone Yifan Delcid NP Primary Care Provider [phone] Encounter Details Date Type Department Care Team (Late st Contact Info) Description 11/15/2024 6:10 PM EDT Ancillary Procedure [facility] Cardiology [facility] [address] [facility] [address] [place] [id number] Social History Tobacco Use Types Packs/Day Years Used Date Smoking Tobacco: Former Cigarettes Smokeless Tobacco: Never Alcohol Use Standard Drinks/Week Comments Never 0 (1 standard drink = 0.6 oz pur e alcohol) Sex and Gender Information Value Date Recorded Sex Assigned at Not on file Legal Sex Male 7:23 PM EST Gender Identity Not on file Sexual Orientation Not on file documented as of this encounter Plan of Treatment Upcoming Encounters Date Type Department Care Team (Late st Contact Info) Description 05/08/2025 10:10 AM EDT Office Visit [facility] Cardiology [facility] [address] [place] [address] Tapan Simmons NP [facility] [address] [place] [address] 05/20/2025 9:30 AM EDT Ancillary Procedure [facility] [address] [facility] [address] [place] [phone] documented as of this encounter Procedures Procedure Name Priority Date/Time Associated Diagnosis Comments CARDIAC DEVICE CHECK- REMOTE- MURJ Routine 11/15/2024 6:06 PM EDT documented in this encounter Results * Cardiac device check - Remote- MURJ (11/15/2024 6:06 PM EDT) Date Time Interrogation Session [id number] CV DEVICE CHECK Type Interrogation Session Remote Scheduled CV DEVICE CHECK Implantable Pulse Generator Television And Radio Repairer BSX CV DEVICE CHECK Implantable Pulse Generator Type S-ICD CV DEVICE CHECK Implantable Pulse Generator Model A219 CV DEVICE CHECK Implantable Pulse Generator Serial Number [id number] CV DEVICE CHECK Implantable Pulse Generator Implant Date 20220824 CV DEVICE CHECK Battery Remaining Percentage 79.00 CV DEVICE CHECK Battery Status Beginning of Service CV DEVICE CHECK Therapy Statistic Recent Shocks Delivered 0 CV DEVICE CHECK Shock Measured Impedance 100 CV DEVICE CHECK Zone Setting Type Category Shock CV DEVICE CHECK Rate 250 CV DEVICE CHECK Therapies 80J CV DEVICE CHECK Zone Setting Status On CV DEVICE CHECK Zone ID 1 CV DEVICE CHECK Zone Setting Type Category Conditional CV DEVICE CHECK Rate 200 CV DEVICE CHECK Therapies 80J CV DEVICE CHECK Zone Setting Status On CV DEVICE CHECK Zone ID 2 CV DEVICE CHECK Date of Service 2024-05-25 CV DEVICE CHECK Anatomical Region Laterality Modality Device Interroga tion 05/15/2024 7:47 AM EDT Impressions 05/21/2024 8:45 AM EDT Normal Remote: No Events * Alerts or events: None * Battery: , * Electrode Impedance status reviewed * Presenting Rhythm: was reviewed * Programmed parameters reviewed * No significant changes noted Patient Triggered *S-ICD * Patient triggered event with symptom(s) palpitations *Normal Device Follow-up with no arrhythmia noted Additional Notes: PVC's noted on EGM ?? Normal Remote: No Events * Alerts or events: None * Battery: Battery is at 81%, * Electrode Impedance status reviewed * Presenting Rhythm: was reviewed * Programmed parameters reviewed * No significant changes noted Normal Remote: No Events * Alerts or events: None * Battery: Battery is at 79%, * Electrode Impedance status reviewed * Presenting Rhythm: was reviewed * Programmed parameters reviewed * No significant changes noted Narrative Procedure Note Yifan Morgan MD - 11/15/2024 IMPRESSION: Normal Remote: No Events * Alerts or events: None * Battery: , * Electrode Impedance status reviewed * Presenting Rhythm: was reviewed * Programmed parameters reviewed * No significant changes noted Patient Triggered *S-ICD * Patient triggered event with symptom(s) palpitations *Normal Device Follow-up with no arrhythmia noted Additional Notes: PVC's noted on EGM Normal Remote: No Events * Alerts or events: None * Battery: Battery is at 81%, * Electrode Impedance status reviewed * Presenting Rhythm: was reviewed * Programmed parameters reviewed * No significant changes noted Normal Remote: No Events * Alerts or events: None * Battery: Battery is at 79%, * Electrode Impedance status reviewed * Presenting Rhythm: was reviewed * Programmed parameters reviewed * No significant changes noted Yifan Morgan MD CV IMPLANTABLE CARDIAC DEVICE PROCEDURES Final Result documented in this encounter Visit Diagnoses Not on filedocumented in this encounter Care Teams Sheet Catcher Relationship Specialty Start Date End Date Yifan Delcid NP [address] [place], [place] PCP - General 03/10/21 documented as of this encounter
--- OUTSIDE RECORDS SUMMARY | 2024-11-19 09:34 | XMS_ITS | Clinical Summary ---
Author Organization [facility] x.ai [facility] Address [address] [facility] [place] [address] Phone Care Team Providers Care Juice Weigher Name Role Phone Yifan Delcid NP Primary Care Provider Allergies Active Allergy Reactions Criticality Noted Date Comments Iodinated Contrast Media 03/05/2021 Meperidine Hives 03/05/2021 Medications acetaminophen (TYLENOL) 500 mg tablet Take 500 mg by mouth 2 times daily as needed. Active aspirin 81 mg chewable tablet Take 81 mg by mouth daily. Active nitroglycerin (NITROSTAT) 0.[address] 1 tablet under the tongue every 5 minutes as needed for Chest pain. 11/24/19 24 Active omeprazole (PRILOSEC) 20 mg tablet,delayed release (DR/EC) Take 1 tablet by mouth daily. Active omega-3 (FISH OIL) 360-1,200 mg capsule Take by mouth 2 times daily. Active furosemide (LASIX) 20 mg tablet Take 1 Tablet by mouth daily. Wheezing or SOB - Oral 04/10/20 24 Active dapagliflozin propanediol (FARXIGA) 10 mg tablet Take by mouth. Take 1 Tablet by mouth daily. - Oral 04/10/20 24 Active cetirizine (ZyrTEC) 10 mg tablet Take 10 mg by mouth. 1 tablet by mouth before CT scan - Oral Active amLODIPine (NORVASC) 5 mg tablet Take 1 tablet (5 mg total) by mouth 2 (two) times a day. 180 tablet 1 09/03/19 25 Active ranolazine (Ranexa) 1,000 mg 12 hr tablet Take 1 tablet (1,000 mg total) by mouth 2 (two) times a day. Do not crush, chew, or split. 180 tablet 1 09/03/19 25 Active clopidogreL (PLAVIX) 75 mg tablet TAKE 1 TABLET BY MOUTH DAILY 90 tablet 2 11/19/19 25 Active ezetimibe (ZETIA) 10 mg tablet TAKE 1 TABLET BY MOUTH DAILY 90 tablet 2 11/19/19 25 Active losartan (COZAAR) 50 mg tablet TAKE 1 TABLET BY MOUTH DAILY 90 tablet 2 11/19/19 25 Active rosuvastatin (CRESTOR) 20 mg tablet TAKE 1 TABLET BY MOUTH DAILY 90 tablet 2 11/19/19 25 Active isosorbide mononitrate (IMDUR) 30 mg 24 hr tablet TAKE 1 TABLET BY MOUTH DAILY 90 tablet 2 11/19/19 25 Active metoprolol succinate (TOPROL-XL) 100 mg 24 hr tablet TAKE 1 TABLET BY MOUTH TWICE DAILY / DO NOT CRUSH OR CHEW 180 tablet 2 11/19/19 25 Active clopidogreL (PLAVIX) 75 mg tablet Take 1 Tablet by mouth daily. 11/02/19 24 025 Discontinued ezetimibe (ZETIA) 10 mg tablet Take 1 Tablet by mouth daily for 360 days. 11/02/19 24 025 Discontinued isosorbide mononitrate (IMDUR) 30 mg 24 hr tablet Take 1 Tablet by mouth daily. 11/02/19 24 025 Discontinued losartan (COZAAR) 50 mg tablet Take 1 Tablet by mouth daily for 360 days. 11/02/19 24 025 Discontinued rosuvastatin (CRESTOR) 20 mg tablet Take 1 Tablet by mouth daily. 11/02/19 24 025 Discontinued metoprolol succinate (Toprol XL) 100 mg 24 hr tablet Take 1 tablet (100 mg total) by mouth 2 (two) times a day. Do not crush or chew. 180 tablet 1 09/03/19 25 025 Discontinued Active Problems Problem Noted Date Diagnosed Date ICD (implantable cardioverter-defibrillator) in place 07/05/2024 Assessment & Plan (07/07/2024 10:03 AM EST): Subcutaneous [employer] ICD in place. Will continue to monitor through [facility] device clinic. Left ventricular aneurysm 08/12/2022 Overview (07/07/2024): chronic left ventricular aneurysm secondary to a inferolateral basal inferior myocardial infarction Thoracic aortic aneurysm without rupture 021 CAD (coronary artery disease) 03/15/2021 Overview (07/05/2024): 1985 - sustained NH 2011 - CABG with PAYTON to LAD, radial to OM, SVG to diagonal, SVG to distal RCA 2019 - repeat catheterization with patent grafts with 70% stenosis in LAD beyond insertion of the PAYTON 2023 - NSTEMI repeat angiogram showed patent grafts, but critical, progressive disease of the distal LAD beyond the insertion of the PAYTON graft - medically managed due to poor revascularization options Assessment & Plan (07/07/2024 10:03 AM EST): Catheterization showed distal LAD disease non-amenable to revascularization - medical therapy recommended. Echocardiogram from June 2024 showed profound LV dysfunction. He is having evening anginal symptoms and his blood pressure remains soft. Per Dr. Agarwal's recommendations, I will start Ranexa 500mg twice daily. I have also asked him to monitor his evening blood pressures as they may be climbing during this time of the day and more receptive to other antianginals. If symptoms worsen, he will contact the office. Continue with Aspirin, clopidogrel, rosuvastatin, ezetimibe, amlodipine, losartan, dapagliflozin, isosorbide and metoprolol. We discussed risk reduction through lifestyle choices including healthy diet, routine exercise and weight management. Orders: ranolazine (Ranexa) 500 mg 12 hr tablet; Take 1 tablet (500 mg total) by mouth 2 (two) times a day. Do not crush, chew, or split. Peripheral artery disease 03/15/2021 Overview (07/07/2024): Followed by Dr. Mock at [facility] occluded left axillofemoral bypass and femoral to femoral bypass as well as occluded infrarenal aorta with occlusions to the iliac and femoral arteries Utilized motorized wheelchair due to severely limiting bilateral calf and thigh claudication Assessment & Plan (07/07/2024 10:03 AM EST): Stable symptoms followed in [facility]. Continue with Aspirin, clopidogrel, rosuvastatin, ezetimibe, amlodipine, losartan, dapagliflozin, isosorbide and metoprolol. We discussed risk reduction through lifestyle choices including healthy diet, routine exercise and weight management. Hypertension 03/05/2021 Assessment & Plan (07/07/2024 10:03 AM EST): Soft blood pressures. Continue with amlodipine, losartan, dapagliflozin, isosorbide and metoprolol. Orders: ECG 12 lead Ischemic cardiomyopathy 03/05/2021 Overview (07/05/2024): 2020 - echocardiogram showed LVEF 40-45% 2023 - echocardiogram showed LVEF 15% Assessment & Plan (07/07/2024 10:03 AM EST): Echocardiogram from June 2024 showed profound LV dysfunction LVEF 15-20%. Aside from lower extremity edema, he appears compensated on exam. Edema likely secondary to venous insufficiency. Continue with furosemide, losartan, dapagliflozin, isosorbide and metoprolol. We reviewed heart failure management including low-sodium diet, symptom surveillance, daily weights and medication compliance. Will consider repeat echocardiogram in next few months to assess effect of LV dysfunction. Subcutaneous [employer] ICD in place. Mixed hyperlipidemia 03/05/2021 Ventricular tachycardia 03/05/2021 Overview (07/05/2024): Due to ischemic heart disease and profound LV dysfunction Status post [facility] [employer] single-chamber ICD in 2011August 2022 successful implantation of a subcutaneous [employer] ICD by Dr. Morgan at [facility] - this was done due to ventricular lead issues and poor access in setting of severe PAD Assessment & Plan (07/07/2024 10:03 AM EST): No ventricular arrhythmias detected thus far. Subcutaneous [employer] ICD in place. Continue with Metoprolol. Will continue to monitor through [facility] device clinic. Renovascular hypertension 03/05/2021 Encounters Date Type Department Care Team Description 11/15/2024 6:10 PM EDT Ancillary Procedure [facility] [address] [place] [id number] 10/31/2024 Telephone [facility] [address] [place] [address] Tapan Simmons NP Medication Problem 10/29/2024 10:10 AM EDT Office Visit [facility] [address] [place] [address] Tapan Simmons NP 10/07/2024 Telephone [facility] [address] [place] [address] Tapan Simmons NP Dizziness 09/03/2024 Telephone [facility] [address] [place] [address] Tapan Simmons NP Med Refill from Last 3 Months Surgical History Surgery Date Site/Laterality Comments CORONARY ARTERY BYPASS GRAFT CARDIAC CATH PROCEDURE 08/14/2019 - 08/13/2020 CAROTID ENDARTERECTOMY Left Medical History Medical History Date Comments Benign essential HTN 2020 CAD (coronary artery disease) 2020 History of coronary artery bypass graft Ischemic cardiomyopathy Mixed hyperlipidemia 2020 PAD (peripheral artery disease) [facility] Renovascular hypertension 2020 Social History Tobacco Use Types Packs/Day Years Used Date Smoking Tobacco: Former Cigarettes Smokeless Tobacco: Never Tobacco Cessation:Counseling Given: Not Answered Alcohol Use Standard Drinks/Week Comments Never 0 (1 standard drink = 0.6 oz pur e alcohol) Sex and Gender Information Value Date Recorded Sex Assigned at Not on file Legal Sex Male 7:23 PM EST Gender Identity Not on file Sexual Orientation Not on file Obstetrics History Last Filed Vital Signs Vital Sign Reading Time Taken Comments Blood Pressure 88/60 10/29/2024 10:12 AM EDT Pulse 48 10/29/2024 10:12 AM EDT Temperature - - Respiratory Rate - - Oxygen Saturation 96% 10/29/2024 10:12 AM EDT Inhaled Oxygen Concentration - - Weight 94.8 kg (209 lb) 10/29/2024 10:12 AM EDT Height 175.3 cm (5' 9 ) 10/29/2024 10:12 AM EDT Body Mass Index 30.86 10/29/2024 10:12 AM EDT Plan of Treatment Upcoming Encounters Date Type Department Care Team (Late st Contact Info) Description 05/08/2025 10:10 AM EDT Office Visit [facility] [address] [place] [id number] Tapan Simmons NP [address] [place] [address] [address] [place] [address] 05/20/2025 9:30 AM EDT Ancillary Procedure [facility] [address] [place] [phone] Health Maintenance Due Date Last Done Comments Zoster Vaccines (1 of 2) 1970 RSV Immunization Adult Patients (1 - Risk 60-74 years 1-dose series) 2011 Abdominal Aortic Aneurysm (AAA) Screen 07/23/2022 Colorectal Cancer Screening: Colonoscopy 07/23/2022 Depression Screening 07/23/2022 Falls Risk Assessment 07/23/2022 Hepatitis C Screening 07/23/2022 Medicare Annual Wellness Visit 07/23/2022 Social Influencers of Health Screening 07/23/2022 Hypertension/CHF/CAD Annual BMP Blood Test 07/24/2022 07/17/2020, 07/17/2020, 12/04/2019 Cholesterol Screening (Lipid Panel) 12/03/2024 12/04/2019, 12/04/2019 DTaP,Tdap,and Td Vaccines (2 - Td or Tdap) 03/12/2028 03/12/2018 Hepatitis B Vaccines Completed 08/04/2014, 02/01/2014, 01/02/2014 Hepatitis A Vaccines Aged Out 06/29/2016, 12/23/19 16 No longer eligible based on patient's age to complete this topic Pneumococcal Vaccine: 50+ Years Completed 09/16/2020, 09/02/2019 COVID-19 Vaccine Completed 04/17/2024, , 05/19/2022, Additional history exists Influenza Vaccine Completed 04/17/2024, , 06/10/2022, Additional history exists HIB Vaccines Aged Out No longer eligi ble based on patient's age to complete this topic HPV Vaccines Aged Out No longer eligi ble based on patient's age to complete this topic IPV Vaccines Aged Out No longer eligi ble based on patient's age to complete this topic MMR Vaccines Aged Out No longer eligi ble based on patient's age to complete this topic Meningococcal ACWY Vaccine Aged Out N o longer eligible based on patient's age to complete this topic Meningococcal B Vaccine Aged Out No l onger eligible based on patient's age to complete this topic RSV Immunization Patients Under 20 months Aged Out No longer eligible based on patient's age to complete this topic Varicella Vaccines Aged Out No longer eligible based on patient's age to complete this topic Medical Devices Implanted Type Area [employer] Director Device Identifier Shelf Expiration Date Model / Serial / Lot [id number] Implanted:08/14 (Quantity not on file) Cardiac ICD [employer] MGMT [id number] / [id number] / Procedures Procedure Name Priority Date/Time Associated Diagnosis Comments CARDIAC DEVICE CHECK- REMOTE- MURJ Routine 11/15/2024 6:06 PM EDT ANNUAL BMP BLOOD TEST Routine 07/17/2020 LIPID PANEL Routine 12/04/2019 from Last 3 Months or Most Recently Relevant to Health Maintenance Results * Cardiac device check - Remote- MURJ (11/15/2024 6:06 PM EDT) Date Time Interrogation Session [id number] CV DEVICE CHECK Type Interrogation Session Remote Scheduled CV DEVICE CHECK Implantable Pulse Generator [employer] Director BSX CV DEVICE CHECK Implantable Pulse Generator Type S-ICD CV DEVICE CHECK Implantable Pulse Generator Model A219 CV DEVICE CHECK Implantable Pulse Generator Serial Number [id number] CV DEVICE CHECK Implantable Pulse Generator Implant [...] parameters reviewed * No significant changes noted us Yifan Morgan MD CV IMPLANTABLE CARDIAC DEVICE PROCEDURES Final Result * Annual BMP Blood Test (07/17/2020) Annual BMP Blood Test Abstracted us Historical Provider HEALTH MAINTENANCE Final Result * Lipid panel (12/04/2019) Triglycerides 0 mg/dL Comment:no interpretation Cholesterol 0 mg/dL Comment:no interpretation HDL 0 mg/dL Comment:no interpretation LDL Cholesterol 0 mg/dL Comment:no interpretation Blood Venous blood specimen / Unknown Historical Provider LAB BLOOD ORDERABLES Maryanne l Result from Last 3 Months or Most Recently Relevant to Health Maintenance Insurance [employer] MEDICARE ADVANTAGE [place]ICAID - [place] Care Teams Juice Weigher Relationship Specialty Start Date End Date Yifan Delcid NP [address], [place] PCP - General 03/10/21
== END 2024-11-19 09:28 | disposition home or self-care (01) ==
LOC: HO.HMCC 08:56
PROVIDERS: PCP Nurse Practitioner Family; Visit Provider Nurse Practitioner Family
DX: R07.9 Chest pain, unspecified (principal); R61 Generalized hyperhidrosis

== ENCOUNTER → 2024-11-19 08:56 | Outpatient (BNVA) | payer MEDICARE, MEDICAID, SELFPAY | PROVIDERS: PCP Nurse Practitioner Family; Visit Provider Nurse Practitioner Family | DX: I25.2 Old myocardial infarction (principal); R07.9 Chest pain, unspecified; R61 Generalized hyperhidrosis | CPT/HCPCS: 96127; 99212 ==

== ENCOUNTER 2024-12-02 07:56 | Outpatient (REF) | payer MEDICARE, MEDICAID, SELFPAY ==
--- OUTSIDE RECORDS SUMMARY | 2024-12-02 07:59 | XMS_ITS | Encounter Summary ---
Author Organization [facility] Address [address] [place] [address] Care Team Providers Care Resident Services Supervisor Name Role Phone Latrice Delcid NP Primary Care Provider [phone] Reason for Visit * Reason Comments Follow-up Encounter Details Date Type Department Care Team (Latest Contact Info) Description 10/29/2024 10:10 AM EDT Office Visit [facility] [address] [place] [address] Tapan Simmons NP [address] [place] [address] [address] [place] [address] Coronary artery disease involving chehalis coronary artery of chehalis heart with other form of angina pectoris (CMS/HCC V24) (Primary Dx); Ischemic cardiomyopathy; Ventricular tachycardia (CMS/HCC V24, CMS/HCC V28); Hypertension, unspecified type; ICD (implantable cardioverter-defibrilla tor) in place; Peripheral artery disease (CMS/HCC V24); Mixed hyperlipidemia Social History Tobacco Use Types Packs/Day Years [...] on file documented as of this encounter Last Filed Vital Signs Vital Sign Reading [...] Mass Index 30.86 10/29/2024 10:12 AM EDT documented in this encounter Progress Notes * Tapan Simmons NP - 10/29/2024 10:10 AM EDTAssociated Problem(s): Hypertension Soft blood pressures. Continue with amlodipine, losartan, dapagliflozin, isosorbide and metoprolol. * Tapan Simmons NP - 10/29/2024 10:10 AM EDTAssociated Problem(s): CAD (coronary artery disease) Catheterization showed distal LAD disease non-amenable to revascularization - medical therapy recommended. Echocardiogram from June 2024 showed profound LV dysfunction. He is having evening anginal symptoms and his blood pressure remains soft. Phe responded well to Ranexa 500mg twice daily withno further angina. Continue with Aspirin, clopidogrel, rosuvastatin, ezetimibe, amlodipine, losartan, dapagliflozin, isosorbide and metoprolol. We discussed risk reduction through lifestyle choices including healthy diet, routine exercise and weight management. * Tapan Simmons NP - 10/29/2024 10:10 AM EDTAssociated Problem(s): Ischemic cardiomyopathy Echocardiogram from June 2024 showed profound LV [...] to assess effect of LV dysfunction. Subcutaneous [employer] ICD in place. * Tapan Simmons NP - 10/29/2024 10:10 AM EDTAssociated Problem(s): Ventricular tachycardia (CMS/HCC V24, CMS/HCC V28) No ventricular arrhythmias detected thus far. Subcutaneous [employer] ICD in place. Continuewith Metoprolol. Will continue to monitor through [facility]. * Tapan Simmons NP - 10/29/2024 10:10 AM EDTAssociated Problem(s): Peripheral artery disease (CMS/HCC V24) Stable symptoms followed in [facility]. Continue with Aspirin, clopidogrel, rosuvastatin, ezetimibe, amlodipine, losartan, dapagliflozin, isosorbide and metoprolol. We discussed risk reductionthrough lifestyle choices including healthy diet, routine exercise and weight management. * Tapan Simmons NP - 10/29/2024 10:10 AM EDTAssociated Problem(s): ICD (implantable cardioverter-defibrillator) in place Subcutaneous [employer] ICD in place. Will continue to monitor through [facility]. * Tapan Simmons NP - 10/29/2024 10:10 AM EDTAssociated Problem(s): Mixed hyperlipidemia November 2019 - LDL 32. Will need to update lipid panel at next routine draw. * Tapan Simmons NP - 10/29/2024 10:10 AM EDT Images from the original note were not included. [facility] PRIMARY SUPERINTENDENT POWER: Latrice Agarwal MD PCP: LATRICE DELCID NP HPI: Mr. Corado is a 74-year-old male with past medical history of diffuse atherosclerotic disease with amyocardial infarction at age 35, status post coronary artery bypass grafting in 2011 with PAYTON to LAD, radial to OM, SVG to diagonal and SVG to distal RCA, subsequent catheterizations with medical therapy recommended for critical progressive calcified disease of the distal LAD beyond the insertion of the PAYTON graft, ischemic cardiomyopathy with EF as low as to 15% responding to GDMT, HFrEF, history of ventricular tachycardia status post [employer] single-chamber ICD implantation, severe peripheral vascular disease followed at [facility] with known occluded left axillofemoral bypass and femoral to femoral bypass as well as occluded infrarenal aorta with occlusions of iliac and femoral arteries manifesting as severe exertional claudication, hypertension, hyperlipidemia and obesity. Today he presents for routine office follow-up. He had been seen previously by myself in June 2024. He was having mild evening angina Ranexa was started. Today he reports symptoms have resolved and he feels well. At times he gets lightheaded but generally he is feeling well. No further chest pain, palpitations, lightheadedness, presyncope or syncope. No orthopnea, paroxysmal nocturnal dyspnea, abdominal distention, cough or abrupt increases in weight. The patient reports adherence with their medications. ACTIVE MEDICATIONS: Outpatient Medications Marked as Taking for the 10/29/24 encounter (Office Visit) with Tapan Simmons NP Medication Sig Dispense Refill acetaminophen (TYLENOL) 500 mg tablet Take 500 mg by mouth 2 times daily as needed. amLODIPine (NORVASC) 5 mg tablet Take 1 tablet (5 mg total) by mouth 2 (two) times a day. 180 tablet 1 aspirin 81 mg chewable tablet Take 81 mg by mouth daily. cetirizine (ZyrTEC) 10 mg tablet Take 10 mg by mouth. 1 tablet by mouth before CT scan - Oral dapagliflozin propanediol (FARXIGA) 10 mg tablet Take by mouth. Take 1 Tablet by mouth daily. - Oral furosemide (LASIX) 20 mg tablet Take 1 Tablet by mouth daily. Wheezing or SOB - Oral nitroglycerin (NITROSTAT) 0.[address] 1 tablet under the tongue every 5 minutes as needed for Chest pain. omega-3 (FISH OIL) 360-1,200 mg capsule Take by mouth 2 times daily. omeprazole (PRILOSEC) 20 mg tablet,delayed release (DR/EC) Take 1 tablet by mouth daily. ranolazine (Ranexa) 1,000 mg 12 hr tablet Take 1 tablet (1,000 mg total) by mouth 2 (two) times a day. Do not crush, chew, or split. 180 tablet 1 [DISCONTINUED] clopidogreL (PLAVIX) 75 mg tablet Take 1 Tablet by mouth daily. [DISCONTINUED] isosorbide mononitrate (IMDUR) 30 mg 24 hr tablet Take 1 Tablet by mouth daily. [DISCONTINUED] metoprolol succinate (Toprol XL) 100 mg 24 hr tablet Take 1 tablet (100 mg total) bymouth 2 (two) times a day. Do not crush or chew. 180 tablet 1 [DISCONTINUED] rosuvastatin (CRESTOR) 20 mg tablet Take 1 Tablet by mouth daily. PAST MEDICAL HISTORY: Patient Active Problem List Diagnosis Date Noted Date Diagnosed ICD (implantable cardioverter-defibrillator) in place 07/05/2024 Left ventricular aneurysm 08/12/2022 chronic left ventricular aneurysm secondary to a inferolateral basal inferior myocardial infarction Thoracic aortic aneurysm without rupture ([facility] V24) 05/12/2021 CAD (coronary artery disease) 03/15/2021 1986 - sustained [place] 2011 - CABG with PAYTON to LAD, [...] medically managed due to poor revascularization options Peripheral artery disease ([facility] V24) 03/15/[address] Mock at [facility] occluded left axillofemoral bypass and femoral to femoral bypass as well as occluded infrarenal aorta with occlusions to the iliac and femoral arteries Utilized motorized wheelchair due to severely limiting bilateral calf and thigh claudication Hypertension 03/05/2021 Ischemic cardiomyopathy 03/05/20212020 - echocardiogram showed LVEF 40-45% 2023 - echocardiogram showed LVEF 15% Mixed hyperlipidemia 03/05/2021 Ventricular tachycardia ([facility] V24, [facility] V28) 03/05/2021 Due to ischemic heart disease and profound LV dysfunction Status post [employer] single-chamber ICD in 2011August 2022 successful implantation of a subcutaneous [employer] ICD by Dr. Morgan at [facility] - this was done due to ventricular lead issues and poor access in setting of severePAD Renovascular hypertension 03/05/2021 Resolved Problems No resolved problems to display. ALLERGIES: Allergies Allergen Reactions Iodinated Contrast Media Meperidine Hives SOCIAL HISTORY: Social History Tobacco Use Smoking status: Former Current packs/day: 1.00 Types: Cigarettes Smokeless tobacco: Never Substance Use Topics Alcohol use: Never PHYSICAL EXAM: Vitals: 10/29/24 1012 BP: 88/60 BP Location: Right arm Patient Position: Sitting BP Cuff Size: Adult Pulse: (!) 48 SpO2: 96% Weight: 94.8 kg (209 lb) Height: 1.753 m (69 ) Physical Exam Constitutional: General: He is not in acute distress. Appearance: He is obese. HENT: Head: Normocephalic and atraumatic. Right Ear: External ear normal. Left Ear: External ear normal. Nose: Nose normal. Mouth/Throat: Mouth: Mucous membranes are moist. Pharynx: No oropharyngeal exudate or posterior oropharyngeal erythema. Eyes: General: No scleral icterus. Extraocular Movements: Extraocular movements intact. Conjunctiva/sclera: Conjunctivae normal. Pupils: Pupils are equal, round, and reactive to light. Neck: Vascular: No carotid bruit, hepatojugular reflux or JVD. Cardiovascular: Rate and Rhythm: Normal rate and regular rhythm. Pulses: Normal pulses. Heart sounds: Normal heart sounds. No murmur heard. No friction rub. No gallop. Pulmonary: Effort: Pulmonary effort is normal. Breath sounds: Normal breath sounds. Chest: Chest wall: No tenderness. Abdominal: General: Bowel sounds are normal. There is no distension. Palpations: Abdomen is soft. Tenderness: There is no abdominal tenderness. Musculoskeletal: Cervical back: Neck supple. Right lower leg: No edema. Left lower leg: No edema. Skin: General: Skin is warm and dry. Neurological: General: No focal deficit present. Mental Status: He is alert and oriented to person, place, and time. Comments: Unable to assess gait - here in motorized scooter Psychiatric: Mood and Affect: Mood normal. Behavior: Behavior normal. EKG: Encounter Date: 06/26/24 ECG 12 lead Result Value Ventricular Rate ECG 51 Atrial Rate 51 P-R Interval 218 QRS Duration 134 Q-T Interval 492 QTc 453 P Wave [place] 10 R [place] 41 T [place] 146 ECG Interpretation Sinus bradycardia with 1st degree A-V block with occasional Premature ventricular complexes Non-specific intra-ventricular conduction block T wave abnormality, consider lateral ischemia Abnormal ECG When compared with ECG of 25-AUG-2022 08:16, Premature ventricular complexes are now Present T wave inversion more evident in Lateral leads Confirmed by LOU KNOX ([id number]) on 06/26/2024 11:17:54 AM *Note: Due to a large number of results and/or encounters for the requested time period, some results have not been displayed. A complete set of results can be found in Results Review. TESTING: Labs available were reviewed. ASSESSMENT/PLAN: Assessment & Plan Coronary artery disease involving chehalis coronary artery of chehalis heart with other form of angina pectoris ([facility] V24) Catheterization showed distal LAD disease non-amenable to revascularization - medical therapy recommended. Echocardiogram from June 2024 showed profound LV dysfunction. He is having evening anginal symptoms and his blood pressure remains soft. Phe responded well to Ranexa 500mg twice daily withno further angina. Continue with Aspirin, clopidogrel, rosuvastatin, ezetimibe, amlodipine, losartan, dapagliflozin, isosorbide and metoprolol. We discussed risk reduction through lifestyle choices including healthy diet, routine exercise and weight management. Ischemic cardiomyopathy Echocardiogram from June 2024 showed profound LV [...] to assess effect of LV dysfunction. Subcutaneous [employer] ICD in place. Ventricular tachycardia (CMS/HCC V24, CMS/HCC V28) No ventricular arrhythmias detected thus far. Subcutaneous [employer] ICD in place. Continuewith Metoprolol. Will continue to monitor through [facility]. Hypertension, unspecified type Soft blood pressures. Continue with amlodipine, losartan, dapagliflozin, isosorbide and metoprolol. ICD (implantable cardioverter-defibrillator) in place Subcutaneous [employer] ICD in place. Will continue to monitor through [facility]. Peripheral artery disease (CMS/HCC V24) Stable symptoms followed in [facility]. Continue with Aspirin, clopidogrel, rosuvastatin, ezetimibe, amlodipine, losartan, dapagliflozin, isosorbide and metoprolol. We discussed risk reductionthrough lifestyle choices including healthy diet, routine exercise and weight management. Mixed hyperlipidemia November 2019 - LDL 32. Will need to update lipid panel at next routine draw. Thank you for allowing us to participate in the care of this patient. The patient will follow up insix months with myself, sooner PRN. As per AHA guidelines and previously established plan of care by Dr. Latrice Agarwal MD, we discussed the following today: 1. Coronary artery disease involving chehalis coronary artery of chehalis heart with other form of angina pectoris (CMS/HCC V24) 2. Ischemic cardiomyopathy 3. Ventricular tachycardia (CMS/HCC V24, CMS/HCC V28) 4. Hypertension, unspecified type 5. ICD (implantable cardioverter-defibrillator) in place 6. Peripheral artery disease (CMS/HCC V24) 7. Mixed hyperlipidemia [facility] Cosigned by Shade Michelle MD at 11/28/2024 1:33 PM EDT documented in this encounter Plan of Treatment Upcoming Encounters Date Type Department Care Team (Late st Contact Info) Description 05/08/2025 10:10 AM EDT Office Visit [facility] [address] [place] [address] Tapan Simmons NP [address] [place] [address] [address] [place] [address] 05/20/2025 9:30 AM EDT Ancillary Procedure [facility] [address] [place] [id number] documented as of this encounter Visit Diagnoses Diagnosis Coronary artery disease involving chehalis coronary artery of chehalis heart with other form of angina pectoris (CMS/HCC V24)- Primary Ischemic cardiomyopathy Other specified forms of chronic ischemic heart disease Ventricular tachycardia (CMS/HCC V24, CMS/HCC V28) Paroxysmal ventricular tachycardia Hypertension, unspecified type ICD (implantable cardioverter-defibrillator) in place Peripheral artery disease ([facility] V24) Mixed hyperlipidemia Encounter for adjustment or management of cardiac device documented in this encounter Care Teams Resident Services Supervisor Relationship Specialty Start Date End Date Latrice Delcid NP [address] [place], [place] PCP - General 03/10/21 documented as of this encounter
--- OUTSIDE RECORDS SUMMARY | 2024-12-02 07:59 | XMS_ITS | Clinical Summary ---
Author Organization [facility] Pulse [address] [facility] Address [address] [facility] [place] [address] Phone Care Team Providers Care Open Shank Coverer Name Role Phone Yifan Delcid NP Primary Care Provider [phone] Allergies Active Allergy Reactions Criticality Noted Date [...] cardioverter-defibrillator) in place 07/05/2024 Assessment & Plan (11/28/2024 12:51 PM EDT): Subcutaneous [employer] ICD in place. Will continue to monitor through [facility]. Assessment & Plan (07/07/2024 10:03 AM EST): Subcutaneous [employer] ICD in place. Will continue to monitor through [facility] device clinic. Left ventricular aneurysm 08/12/2022 Overview (07/07/2024): chronic left ventricular aneurysm secondary to a inferolateral basal inferior myocardial infarction Thoracic aortic aneurysm without rupture (CMS/HC C V24) 05/12/2021 CAD (coronary artery disease) 03/15/2021 Overview (07/05/2024): 1985 - sustained MO 2011 - CABG with PAYTON to LAD, [...] to poor revascularization options Assessment & Plan (11/28/2024 12:51 PM EDT): Catheterization showed distal LAD disease non-amenable to revascularization - medical therapy recommended. Echocardiogram from June 2024 showed profound LV dysfunction. He is having evening anginal symptoms and his blood pressure remains soft. Phe responded well to Ranexa 500mg twice daily with no further angina. Continue with Aspirin, clopidogrel, rosuvastatin, ezetimibe, amlodipine, losartan, dapagliflozin, isosorbide and metoprolol. We discussed risk reduction through lifestyle choices including healthy diet, routine exercise and weight management. Assessment & Plan (07/07/2024 10:03 AM EST): [...] crush, chew, or split. Peripheral artery disease ([facility] V24) 03/15/20 Overview (07/07/2024): Followed by Dr. Mock at [facility] occluded left axillofemoral bypass and femoral to femoral bypass as well as occluded infrarenal aorta with occlusions to the iliac and femoral arteries Utilized motorized wheelchair due to severely limiting bilateral calf and thigh claudication Assessment & Plan (11/28/2024 12:51 PM EDT): Stable symptoms followed in [facility]. Continue with Aspirin, clopidogrel, rosuvastatin, ezetimibe, amlodipine, losartan, dapagliflozin, isosorbide and metoprolol. We discussed risk reduction through lifestyle choices including healthy diet, routine exercise and weight management. Assessment & Plan (07/07/2024 10:03 AM EST): Stable symptoms followed in [facility]. Continue with Aspirin, clopidogrel, rosuvastatin, ezetimibe, amlodipine, losartan, dapagliflozin, isosorbide and metoprolol. We discussed risk reduction through lifestyle choices including healthy diet, routine exercise and weight management. Hypertension 03/05/2021 Assessment & Plan (11/28/2024 12:51 PM EDT): Soft blood pressures. Continue with amlodipine, losartan, dapagliflozin, isosorbide and metoprolol. Assessment & Plan (07/07/2024 10:03 AM EST): Soft blood pressures. Continue with amlodipine, losartan, dapagliflozin, isosorbide and metoprolol. Orders: ECG 12 lead Ischemic cardiomyopathy 03/05/2021 Overview (07/05/2024): 2020 - echocardiogram showed LVEF 40-45% 2023 - echocardiogram showed LVEF 15% Assessment & Plan (11/28/2024 12:51 PM EDT): Echocardiogram from June 2024 showed profound LV [...] to assess effect of LV dysfunction. Subcutaneous [employer] ICD in place. Assessment & Plan (07/07/2024 10:03 AM EST): [...] to assess effect of LV dysfunction. Subcutaneous [employer] ICD in place. Mixed hyperlipidemia 03/05/2021 Assessment & Plan (11/28/2024 12:51 PM EDT): November 2019 - LDL 32. Will need to update lipid panel at next routine draw. Ventricular tachycardia (CMS/HCC V24, CMS/HCC V2 8) 03/05/2021 Overview (07/05/2024): Due to ischemic heart disease and profound LV dysfunction Status post [employer] single-chamber ICD in 2011August 2022 successful implantation of a subcutaneous [employer] ICD by Dr. Morgan at [facility] - this was done due to ventricular lead issues and poor access in setting of severe PAD Assessment & Plan (11/28/2024 12:51 PM EDT): No ventricular arrhythmias detected thus far. Subcutaneous [employer] ICD in place. Continue with Metoprolol. Will continue to monitor through [facility]. Assessment & Plan (07/07/2024 10:03 AM EST): No ventricular arrhythmias detected thus far. Subcutaneous [employer] ICD in place. Continue with Metoprolol. Will continue to monitor through [facility] device clinic. Renovascular hypertension 03/05/2021 Encounters Date Type Department Care Team Description 11/19/2024 2:45 PM EDT Ancillary Procedure [facility] [address] [place] [address] 11/15/2024 6:10 PM EDT Ancillary Procedure [facility] [address] [place] [address] 10/31/2024 Telephone [facility] [address] [facility] [address] [place] [address] Tapan Simmons NP Medication Problem 10/29/2024 10:10 AM EDT Office Visit [facility] [address] [place] [address] Tapan Simmons NP Coronary artery disease involving [place]kawa coronary artery of tonkawa heart with other form of angina pectoris (CMS/HCC V24) (Primary Dx); Ischemic cardiomyopathy; Ventricular tachycardia (CMS/HCC V24, CMS/HCC V28); Hypertension, unspecified type; ICD (implantable cardioverter-defibrill ator) in place; Peripheral artery disease (CMS/HCC V24); Mixed hyperlipidemia 10/07/2024 Telephone [facility] [address] [place] [address] Tapan Simmons NP Dizziness 09/03/2024 Telephone [facility] [address] [place] [address] Tapan Simmons NP Med Refill from Last 3 Months Surgical History Surgery Date Site/Laterality Comments CORONARY ARTERY BYPASS GRAFT CARDIAC CATH PROCEDURE 08/14/2019 - 08/13/2020 CAROTID ENDARTERECTOMY Left Medical History Medical History Date Comments Benign essential HTN 2020 CAD (coronary artery disease) 2020 History of coronary artery bypass graft Ischemic cardiomyopathy Mixed hyperlipidemia 2020 PAD (peripheral artery disease) ([facility]/HCC V24) Renovascular hypertension 2020 Social History Tobacco Use [...] Description 05/08/2025 10:10 AM EDT [facility] [address] [place] [phone] Tapan Simmons NP [address] [place] [address] [address] [place] [address] 05/20/2025 9:30 AM EDT Ancillary Procedure [facility] [address] [address] [facility] [address] [place] [phone] Health Maintenance Due Date Last Done Comments [...] BMP Blood Test 07/24/2022 07/17/2020, 07/17/2020, 12/04/2019 COVID-19 Vaccine (7 - Pfizer risk season) 2024 04/17/2024, 05/10/2023, 05/19/2022, Additional history exists Cholesterol Screening (Lipid Panel) 12/03/2024 12/04/2019, 12/04/2019 DTaP,Tdap,and Td Vaccines (2 - Td or Tdap) 03/12/2028 03/12/2018 Hepatitis B Vaccines Completed 08/04/2014, 02/01/2014, 01/02/2014 Hepatitis A Vaccines Aged Out 06/29/2016, 12/23/19 16 No longer eligible based on patient's age to complete this topic Pneumococcal Vaccine: 50+ Years Completed 09/16/2020, 09/02/2019 Influenza Vaccine Completed 04/17/2024, , 06/10/2022, Additional [...] this topic Medical Devices Implanted Type Area Packaging Engineer Device Identifier Shelf Expiration Date Model / Serial / Lot [id number]-[id number] Implanted:08/14 (Quantity not on file) Cardiac ICD [employer] CARD RHYTHM MGMT [id number] / [id number] / Procedures Procedure Name Priority Date/Time Associated Diagnosis Comments CARDIAC DEVICE CHECK- REMOTE- MURJ Routine 11/19/2024 2:40 PM EDT CARDIAC DEVICE CHECK- REMOTE- MURJ Routine 11/15/2024 6:06 PM EDT HM ANNUAL BMP BLOOD TEST Routine 07/17/2020 LIPID PANEL Routine 12/04/2019 from Last 3 Months or Most Recently Relevant to Health Maintenance Results * Cardiac device check - Remote- MURJ (11/19/2024 2:40 PM EDT) Only the most recent of2 resultswithin the time period is included. Date Time Interrogation Session [id number] CV DEVICE CHECK Type Interrogation Session Remote Scheduled CV DEVICE CHECK Implantable Pulse Generator Packaging Engineer BSX CV DEVICE CHECK Implantable Pulse Generator Type S-ICD CV DEVICE CHECK Implantable Pulse Generator Model A219 CV DEVICE CHECK Implantable Pulse Generator Serial Number [id number] CV DEVICE CHECK Implantable Pulse Generator Implant Date 20220824 CV DEVICE CHECK Battery Remaining Percentage 73.00 CV DEVICE CHECK Battery Status Beginning of Service CV DEVICE CHECK Therapy Statistic Recent Shocks Delivered 0 CV DEVICE CHECK Shock Measured Impedance 115 CV DEVICE CHECK Zone Setting Type Category [...] 2 CV DEVICE CHECK Date of Service 2024-11-23 CV DEVICE CHECK Anatomical Region Laterality Modality Device Interroga tion 11/13/2024 7:36 AM EDT Impressions 11/19/2024 2:31 PM EDT Normal Remote: No Events * Alerts or events: None * Battery: Battery is at 73%, * Electrode Impedance status reviewed * Presenting Rhythm: was reviewed * Programmed parameters reviewed * No significant changes noted Narrative Procedure Note Yifan Morgan MD - 11/19/2024 IMPRESSION: Normal Remote: No Events * Alerts or events: None * Battery: Battery is at 73%, * Electrode Impedance status reviewed * Presenting Rhythm: was reviewed * Programmed parameters reviewed * No significant changes noted us Yifan Morgan MD CV IMPLANTABLE CARDIAC DEVICE PROCEDURES Final Result * Annual BMP Blood Test (07/17/2020) Annual BMP Blood Test Abstracted Historical Provider HEALTH MAINTENANCE Final Result * Lipid panel (12/04/2019) Triglycerides 0 mg/dL Comment:no interpretation Cholesterol 0 mg/dL Comment:no interpretation HDL 0 mg/dL Comment:no interpretation LDL Cholesterol 0 mg/dL Comment:no interpretation Blood Venous blood specimen / Unknown Historical Provider LAB BLOOD ORDERABLES Maryanne l Result from Last 3 Months or Most Recently Relevant to Health Maintenance Insurance #2 [place] [address] [employer] MEDICARE ADVANTAGE MEDICAID - [place] Care Teams Open Shank Coverer Relationship Specialty Start Date End Date Yifan Delcid NP [address] [place], [place] PCP - General 03/10/21
[2024-12-02 08:21] LABS: MANUAL DIFF FLAG NO
[2024-12-02 08:59] LABS: Basophils Percent Auto 0.6 % (0-2); Eosinophils Absolute Auto 0.2 X10*3/uL (0.0-0.4); Eosinophils Percent Auto 2.7 % (0-4); Hematocrit 39.8 % (42.0-52.0); Hemoglobin 13.7 g/dl (14.0-18.0); Imm Gran Abs Auto 0.01 X10*3/uL (0.00-0.03); Imm Gran Pct Auto 0.2 % (0.0-0.4); Lymphocytes Absolute Auto 1.8 X10*3/uL (1.2-4.9); Lymphocytes Percent Auto 28.4 % (20-40); Mean Corpuscular HGB Conc 34.4 g/dl (31.0-36.0); Mean Corpuscular Hemoglobin 30.9 pg (27.0-33.0); Mean Corpuscular Volume 89.8 fL (80.0-98.0); Mean Platelet Volume 9.4 fL (9.4-12.4); Monocytes Absolute Auto 0.4 X10*3/uL (0.1-1.2); Monocytes Percent Auto 6.4 % (2-11); Neutrophils Absolute Auto 3.8 x10*3/uL (2.0-8.3); Neutrophils Percent Auto 61.7 % (45-73); Platelet Count 157 X10*3/uL (160-400); Red Blood Count 4.43 X10*6/uL (4.60-5.80); Red Cell Distribution Width 13.3 % (11.0-16.0); White Blood Count 6.2 X10*3/uL (4.8-10.8)
[2024-12-02 09:24] LABS: Appearance Urine Clear; Color Urine Yellow; Glucose Urine UA >=1000 mg/dL (Negative); Leukocyte Esterase Urine Negative (Negative); Nitrite Urine Negative (Negative); UMIC TRIGGER UACC YES; Urine Blood Negative (Negative); Urine Ketones Negative (Negative); Urine Protein 100 (2+) mg/dL (Neg-Trace)
[2024-12-02 09:31] LABS: Bacteria Urine None Seen (None Seen); Hyaline Casts Urine 0-2 /LPF (0-2); RBC Urine 0-2 /HPF (0-2); Squamous Epithelial Cell Urine 0-2 /HPF (0-2); WBC Urine 0-5 /HPF (0-5)
[2024-12-02 09:41] LABS: Alanine Aminotransferase 17 U/L (0-40); Alkaline Phosphatase 29 U/L (39-117); Anion Gap 14 (12-20); Aspartate Amino Transferase 25 U/L (5-37); Bilirubin Total 0.7 mg/dL (0.0-1.0); Blood Urea Nitrogen 16 mg/dL (9-16); Calcium 9.2 mg/dL (8.4-10.2); Carbon Dioxide 22 mmol/L (22-29); Chloride 107 mmol/L (96-108); Cholesterol 157 mg/dL (<200); Estimated Glomerular Filt Rate 56; Glucose Fasting 100 mg/dL (60-99); Glucose Random 100 mg/dL (60-115); HDL Cholesterol 54 mg/dL (>40); LDL Cholesterol Calculated 70 mg/dL (<100); Potassium 4.5 mmol/L (3.3-5.1); Sodium 138 mmol/L (135-145); Total Protein 6.6 g/dL (6.5-8.0); Triglycerides 169 mg/dL (<150)
[2024-12-02 10:07] LABS: TSH reflex Free T4 2.96 uIU/mL (0.32-4.0)
== END 2024-12-02 07:57 | disposition home or self-care (01) ==
LOC: HO.LAB 07:56
PROVIDERS: Absent Provider Nurse Practitioner Family; PCP Nurse Practitioner Family; Visit Provider Internal Medicine Hypertension Specialist
DX: I10 Essential (primary) hypertension (principal); R07.9 Chest pain, unspecified; N28.1 Cyst of kidney, acquired
CPT/HCPCS: 36415; 80048; 80053; 80061; 81001; 84443; 85025

== ENCOUNTER 2024-12-17 15:12 | Outpatient (AMB) | payer MEDICARE, MEDICAID, SELFPAY ==
[2024-12-17 15:21] VITALS: BP 88/62; PULSE 46; O2SAT 98
--- NOTE | 2024-12-17 15:21 | HO.NEPHOV_ITS ---
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: No Accompanied by: Self / Same As Patient Allergies meperidine [Demerol] Allergy (Unknown, Verified 12/17/24 15:23) Nausea and Vomiting ivp dye Allergy (Unknown, Uncoded 10/31/24 16:35) redness and itching Medication List - Last Reconciled 12/17/24 by Darron Hyde MD acetaminophen 500 mg PO Q6H PRN amlodipine 5 mg PO BID aspirin 81 mg PO DAILY clopidogrel 1 tab PO DAILY dapagliflozin propanediol (Farxiga) 10 mg PO DAILY ezetimibe 1 tab PO DAILY furosemide 20 mg PO DAILY isosorbide mononitrate ER 1 tab PO DAILY losartan 50 mg PO DAILY metoprolol succinate ER 200 mg PO DAILY nitroglycerin 0.4 mg sublingual PRN omega-3 fatty acids 2,000 mg (2 x 1,000 mg) PO BID 90 days omeprazole 20 mg PO DAILY 90 days ranolazine ER 1,000 mg PO BID rosuvastatin 1 tab PO BEDTIME HPI Comments Details: Pleasant elderly man with a h/o significant PVD and CAD with HTN was found to have proteinuria by dipstick Initially he had trace hematuria. Repeat UA did not show hematuria. NO RBCs were seem Referred for evaluation of proteinuria OF note, he has severe PVD. Being managed in [place] h/o ODELL - attempted stenting few years ago and was complicated by severe hemorrhage and acute KS 05/23/24; Recently in [facility] ; Underwent cardiac Cath ;Farxiga has been added 12/17/24 : seen by cardiology for chest pains. MEds were readjusted AMlodipine increased to 5 mg BID Feels tired . [facility] Medical History NSTEMI (non-ST elevated myocardial infarction) STEMI (ST elevation myocardial infarction) BCC (basal cell carcinoma), ear Thoracic aortic aneurysm Ischemic cardiomyopathy Dilated cardiomyopathy ICD (implantable cardioverter-defibrillator) in place History of blood transfusion GERD (gastroesophageal reflux disease) Hx of decubitus ulcer Renal artery stenosis Ischemic cardiomyopathy with implantable cardioverter-defibrillator (ICD) Paroxysmal ventricular tachycardia Peripheral arterial disease On beta cole at home Elevated cholesterol PVD (peripheral vascular disease) Myocardial infarction CAD (coronary artery disease) Angina pectoris HTN (hypertension) Surgical History H/O skin graft Hx of endoscopy H/O cardiac catheterization History of heart artery stent History of renal stent Hx of [id number]-jqhjwrd bypass Hx of colonoscopy Hx of CABG Family History Father History of cancer Mother History of cancer Brother Substance use disorder Family/Other Substance use disorder Social History Housing: House Do you presently have visiting nurse or other home services: No Alcohol intake: never Patient Tobacco Use Status: Former Tobacco user Years Smoked: 35 years ago e-Cigarette/Vaping Use: Never Used Second Hand Smoke Exposure: No service: No Current occupational status: retired Cognitive needs: No Hearing needs: No Vision needs: Yes Physical Exam Vital Signs: Last Vital Signs Pulse 46 L 12/17/24 15:21 BP 88/62 L 12/17/24 15:21 Pulse Ox 98 12/17/24 15:21 Oxygen Delivery Method Room Air 12/17/24 15:21 In a wheelchair Left UE 100/60 ; With a bruit over elbow Right UE : 80/50 Const General: comfortable Nutritional Appearance: well nourished Orientation/consciousness: patient oriented x3 HEENT Head: No normal to inspection Mouth: moist mucous membranes Neck Neck: Yes supple and Yes no JVD Resp Auscultation: clear to auscultation bilaterally, no rales and rub present Cardio Jugular venous distension: no JVD Palpation: no palpable S3 and no palpable S4 Heart sounds: no rubs GI Palpation (GI): Soft to palpation and nontender Percussion: No Fluid wave present General: Yes no CVA tenderness Back/Spine/Pelvis Back: no CVA tenderness Skin General skin exam: no rashes or lesions noted Neuro General: patient oriented x3 Extrem General: Yes no pedal edema and No clubbing Results Reviewed Results Reviewed: CT Mar 2024 ADRENAL GLANDS AND KIDNEYS: No adrenal mass. Atrophic right kidney. Complex cyst in the mid right kidney measures 1.3 cm with a calcified septation measuring 3 mm. Bosniak 2F. Compensatory hypertrophy of the left kidney. There is a complex density cystic capsular/perinephric lesion in the mid to lower left kidney measuring 5.5 cm. This has a layering effect suggesting old blood product. Recommend correlation for any history of renal biopsy or spontaneous hematoma. Additional cysts in the right kidney are simple and do not need any follow-up. No hydronephrosis. Nephrology Results: Hgb 13.7 g/dl (14.0-18.0) L 12/02/24 WBC 6.2 X10*3/uL (4.8-10.8) 12/02/24 Plt Count 157 X10*3/uL (160-400) L 12/02/24 Sodium 138 mmol/L (135-145) 12/02/24 Potassium 4.5 mmol/L (3.3-5.1) 12/02/24 Chloride 107 mmol/L (96-108) 12/02/24 Carbon Dioxide 22 mmol/L (22-29) 12/02/24 BUN 16 mg/dL (9-16) 12/02/24 Creatinine 1.26 mg/dL (0.5-1.4) 12/02/24 Calcium 9.2 mg/dL (8.4-10.2) 12/02/24 Urine Protein 100 (2+) mg/dL (Neg-Trace) H 12/02/24 Assessment & Plan Assessment & Plan (1) Protein in urine: Code(s): R80.9 - Proteinuria, unspecified Category: Medical Plan: Mild CKD with proteinuria Most likely due to underlying hypertensive disease GN or AiN are unlikely NO significant hematuria proteinuria - protein creatinine ratio was 0.90. UA did not reveal any significant RBCs/hematuria. Specific gravity was more than 1.010. Keep Losartan for renal protection Renal sonogram Showed complex cyst and currently being evaluated by Urology. ? cystoscopy per urlogy He has a follow up in May 2025 . (2) HTN (hypertension): Code(s): I10 - Essential (primary) hypertension Category: Medical Plan: BP is well controlled. Left arm readings greater than right arm No change in meds Low salt diet (3) PAD (peripheral artery disease): Code(s): I73.9 - Peripheral vascular disease, unspecified Category: Medical Plan: Continue follow up with Vascular surgeon (4) Renal artery stenosis: Comment: renal stent x 2 Code(s): I70.1 - Atherosclerosis of renal artery Category: Medical Plan: At present, BP is well controlled and renal function is stable Would continue conservative medical management (5) Ischemic cardiomyopathy with implantable cardioverter-defibrillator (ICD): Comment: [employer] VVI ICD Model 1411- Implanted 2015 Code(s): I25.5 - Ischemic cardiomyopathy; Z95.810 - Presence of automatic (implantable) cardiac defibrillator Category: Medical Plan: Continue close follow up with Cardiology (6) Complex renal cyst: Code(s): N28.1 - Cyst of kidney, acquired Category: Medical Plan AWait follow up and [facility] in January 2025 per Orders: Orders Basic Metabolic Panel 6 Months I10 - Essential (primary) hypertension, R80.9 - Proteinuria, unspecified Coding Level of Care Code Est Pt Level 4 (58342) Diagnoses Protein in urine R80.9 HTN (hypertension) I10 PAD (peripheral artery disease) I73.9 Renal artery stenosis I70.1 Ischemic cardiomyopathy with implantable cardioverter-defibrillator (ICD) I25.5; Z95.810 Complex renal cyst N28.1
--- OUTSIDE RECORDS SUMMARY | 2024-12-17 16:23 | XMS_ITS | Clinical Summary ---
Author Organization [facility] [employer] [facility] Address [address] [facility] [place] [address] Phone Care Team Providers Care Community Artist Name Role Phone Yifan Delcid NP Primary [...] & Plan (11/28/2024 12:51 PM EDT): Subcutaneous [employer] ICD in place. Will continue to monitor through [facility] device [facility]. Assessment & Plan (07/07/2024 10:03 AM EST): Subcutaneous [employer] ICD in place. Will continue to monitor through [facility] device clinic. Left ventricular aneurysm 08/12/2022 Overview (07/07/2024): chronic left ventricular aneurysm secondary to a inferolateral basal inferior myocardial infarction Thoracic aortic aneurysm without rupture (CMS/HC C V24) 05/12/2021 CAD (coronary artery disease) 03/15/2021 Overview (07/05/2024): 1985 - sustained [place] 2011 - CABG with PAYTON to LAD, [...] crush, chew, or split. Peripheral artery disease ([facility] V24) 03/15/20 Overview (07/07/2024): Followed by Dr. Mock at [facility] occluded left axillofemoral bypass and femoral to femoral bypass as well as occluded infrarenal aorta with occlusions to the iliac and femoral arteries Utilized motorized wheelchair due to severely limiting bilateral calf and thigh claudication Assessment & Plan (11/28/2024 12:51 PM EDT): Stable symptoms followed in [place] [facility]. Continue with Aspirin, clopidogrel, rosuvastatin, ezetimibe, amlodipine, losartan, dapagliflozin, isosorbide and metoprolol. We discussed risk reduction through lifestyle choices including healthy diet, routine exercise and weight management. Assessment & Plan (07/07/2024 10:03 AM EST): Stable symptoms followed in [facility]. Continue with Aspirin, clopidogrel, rosuvastatin, [...] to assess effect of LV dysfunction. Subcutaneous [employer] ICD in place. Assessment & Plan [...] to assess effect of LV dysfunction. Subcutaneous [employer] ICD in place. Mixed hyperlipidemia 03/05/2021 Assessment & Plan (11/28/2024 12:51 PM EDT): November 2019 - LDL 32. Will need to update lipid panel at next routine draw. Ventricular tachycardia (CMS/HCC V24, CMS/HCC V2 8) 03/05/2021 Overview (07/05/2024): Due to ischemic heart disease and profound LV dysfunction Status post [facility] [employer] single-chamber ICD in 2011August 2022 successful implantation of a subcutaneous [employer] ICD by Dr. Morgan at [facility] - this was done due to ventricular lead issues and poor access in setting of severe PAD Assessment & Plan (11/28/2024 12:51 PM EDT): No ventricular arrhythmias detected thus far. Subcutaneous [employer] ICD in place. Continue with Metoprolol. Will continue to monitor through [facility]. Assessment & Plan (07/07/2024 10:03 AM EST): No ventricular arrhythmias detected thus far. Subcutaneous [employer] ICD in place. Continue with Metoprolol. Will continue to monitor through [facility]. Renovascular hypertension 03/05/2021 Encounters Date Type Department Care Team Description 11/19/2024 2:45 PM EDT Ancillary Procedure [facility] [address] [place] [address] 11/15/2024 6:10 PM EDT Ancillary Procedure [facility] - [address] [place] [address] 10/31/2024 Telephone [facility] [address] [place] [address] Tapan Simmons NP Medication Problem 10/29/2024 10:10 AM EDT Office Visit [facility] [address] [place] [address] Tapan Simmons NP Coronary artery disease involving [place] coronary artery of [place] heart with other form of angina pectoris (CMS/HCC V24) (Primary Dx); Ischemic cardiomyopathy; Ventricular tachycardia (CMS/HCC V24, CMS/HCC V28); Hypertension, unspecified type; ICD (implantable cardioverter-defibrill ator) in place; Peripheral artery disease (CMS/HCC V24); Mixed hyperlipidemia 10/07/2024 Telephone [facility] [address] [place] [address] Tapan Simmons NP Dizziness from Last 3 Months Surgical History Surgery Date Site/Laterality Comments CORONARY ARTERY BYPASS GRAFT CARDIAC CATH PROCEDURE 08/14/2019 - 08/13/2020 CAROTID ENDARTERECTOMY Left Medical History Medical History Date Comments Benign essential HTN 2020 CAD (coronary artery disease) 2020 History of coronary artery bypass graft Ischemic cardiomyopathy Mixed hyperlipidemia 2020 PAD (peripheral artery disease) (CMS/HCC V24) Renovascular hypertension 2020 Social History Tobacco [...] Description 05/08/2025 10:10 AM EDT Office Visit [facility] [address] [place] [address] Tapan Simmons NP [address] [place] [address] [address] [place] [address] 05/20/2025 9:30 AM EDT Ancillary Procedure [facility] [address] [facility] [address] [place] [address] Health Maintenance Due Date Last Done Comments [...] this topic Medical Devices Implanted Type Area [employer] Chemist Device Identifier Shelf Expiration Date Model / Serial / Lot [id number]-[id number] Implanted:08/14 (Quantity not on file) Cardiac ICD [employer] CARD RHYTHM MGMT [id number] / [id number] / Procedures Procedure Name Priority Date/Time Associated [...] period is included. Date Time Interrogation Session [id number] CV DEVICE CHECK Type Interrogation Session Remote Scheduled CV DEVICE CHECK Implantable Pulse Generator [employer] Chemist BSX CV DEVICE CHECK Implantable Pulse Generator Type S-ICD CV DEVICE CHECK Implantable Pulse Generator Model A219 CV DEVICE CHECK Implantable Pulse Generator Serial Number [id number] CV DEVICE CHECK Implantable Pulse Generator Implant [...] MEDICARE ADVANTAGE MEDICAID - [place] Care Teams Community Artist Relationship Specialty Start Date End Date [facility] - [facility] 03/10/21
== END 2024-12-17 15:50 | disposition home or self-care (01) ==
LOC: HO.HKA 15:13
PROVIDERS: PCP Nurse Practitioner Family; Visit Provider Internal Medicine Hypertension Specialist
DX: R80.9 Proteinuria, unspecified (principal); I10 Essential (primary) hypertension; I73.9 Peripheral vascular disease, unspecified; I70.1 Atherosclerosis of renal artery; I25.5 Ischemic cardiomyopathy; Z95.810 Presence of automatic (implantable) cardiac defibrillator; N28.1 Cyst of kidney, acquired
CPT/HCPCS: 99214

== ENCOUNTER → 2024-12-17 15:12 | Outpatient (BNVA) | payer MEDICARE, MEDICAID, SELFPAY | PROVIDERS: PCP Nurse Practitioner Family; Visit Provider Internal Medicine Hypertension Specialist | DX: I73.9 Peripheral vascular disease, unspecified (principal); I70.1 Atherosclerosis of renal artery; I10 Essential (primary) hypertension; I25.5 Ischemic cardiomyopathy; N28.1 Cyst of kidney, acquired; R80.9 Proteinuria, unspecified; Z95.810 Presence of automatic (implantable) cardiac defibrillator | CPT/HCPCS: 99212 ==

== ENCOUNTER 2025-01-05 09:25 | Emergency (ER) | payer MEDICARE, MEDICAID, SELFPAY ==
--- NOTE | ~2025-01-05 | XR_ITS ---
CLINICAL HISTORY: CHF, syncopal event Chest Radiograph Comparison: None Findings: Prominent sized heart status post CABG. Right chest wall cardiac pacemaker /AICD wires are present. Normal mediastinal contours. No pneumothorax. No opacity. No pleural effusion. Normal upper abdomen. No acute fracture. Impression: No acute findings. This document has been electronically signed by: Emily Quinonez MD on 01/05/2025 13:20:31
--- NOTE | 2025-01-05 09:28 | ECG_ITS ---
Test Reason : near syncope Blood Pressure : */* mmHG Vent. Rate : 46 BPM Atrial Rate : 46 BPM P-R Int : 272 ms QRS Dur : 122 ms QT Int : 550 ms P-R-T Axes : 9 11 128 degrees QTcB Int : 481 ms Sinus bradycardia with 1st degree A-V block Minimal voltage criteria for LVH, may be normal variant ( [place] product ) Possible Inferior infarct , age undetermined ST & T wave abnormality, consider lateral ischemia Abnormal ECG No previous ECGs available Referred By: Generic ED Physician Electronically Signed By: Trent Day
[2025-01-05 09:29] VITALS: BP 115/55; PULSE 51; RESP 20; TEMP 36.1; O2SAT 98; BMI 29.9
[2025-01-05 09:55] LABS: MANUAL DIFF FLAG NO
[2025-01-05 10:03] LABS: Basophils Percent Auto 0.4 % (0-2); Eosinophils Absolute Auto 0.2 X10*3/uL (0.0-0.4); Eosinophils Percent Auto 2.4 % (0-4); Imm Gran Abs Auto 0.02 X10*3/uL (0.00-0.03); Imm Gran Pct Auto 0.3 % (0.0-0.4); Lymphocytes Absolute Auto 1.9 X10*3/uL (1.2-4.9); Lymphocytes Percent Auto 27.6 % (20-40); Mean Corpuscular HGB Conc 34.1 g/dl (31.0-36.0); Mean Corpuscular Hemoglobin 31.2 pg (27.0-33.0); Mean Corpuscular Volume 91.3 fL (80.0-98.0); Mean Platelet Volume 9.4 fL (9.4-12.4); Monocytes Absolute Auto 0.5 X10*3/uL (0.1-1.2); Monocytes Percent Auto 7.1 % (2-11); Neutrophils Absolute Auto 4.3 x10*3/uL (2.0-8.3); Neutrophils Percent Auto 62.2 % (45-73); Platelet Count 164 X10*3/uL (160-400); Red Blood Count 4.49 X10*6/uL (4.60-5.80); Red Cell Distribution Width 13.1 % (11.0-16.0)
[2025-01-05] MEDS: 0.9 % Sodium Chloride 500 ML 50 ML IV (10:04)
[2025-01-05] MEDS: ondansetron HCL 4 MG/2 ML VIAL IVPUSH (10:04)
[2025-01-05 10:17] LABS: Troponin-I High Sensitivity 20.3 ng/L (<3.5-35.0)
[2025-01-05 10:24] LABS: Alanine Aminotransferase 13 U/L (0-40); Albumin Level 3.9 g/dL (3.5-5.0); Alkaline Phosphatase 28 U/L (39-117); Anion Gap 17 (12-20); Aspartate Amino Transferase 23 U/L (5-37); Bilirubin Total 0.9 mg/dL (0.0-1.0); Blood Urea Nitrogen 26 mg/dL (9-16); Calcium 9.2 mg/dL (8.4-10.2); Carbon Dioxide 19 mmol/L (22-29); Chloride 104 mmol/L (96-108); Creatinine Clr Calc Pharmacy 49.1; Estimated Glomerular Filt Rate 46; Glucose Random 150 mg/dL (60-115); Lipase 27 U/L (8-78); Potassium 4.9 mmol/L (3.3-5.1); Sodium 135 mmol/L (135-145); Total Protein 6.6 g/dL (6.5-8.0)
--- NOTE | 2025-01-05 10:26 | PC.NURSE ---
Per verbal order from Dr. Stock, infused 500ns as a wide open bolus, not at 50ml/hr as ordered.
[2025-01-05 10:30] LABS: INTERNATIONAL NORM RATIO 1.1 (0.9-1.1); Prothrombin Time 12.8 SEC (10.9-12.4)
--- NOTE | 2025-01-05 10:43 | PC.NURSE ---
at 1000, this RN called into the room along with another RN. Pt had an episode of vomiting with eyes glazed over and a period of unresponsiveness that lasted less than one minute. After, pt came right back to AOx4 (baseline). During this episode he vomited. Dr. Stock called into room. Zofran given, 500cc bolus NS hung.
--- NOTE | 2025-01-05 10:50 | ED_ITS ---
HPI - General Adult General Chief complaint: Nausea/Vomiting/Diarrhea Stated complaint: lightheaded Time Seen by Provider: 01/05/25 09:55 History of Present Illness ED Provider: Phill Candelaria MD HPI narrative: 74-year-old male with severe CAD, CHF, PID. The patient was recently hospitalized from Monday until Monday (2 days ago) in the cardiology unit of [facility]. The patient has history of stents ICD revision they tell me he was admitted for angina refractory to nitroglycerin. Patient was in his normal state of health and comfortable in the went out to breakfast and when sitting waiting for an table he became pale and started complaining of lightheadedness. We gave him a little bit of orange juice and called EMS. The patient arrives here nausea vomiting nonbloody nonbilious just before I saw him. He also had a brief episode described as consistent with vasovagal episode just after retching he briefly became altered. No convulsive activity no incontinence no chest pain no noted events on telemetry here during that event. Related Data Home Medications ?Medication ?Instructions ?Recorded ?Confirmed aspirin 81 mg tablet,delayed 81 mg PO DAILY 05/21/20 12/17/24 release clopidogrel 75 mg tablet 1 tab PO DAILY 05/21/20 12/17/24 ezetimibe 10 mg tablet 1 tab PO DAILY 05/21/20 12/17/24 isosorbide mononitrate 30 mg 1 tab PO DAILY 05/21/20 12/17/24 tablet,extended release 24 hr rosuvastatin 20 mg tablet 1 tab PO BEDTIME 05/21/20 12/17/24 acetaminophen 325 mg tablet 500 mg PO Q6H PRN Pain 03/29/23 12/17/24 losartan 50 mg tablet 50 mg PO DAILY 12/26/23 12/17/24 nitroglycerin 0.4 mg sublingual 0.4 mg sublingual PRN 12/26/23 12/17/24 tablet dapagliflozin propanediol 10 mg 10 mg PO DAILY 05/22/24 12/17/24 tablet (Farxiga) furosemide 20 mg tablet 20 mg PO DAILY 05/22/24 12/17/24 amlodipine 5 mg tablet 5 mg PO BID 11/19/24 12/17/24 ranolazine 1,000 mg 1,000 mg PO BID 11/19/24 12/17/24 tablet,extended release,12 hr metoprolol succinate 100 mg 200 mg PO DAILY 12/17/24 12/17/24 tablet,extended release 24 hr Previous Rx's ?Medication ?Instructions ?Recorded omega-3 fatty acids 1,000 mg 2,000 mg (2 x 1,000 mg) PO BID 90 10/25/21 capsule days #360 caps omeprazole 20 mg capsule,delayed 20 mg PO DAILY 90 days #90 caps 03/28/24 release ondansetron 4 mg disintegrating 4 mg PO Q8H PRN nausea and 01/05/25 tablet vomiting #7 tabs Allergies Allergy/AdvReac Type Severity Reaction Status Date / Time meperidine [Demerol] Allergy Unknown Nausea and Verified 01/05/25 09:37 Vomiting ivp dye Allergy Unknown redness Uncoded 10/31/24 16:35 and itching PMFSH Past Medical History Medical History NSTEMI (non-ST elevated myocardial infarction) STEMI (ST elevation myocardial infarction) BCC (basal cell carcinoma), ear Thoracic aortic aneurysm Ischemic cardiomyopathy Dilated cardiomyopathy ICD (implantable cardioverter-defibrillator) in place History of blood transfusion GERD (gastroesophageal reflux disease) Hx of decubitus ulcer Renal artery stenosis Ischemic cardiomyopathy with implantable cardioverter-defibrillator (ICD) Paroxysmal ventricular tachycardia Peripheral arterial disease On beta cole at home Elevated cholesterol PVD (peripheral vascular disease) Myocardial infarction CAD (coronary artery disease) Angina pectoris HTN (hypertension) Surgical History H/O skin graft Hx of endoscopy H/O cardiac catheterization History of heart artery stent History of renal stent Hx of etmzh-beaag-wyagiqn bypass Hx of colonoscopy Hx of CABG Family History Family History Father History of cancer Mother History of cancer Brother Substance use disorder Family/Other Substance use disorder Social History Social History Housing: House Do you presently have visiting nurse or other home services: No Alcohol intake: never Patient Tobacco Use Status: Former Tobacco user Years Smoked: 35 years ago e-Cigarette/Vaping Use: Never Used Second Hand Smoke Exposure: No service: No Current occupational status: retired Cognitive needs: No Hearing needs: No Vision needs: Yes Physical Exam ED Vital Signs: Vital Signs - 24 hr 01/05/25 09:29 Temperature 97.0 F Pulse Rate 51 Respiratory Rate 20 Blood Pressure 115/55 L Pulse Oximetry 98 Oxygen Delivery Method Room Air BMI result Body Mass Index 29.9 Medications Administered Discontinued Medications Generic Name Dose Route Start Last Admin Trade Name Freq PRN Reason Stop Dose Admin Sodium Chloride 500 mls @ 50 mls/hr 01/05/25 10:00 01/05/25 10:26 Ns IV 01/05/25 19:59 Infused .Q10H TIERNEY Infusion Ondansetron HCl 4 mg 01/05/25 09:55 01/05/25 10:04 Ondansetron Hcl 4 Mg/2 Ml Vial IVPUSH 01/05/25 09:56 4 mg ONCE ONE Administration Promethazine HCl 25 mg 01/05/25 11:51 01/05/25 11:55 Promethazine Hcl 25 Mg/Ml Vial IM 01/05/25 11:52 25 mg ONCE ONE Administration Medical Decision Making Medical Decision Making [facility] Narrative: 74-year-old male with CAD, PID arrived with lightheadedness/near syncopal presentation. ICD interrogation negative for ventricular arrhythmia per my interpretation and discussion with the manufacture account service representative over the phone see that report scanned into the file. Echo consistent with most recent at [facility]. No active chest pain. I think the near syncopal events are related to retching and possible vasovagal. Troponin negative x2 they do have an outpatient appointment to discuss EP intervention Could be amiodarone adverse effect I asked him to discuss this with their white spooler Differential Diagnosis Differential Diagnoses: The differential diagnosis associated with the presentation includes Admission/Observation Consideration of admission/observation: Escalation of care including admission/observation considered Lab Data [facility] Lab Attestation statement: I reviewed the patient's lab results. 01/05/25 09:51 01/05/25 09:51 Labs: Lab Results 01/05/25 Range/Units 09:51 WBC 7.0 (4.8-10.8) X10*3/uL RBC 4.49 L (4.60-5.80) X10*6/uL Hgb 14.0 (14.0-18.0) g/dl Hct 41.0 L (42.0-52.0) % MCV 91.3 (80.0-98.0) fL MCH 31.2 (27.0-33.0) pg MCHC 34.1 (31.0-36.0) g/dl RDW 13.1 (11.0-16.0) % Plt Count 164 (160-400) X10*3/uL MPV 9.4 (9.4-12.4) fL Immature Gran % (Auto) 0.3 (0.0-0.4) % Neut % (Auto) 62.2 (45-73) % Lymph % (Auto) 27.6 (20-40) % Dewitt % (Auto) 7.1 (2-11) % Eos % (Auto) 2.4 (0-4) % Baso % (Auto) 0.4 (0-2) % Lymph # (Auto) 1.9 (1.2-4.9) X10*3/uL Dewitt # (Auto) 0.5 (0.1-1.2) X10*3/uL Eos # (Auto) 0.2 (0.0-0.4) X10*3/uL Baso # (Auto) 0.0 (0.0-0.2) X10*3/uL Abs Immat Gran (auto) 0.02 (0.00-0.03) X10*3/uL Absolute Neuts (auto) 4.3 (2.0-8.3) x10*3/uL Absolute Nucleated RBC 0.000 (0.0-0.012) X10*3/uL Nucleated RBC % (auto) 0.0 (0.0-0.2) /100WBC PT 12.8 H (10.9-12.4) SEC INR 1.1 (0.9-1.1) Sodium 135 (135-145) mmol/L Potassium 4.9 (3.3-5.1) mmol/L Chloride 104 (96-108) mmol/L Carbon Dioxide 19 L (22-29) mmol/L Anion Gap 17 (12-20) BUN 26 H (9-16) mg/dL Creatinine 1.50 H (0.5-1.4) mg/dL Estim Creat Clear Calc 49.1 Estimated GFR 46 Random Glucose 150 H (60-115) mg/dL Calcium 9.2 (8.4-10.2) mg/dL Total Bilirubin 0.9 (0.0-1.0) mg/dL AST 23 (5-37) U/L ALT 13 (0-40) U/L Alkaline Phosphatase 28 L (39-117) U/L Troponin I High Sens 20.3 (<3.5-35.0) ng/L Total Protein 6.6 (6.5-8.0) g/dL Albumin 3.9 (3.5-5.0) g/dL Lipase 27 (8-78) U/L Independent Interpretation I performed an independent interpretation of an: EKG (Sinus bradycardia rate 46 QRS 1-2. Isolated ST elevation in lead 3 only. No active chest pain during this ECG.) Independent Historian Clinical information obtained from an independent historian. History obtained from or confirmed by: Spouse and Other (Daughter) External Record Review External record reviewed: Inpatient record ([facility] recent inpatient records see below) Discharge Plan Discharge Clinical Impression: Near syncope, Nausea, Acute kidney injury Patient Disposition: Home, Self-Care Instructions: Acute Kidney Injury (DC) Additional Instructions: _ DISCHARGE DIAGNOSES: Nausea and near syncope or near passing out of unclear cause Acute kidney injury could be from dehydration or early adverse effect of amiodarone medication HISTORY OF PRESENTATION: ?New passing out lightheaded and clammy. Retching and vomiting EMERGENCY DEPARTMENT COURSE,TESTS, TREATMENTS: While in the ED today we monitored you for several hours we did at bedside echo that was consistent with your most recent echo at [facility]. Your heart rate was consistently slow but stable. We interrogated your ICD which did not show any signs of ventricular dysrhythmia. Your heart attack enzyme was negative and your electrolytes were reassuring. Kidney function was abnormal with an increase in your creatinine which could suggest acute kidney injury it is unclear what the causes could be slightly dehydrated this needs to be followed up DISCHARGE MEDICATIONS: ?[We have made no changes to your regular medication regimen] you have added Zofran anterior medications as needed for nausea FOLLOW-UP: ?Call your primary or general physician soon as possible to discuss your symptoms, your ED visit and to discuss follow up plans Call your white spooler at [facility] 1st thing tomorrow morning to discuss the symptoms and your kidney tests. Your creatinine was 1.5 this needs to be repeated within 3-5 days INSTRUCTIONS ?& RETURN PRECAUTIONS: If any symptoms change first call your primary physician, if it is after-hours your primary doctors office should have a provider oracle security consultant you can speak with. If the symptoms are severe or very concerning to you then call 911 or return to the ED. Return for chest pain severe worsening symptoms dehydration lack of urination significant shortness of breath palpitations passing out or other significant symptoms Phill Candelaria MD Emergency Physician [facility] Prescriptions: New ondansetron 4 mg tablet,disintegrating 4 mg PO Q8H PRN (Reason: nausea and vomiting) Qty: 7 0RF No Action omeprazole 20 mg capsule,delayed release(DR/EC) 20 mg PO DAILY 90 Days Qty: 90 1RF isosorbide mononitrate 30 mg tablet extended release 24 hr 1 tab PO DAILY clopidogrel 75 mg tablet 1 tab PO DAILY ezetimibe 10 mg tablet 1 tab PO DAILY rosuvastatin 20 mg tablet 1 tab PO BEDTIME aspirin [Aspir-81] 81 mg Tablet,Delayed Release (Dr/Ec) 81 mg PO DAILY acetaminophen 325 mg tablet 500 mg PO Q6H PRN (Reason: Pain) losartan 50 mg tablet 50 mg PO DAILY nitroglycerin 0.4 mg tablet, sublingual 0.4 mg sublingual PRN omega-3 fatty acids 1,000 mg capsule 2,000 mg PO BID 90 Days Qty: 360 1RF dapagliflozin propanediol [Farxiga] 10 mg tablet 10 mg PO DAILY furosemide 20 mg tablet 20 mg PO DAILY amlodipine 5 mg tablet 5 mg PO BID ranolazine 1,000 mg tablet extended release 12 hr 1,000 mg PO BID metoprolol succinate 100 mg tablet extended release 24 hr 200 mg PO DAILY Interventions: ED Discharge Assessment Last Done: 01/05/25 14:29 Discharge Date/Time: 01/05/25 14:30 Print Language: Sami
[2025-01-05 11:50] VITALS: PULSE 51; RESP 16; O2SAT 96
[2025-01-05] MEDS: Promethazine HCL 25 MG/ML VIAL IM (11:55)
[2025-01-05 12:18] VITALS: BP 132/53; PULSE 54; RESP 17; O2SAT 95
--- NOTE | 2025-01-05 12:24 | PC.NURSE ---
pt wth episode of vomiting, phernergan administered as ordered, pt moved to trauma room number 4, placed on full continuous telemetry monitoring, daughter at the bedside, call james within reach.
[2025-01-05 14:29] VITALS: BP 111/49; PULSE 54; RESP 16; TEMP 36.3; O2SAT 96
== END 2025-01-05 14:30 | disposition home or self-care (01) ==
PROVIDERS: Emergency Provider Emergency Medicine; PCP Nurse Practitioner Family
DX: R55 Syncope and collapse (principal); R11.2 Nausea with vomiting, unspecified; I25.10 Atherosclerotic heart disease of native coronary artery without angina pectoris; R00.1 Bradycardia, unspecified; R42 Dizziness and giddiness; Z79.899 Other long term (current) drug therapy; Z87.891 Personal history of nicotine dependence
CPT/HCPCS: 36415; 71045; 80053; 83690; 84484; 85025; 85610; 93005; 96372; 96374; 99284; J2405; J2550

== ENCOUNTER → 2025-01-05 09:28 | Outpatient (BNV) | payer MEDICARE, MEDICAID, SELFPAY | PROVIDERS: Emergency Provider Emergency Medicine; PCP Nurse Practitioner Family; Visit Provider Internal Medicine Cardiovascular Disease | DX: I44.0 Atrioventricular block, first degree (principal); R00.1 Bradycardia, unspecified | CPT/HCPCS: 93010 ==

== ENCOUNTER → 2025-01-05 11:34 | Outpatient (BNV) | payer MEDICARE, MEDICAID, SELFPAY | PROVIDERS: Emergency Provider Emergency Medicine; PCP Nurse Practitioner Family; Visit Provider Radiology Diagnostic Radiology | DX: I50.9 Heart failure, unspecified (principal); R55 Syncope and collapse | CPT/HCPCS: 71045 ==

== ENCOUNTER 2025-01-28 09:29 | Outpatient (REF) | payer MEDICARE, MEDICAID, SELFPAY ==
--- NOTE | ~2025-01-28 | US_ITS ---
EXAMINATION: US RETROPERITONEAL LIMITED (RENAL ONLY) CLINICAL INFORMATION: Renal cyst. COMPARISON: CT abdomen and pelvis 04/01/2024. Renal ultrasound 10/03/2023. TECHNIQUE: Real-time imaging of the kidneys. FINDINGS: RIGHT KIDNEY: 9.6 x 4.3 x 5.0 cm (SAG x AP x TRV). The kidney is normal in size, contour, and echogenicity. Renal cortical thickness is normal. No calculi identified. No hydronephrosis. There are multiple mildly complex cysts present, largest in the midpole measuring 1.8 cm (previously 1.9 cm). This is stable. LEFT KIDNEY: cm (SAG x AP x TRV). The kidney is normal in size, contour, and echogenicity. Renal cortical thickness is normal. No calculi identified. No hydronephrosis. There are multiple mildly complex cysts present, largest in the mid to lower pole measuring 5.3 x 5.6 x 5.2 cm (previously 5.9 x 5.5 x 6.3 cm), stable. US/US renal BI IMPRESSION: 1. Stable complex cysts bilaterally. Given stability, benignity is favored. 2. No calculi or hydronephrosis of either kidney. Electronically signed by: Xavier Colby MD 01/28/2025 10:47 AM EDT
--- OUTSIDE RECORDS SUMMARY | 2025-01-28 10:15 | XMS_ITS | Encounter Summary ---
Author Organization [facility] Address [address] [place] [address] Care Team Providers Care Sanitary Engineering Teacher Name Role Phone Yifan Delcid NP Primary Care Provider [phone] Reason for Visit * Reason Onset Date Comments Appointment 01/27/2025 Encounter Details Date Type Department Care Team (Late st Contact Info) Description 01/27/2025 Telephone [facility] [address] [place] [address] Tapan Simmons NP [address] [place] [address] [address] [place] [address] Appointment Social History Tobacco Use Types Packs/Day Years [...] on file documented as of this encounter Progress Notes * Harper Calle - 01/27/2025 11:31 AM EDT Patient was told he would be contacted by Dr. Morgan within a week of last visit back in the end of December. It has now been 3 weeks and patient still has not received call. Patient was told he would bereceiving a call within the week to schedule the needed appointment. documented in this encounter Plan of Treatment Upcoming Encounters Date Type Department Care Team (Late st Contact Info) Description 05/08/2025 10:10 AM EDT Office Visit [facility] [address] [place] [address] Tapan Simmons NP [address] [place] [address] [address] [place] [address] 05/20/2025 9:30 AM EDT Ancillary Procedure [facility] [address] [place] [address] documented as of this encounter Visit Diagnoses Not on filedocumented in this encounter Care Teams Sanitary Engineering Teacher Relationship Specialty Start Date End Date Yifan Delcid NP [address] [place], [place] PCP - General 03/10/21 documented as of this encounter
== END 2025-01-28 09:30 | disposition home or self-care (01) ==
LOC: HO.US 09:29
PROVIDERS: PCP Nurse Practitioner Family; Visit Provider Urology
DX: N28.1 Cyst of kidney, acquired (principal)
CPT/HCPCS: 76775

== ENCOUNTER → 2025-01-28 09:34 | Outpatient (BNV) | payer MEDICARE, MEDICAID, SELFPAY | PROVIDERS: PCP Nurse Practitioner Family; Visit Provider Radiology Diagnostic Radiology | DX: N28.1 Cyst of kidney, acquired (principal) | CPT/HCPCS: 76775 ==